=== PATIENT | male | born 1950 | race Caucasian/White ===

== ENCOUNTER → 2017-04-23 | Outpatient (CLI) | payer MEDICARE ==
[~2017-04-23] MED LIST: ACET325 PO; ALBU90OI INH; ALPR.25 PO; ALPR1 PO; Amox Tr-K Clv1 EAC2 PO; Augmentin 875-1 EACH PO; BACL20 PO; CEPH500; CEPH500 PO; CIPR500 PO; CYCL10 PO; Cipro500 MG PO; GABA300 PO; HYDR-86 PO; LEVO750 PO; LORA.5 PO; MAGCIT300 PO; NAPR500 PO; Norco 5-325 Ta1 EACH PO; OXYC15ER PO; Omeprazole20 M1 PO; PARO20 PO; POTCHL20ER PO; PREG100 PO; SEPTRA; TEMA15 PO; TRAZ100; TRAZ100 PO; TRAZ50 PO; VANCOMYCIN IV; ZOLP10; Zosyn 4.54.5 GM/100 IV
== END ==
LOC: LAB SHORT 15:00
DX: L89.219 Pressure ulcer of right hip, unspecified stage (principal)
CPT/HCPCS: 87070; 87205

== ENCOUNTER 2017-05-17 14:20 | Day surgery (SDC) | payer MEDICARE ==
[~2017-05-17 14:20] MED LIST changes: -ACET325 PO; -ALPR.25 PO; -ALPR1 PO; -Amox Tr-K Clv1 EAC2 PO; -Augmentin 875-1 EACH PO; -CEPH500 PO; -CYCL10 PO; -Cipro500 MG PO; -GABA300 PO; -LEVO750 PO; -Omeprazole20 M1 PO; -VANCOMYCIN IV; -Zosyn 4.54.5 GM/100 IV
[2017-06-11] MEDS ORDERED: TEMA15 PO (20:25)
[2017-06-15] MEDS ORDERED: Augmentin 875-1 EACH PO (14:50)
[2017-06-15] MEDS ORDERED: LEVO750 PO (14:50)
[2018-01-23] MEDS ORDERED: CEPH500 PO (17:27)
== END 2017-05-17 23:33 | disposition home or self-care (01) ==
LOC: WOUND 14:20
PROC: 2W1NX6Z Compression of Right Upper Leg using Pressure Dressing (ICD-10-PCS; principal; 2017-05-17)
DX: Z48.00 Encounter for change or removal of nonsurgical wound dressing (principal); L89.313 Pressure ulcer of right buttock, stage 3; F17.210 Nicotine dependence, cigarettes, uncomplicated
CPT/HCPCS: G0463

== ENCOUNTER 2017-05-24 00:39 | Day surgery (SDC) | payer MEDICARE ==
[2017-06-11] MEDS ORDERED: TEMA15 PO (20:25)
[2017-06-15] MEDS ORDERED: Augmentin 875-1 EACH PO (14:50)
[2017-06-15] MEDS ORDERED: LEVO750 PO (14:50)
[2018-01-23] MEDS ORDERED: CEPH500 PO (17:27)
== END 2017-05-24 17:07 | disposition home or self-care (01) ==
LOC: WOUND 00:39
PROC: 2W0LX6Z Change Pressure Dressing on Right Lower Extremity (ICD-10-PCS; principal; 2017-05-24)
DX: Z48.00 Encounter for change or removal of nonsurgical wound dressing (principal); L89.313 Pressure ulcer of right buttock, stage 3; F17.218 Nicotine dependence, cigarettes, with other nicotine-induced disorders

== ENCOUNTER 2017-05-31 14:20 | Day surgery (SDC) | payer MEDICARE ==
[2017-06-11] MEDS ORDERED: TEMA15 PO (20:25)
[2017-06-15] MEDS ORDERED: LEVO750 PO (14:50)
[2017-06-15] MEDS ORDERED: Augmentin 875-1 EACH PO (14:50)
[2018-01-23] MEDS ORDERED: CEPH500 PO (17:27)
== END 2017-05-31 15:07 | disposition home or self-care (01) ==
LOC: WOUND 14:20
PROC: 2W15X6Z Compression of Back using Pressure Dressing (ICD-10-PCS; principal; 2017-05-31)
DX: Z48.00 Encounter for change or removal of nonsurgical wound dressing (principal); L89.313 Pressure ulcer of right buttock, stage 3; F17.218 Nicotine dependence, cigarettes, with other nicotine-induced disorders

== ENCOUNTER 2017-06-07 14:20 | Day surgery (SDC) | payer MEDICARE ==
[2017-06-11] MEDS ORDERED: TEMA15 PO (20:25)
[2017-06-15] MEDS ORDERED: Augmentin 875-1 EACH PO (14:50)
[2017-06-15] MEDS ORDERED: LEVO750 PO (14:50)
[2018-01-23] MEDS ORDERED: CEPH500 PO (17:27)
== END 2017-06-07 17:17 | disposition home or self-care (01) ==
LOC: WOUND 14:20
PROC: 2W0LX6Z Change Pressure Dressing on Right Lower Extremity (ICD-10-PCS; principal; 2017-06-07)
DX: Z48.00 Encounter for change or removal of nonsurgical wound dressing (principal); L89.313 Pressure ulcer of right buttock, stage 3; F17.218 Nicotine dependence, cigarettes, with other nicotine-induced disorders

== ENCOUNTER 2017-06-11 11:52 | Inpatient (IN) | payer MEDICARE, OTHER ==
[~2017-06-11] VITALS: Ht 172.7 cm; Wt 68.1 kg
[2017-06-11 12:52] LABS: BASOPHILS ABSOLUTE AUTO 0.05 K/mm3 (0.00-0.23); BASOPHILS PERCENT AUTO 0 % (0-2); EOSINOPHILS PERCENT AUTO 2 % (0-6); Hematocrit 44.4 % (37.0-53.0); Hemoglobin 14.3 g/dL (13.5-17.5); IMMATURE GRAN ABSOLUTE AUTO 0.06 K/mm3 (0.00-0.10); IMMATURE GRAN PERCENT AUTO 1 % (0-1); LYMPHOCYTES ABSOLUTE AUTO 0.98 K/mm3 (0.84-5.20); LYMPHOCYTES PERCENT AUTO 9 % (21-46); MONOCYTES ABSOLUTE AUTO 0.06 K/mm3 (0.16-1.47); MONOCYTES PERCENT AUTO 1 % (4-13); Mean Corpuscular HGB 30.5 pg (26.0-34.0); Mean Corpuscular HGB Conc 32.2 g/dL (31.5-36.5); Mean Corpuscular Volume 95 fL (80-100); Mean Platelet Volume 9.3 fL (9.1-12.4); NEUTROPHILS ABSOLUTE AUTO 10.01 K/mm3 (1.96-9.15); NEUTROPHILS PERCENT AUTO 88 % (41-73); Platelet Count 309 K/mm3 (150-400); RDW Coefficient Variation 14.2 % (11.7-14.2); RDW Standard Deviation 49.6 fL (35.1-46.3); Red Blood Cell Count 4.69 M/mm3 (4.30-5.90); White Blood Cell Count 11.36 K/mm3 (4.00-11.30)
[2017-06-11 13:18] LABS: Alanine Aminotransfer (ALT/SGP 13 U/L (12-78); Albumin, Blood 2.9 g/dL (3.4-5.0); Albumin/Globulin Ratio 0.6 (0.8-1.8); Alk Phos 79 U/L (50-136); Anion Gap 6 mmol/L (6-16); Aspartate Aminotrans (AST/SGOT 11 U/L (12-37); Bilirubin, Total 0.2 mg/dL (0.1-1.0); Blood Urea Nitrogen 7 mg/dL (8-24); Bun/Creatinine Ratio 12.3 (12.0-20.0); CO2, Blood 32 mmol/L (21-32); Calcium, Blood 8.7 mg/dL (8.5-10.1); Chloride, Blood 103 mmol/L (98-108); Creatinine, Blood 0.57 mg/dL (0.60-1.20); Globulin, Blood 4.5 g/dL (2.2-4.0); Glomerular Filtration Rate >60 (60-); Glucose, Blood 109 mg/dL (70-99); Potassium, Blood 3.9 mmol/L (3.5-5.5); Sodium, Blood 141 mmol/L (136-145); Total Protein, Blood 7.4 g/dL (6.4-8.2)
[2017-06-11 14:47] LABS: Source, Urine Catheter
[2017-06-11 15:17] LABS: Appearance, Urine Clear (Clear); Bilirubin, Urine Neg (Neg); Blood, Urine 4+ (Neg); Color, Urine Yellow (P-Yellow); Glucose Qualitative, Urine Neg (Neg); Ketones, Urine Neg (Neg); Leukocyte Esterase, Urine 3+ (Neg); Nitrite, Urine Pos (Neg); Protein, Urine 2+ (Neg); Urobilinogen, Urine NORM (Normal)
[2017-06-11 15:26] LABS: White Blood Cells, Urine 50-100 /hpf (0-5)
[2017-06-11 15:27] LABS: Amorphous Mod (0-Heavy); Bacteria Mod /hpf; Squamous Epithelial Cells Few /hpf (Few)
[2017-06-11] MEDS ORDERED: TEMA15 PO ×2 (20:25)
[2017-06-12 04:55] LABS: BASOPHILS ABSOLUTE AUTO 0.04 K/mm3 (0.00-0.23); BASOPHILS PERCENT AUTO 0 % (0-2); EOSINOPHILS ABSOLUTE AUTO 0.09 K/mm3 (0.00-0.68); EOSINOPHILS PERCENT AUTO 1 % (0-6); Hematocrit 40.4 % (37.0-53.0); Hemoglobin 13.3 g/dL (13.5-17.5); IMMATURE GRAN ABSOLUTE AUTO 0.04 K/mm3 (0.00-0.10); IMMATURE GRAN PERCENT AUTO 0 % (0-1); LYMPHOCYTES ABSOLUTE AUTO 1.09 K/mm3 (0.84-5.20); LYMPHOCYTES PERCENT AUTO 9 % (21-46); MONOCYTES ABSOLUTE AUTO 0.58 K/mm3 (0.16-1.47); MONOCYTES PERCENT AUTO 5 % (4-13); Mean Corpuscular HGB 30.4 pg (26.0-34.0); Mean Corpuscular HGB Conc 32.9 g/dL (31.5-36.5); Mean Platelet Volume 9.5 fL (9.1-12.4); NEUTROPHILS ABSOLUTE AUTO 9.82 K/mm3 (1.96-9.15); NEUTROPHILS PERCENT AUTO 84 % (41-73); Platelet Count 251 K/mm3 (150-400); RDW Coefficient Variation 14.5 % (11.7-14.2); RDW Standard Deviation 49.1 fL (35.1-46.3); Red Blood Cell Count 4.37 M/mm3 (4.30-5.90); White Blood Cell Count 11.66 K/mm3 (4.00-11.30)
[2017-06-12 04:59] LABS: Mean Corpuscular Volume 92 fL (80-100)
[2017-06-12 05:10] LABS: Anion Gap 6 mmol/L (6-16); Blood Urea Nitrogen 5 mg/dL (8-24); Bun/Creatinine Ratio 9.4 (12.0-20.0); CO2, Blood 30 mmol/L (21-32); Calcium, Blood 8.3 mg/dL (8.5-10.1); Chloride, Blood 102 mmol/L (98-108); Creatinine, Blood 0.53 mg/dL (0.60-1.20); Glomerular Filtration Rate >60 (60-); Glucose, Blood 110 mg/dL (70-99); Potassium, Blood 3.1 mmol/L (3.5-5.5); Sodium, Blood 138 mmol/L (136-145)
[2017-06-12 18:32] LABS: Vancomycin, Trough 10.2 ug/mL (5.0-10.0)
[2017-06-13 04:49] LABS: BASOPHILS ABSOLUTE AUTO 0.03 K/mm3 (0.00-0.23); BASOPHILS PERCENT AUTO 1 % (0-2); EOSINOPHILS ABSOLUTE AUTO 0.16 K/mm3 (0.00-0.68); EOSINOPHILS PERCENT AUTO 3 % (0-6); Hematocrit 36.8 % (37.0-53.0); Hemoglobin 11.9 g/dL (13.5-17.5); IMMATURE GRAN ABSOLUTE AUTO 0.03 K/mm3 (0.00-0.10); IMMATURE GRAN PERCENT AUTO 1 % (0-1); LYMPHOCYTES ABSOLUTE AUTO 1.41 K/mm3 (0.84-5.20); LYMPHOCYTES PERCENT AUTO 23 % (21-46); MONOCYTES ABSOLUTE AUTO 0.78 K/mm3 (0.16-1.47); MONOCYTES PERCENT AUTO 13 % (4-13); Mean Corpuscular HGB 30.4 pg (26.0-34.0); Mean Corpuscular HGB Conc 32.3 g/dL (31.5-36.5); Mean Corpuscular Volume 94 fL (80-100); Mean Platelet Volume 9.4 fL (9.1-12.4); NEUTROPHILS PERCENT AUTO 61 % (41-73); Platelet Count 231 K/mm3 (150-400); RDW Coefficient Variation 14.6 % (11.7-14.2); RDW Standard Deviation 51.2 fL (35.1-46.3); Red Blood Cell Count 3.91 M/mm3 (4.30-5.90); White Blood Cell Count 6.11 K/mm3 (4.00-11.30)
[2017-06-13 05:09] LABS: Anion Gap 7 mmol/L (6-16); Blood Urea Nitrogen 9 mg/dL (8-24); Bun/Creatinine Ratio 13.7 (12.0-20.0); CO2, Blood 29 mmol/L (21-32); Calcium, Blood 7.9 mg/dL (8.5-10.1); Chloride, Blood 105 mmol/L (98-108); Creatinine, Blood 0.66 mg/dL (0.60-1.20); Glomerular Filtration Rate >60 (60-); Glucose, Blood 106 mg/dL (70-99); Potassium, Blood 3.6 mmol/L (3.5-5.5); Sodium, Blood 141 mmol/L (136-145)
[2017-06-14 17:36] LABS: Creatinine, Blood 1.19 mg/dL (0.60-1.20); Vancomycin, Trough 24.2 ug/mL (5.0-10.0)
[2017-06-15 05:10] LABS: BASOPHILS ABSOLUTE AUTO 0.04 K/mm3 (0.00-0.23); BASOPHILS PERCENT AUTO 1 % (0-2); EOSINOPHILS ABSOLUTE AUTO 0.23 K/mm3 (0.00-0.68); EOSINOPHILS PERCENT AUTO 3 % (0-6); Hematocrit 40.9 % (37.0-53.0); Hemoglobin 13.1 g/dL (13.5-17.5); IMMATURE GRAN ABSOLUTE AUTO 0.03 K/mm3 (0.00-0.10); IMMATURE GRAN PERCENT AUTO 0 % (0-1); LYMPHOCYTES ABSOLUTE AUTO 2.29 K/mm3 (0.84-5.20); LYMPHOCYTES PERCENT AUTO 30 % (21-46); MONOCYTES ABSOLUTE AUTO 0.64 K/mm3 (0.16-1.47); MONOCYTES PERCENT AUTO 8 % (4-13); Mean Corpuscular HGB 30.1 pg (26.0-34.0); Mean Corpuscular Volume 94 fL (80-100); Mean Platelet Volume 9.3 fL (9.1-12.4); NEUTROPHILS ABSOLUTE AUTO 4.38 K/mm3 (1.96-9.15); NEUTROPHILS PERCENT AUTO 58 % (41-73); Platelet Count 250 K/mm3 (150-400); RDW Coefficient Variation 14.4 % (11.7-14.2); RDW Standard Deviation 50.7 fL (35.1-46.3); Red Blood Cell Count 4.35 M/mm3 (4.30-5.90); White Blood Cell Count 7.61 K/mm3 (4.00-11.30)
[2017-06-15 05:44] LABS: Anion Gap 6 mmol/L (6-16); Blood Urea Nitrogen 9 mg/dL (8-24); Bun/Creatinine Ratio 8.8 (12.0-20.0); CO2, Blood 29 mmol/L (21-32); Calcium, Blood 8.1 mg/dL (8.5-10.1); Chloride, Blood 107 mmol/L (98-108); Creatinine, Blood 1.02 mg/dL (0.60-1.20); Glomerular Filtration Rate >60 (60-); Glucose, Blood 103 mg/dL (70-99); Potassium, Blood 3.4 mmol/L (3.5-5.5); Sodium, Blood 142 mmol/L (136-145)
[2017-06-15] MEDS ORDERED: LEVO750 PO ×2 (14:50)
[2017-06-15] MEDS ORDERED: Augmentin 875-1 EACH PO ×2 (14:50)
[2018-01-23] MEDS ORDERED: CEPH500 PO (17:27)
== END 2017-06-15 15:57 | disposition home health service (06) | DRG 570 ==
LOC: ER 11:52 → ERHOLD 17:10 → MEDS 17:10 → ENPENDDIS 06-15 10:30 → MEDS 06-15 15:57
PROVIDERS: Emergency Medicine; Internal Medicine; Physician Assistant
PROC: 0JB90ZZ Excision of Buttock Subcutaneous Tissue and Fascia, Open Approach (ICD-10-PCS; principal; 2017-06-14)
DX: L03.115 Cellulitis of right lower limb (principal); L89.314 Pressure ulcer of right buttock, stage 4; G82.20 Paraplegia, unspecified; Z93.51 Cutaneous-vesicostomy status; F17.200 Nicotine dependence, unspecified, uncomplicated; R33.9 Retention of urine, unspecified; Z79.2 Long term (current) use of antibiotics; Z79.891 Long term (current) use of opiate analgesic; R82.71 Bacteriuria; E87.6 Hypokalemia; B95.0 Streptococcus, group A, as the cause of diseases classified elsewhere; B96.4 Proteus (mirabilis) (morganii) as the cause of diseases classified elsewhere; Z16.29 Resistance to other single specified antibiotic
CPT/HCPCS: 36415; 71046; 72193; 80048; 80053; 80202; 81001; 82565; 82947; 83605; 85025; 87040; 87070; 87075; 87077; 87086; 87147; 87186; 87205; 96365; 96366; 96375; 99285; C9113; G0463; J1650; J2543; J3370; J7030; J7050; Q9967

== ENCOUNTER 2017-06-21 00:49 | Day surgery (SDC) | payer MEDICARE ==
[~2017-06-21 00:49] MED LIST changes: +Augmentin 875-1 EACH PO; +LEVO750 PO
[2018-01-23] MEDS ORDERED: CEPH500 PO (17:27)
== END 2017-06-21 23:20 | disposition home or self-care (01) ==
LOC: WOUND 00:49
PROC: 0HB6XZZ Excision of Back Skin, External Approach (ICD-10-PCS; principal; 2017-06-21)
DX: Z48.00 Encounter for change or removal of nonsurgical wound dressing (principal); L89.153 Pressure ulcer of sacral region, stage 3; F17.210 Nicotine dependence, cigarettes, uncomplicated
CPT/HCPCS: G0463

== ENCOUNTER 2017-06-26 00:16 | Day surgery (SDC) | payer MEDICARE ==
[2018-01-23] MEDS ORDERED: CEPH500 PO (17:27)
== END 2017-06-26 15:29 | disposition home or self-care (01) ==
LOC: WOUND 00:16
DX: Z48.00 Encounter for change or removal of nonsurgical wound dressing (principal); L89.313 Pressure ulcer of right buttock, stage 3; F17.210 Nicotine dependence, cigarettes, uncomplicated; G82.20 Paraplegia, unspecified
CPT/HCPCS: G0463

== ENCOUNTER 2017-07-01 00:22 | Day surgery (SDC) | payer MEDICARE ==
[2017-07-01] MEDS ORDERED: Amox Tr-K Clv1 EAC2 PO (16:00)
[2018-01-23] MEDS ORDERED: CEPH500 PO (17:27)
== END 2017-07-01 15:45 | disposition home or self-care (01) ==
LOC: WOUND 00:22
DX: Z48.00 Encounter for change or removal of nonsurgical wound dressing (principal); L89.313 Pressure ulcer of right buttock, stage 3; F17.210 Nicotine dependence, cigarettes, uncomplicated
CPT/HCPCS: G0463

== ENCOUNTER 2017-07-01 15:18 | Emergency (ER) | payer MEDICARE ==
[~2017-07-01] VITALS: Ht 170.2 cm; Wt 74.8 kg
[2017-07-01] MEDS ORDERED: Amox Tr-K Clv1 EAC2 PO (16:00)
[2018-01-23] MEDS ORDERED: CEPH500 PO (17:27)
== END 2017-07-01 16:57 | disposition home or self-care (01) ==
LOC: ER 15:18
DX: S00.83XA Contusion of other part of head, initial encounter (principal); Z79.899 Other long term (current) drug therapy; Z79.2 Long term (current) use of antibiotics; Z79.891 Long term (current) use of opiate analgesic; Z87.891 Personal history of nicotine dependence; W01.198A Fall on same level from slipping, tripping and stumbling with subsequent striking against other object, initial encounter
CPT/HCPCS: 99282

== ENCOUNTER 2017-07-09 16:07 | Emergency (ER) | payer MEDICARE, OTHER ==
[~2017-07-09] VITALS: Ht 170.2 cm; Wt 70.8 kg
[~2017-07-09 16:07] MED LIST changes: +Amox Tr-K Clv1 EAC2 PO
[2017-07-09 19:06] LABS: BASOPHILS ABSOLUTE AUTO 0.06 K/mm3 (0.00-0.23); BASOPHILS PERCENT AUTO 1 % (0-2); EOSINOPHILS ABSOLUTE AUTO 0.21 K/mm3 (0.00-0.68); EOSINOPHILS PERCENT AUTO 2 % (0-6); Hematocrit 40.3 % (37.0-53.0); Hemoglobin 13.1 g/dL (13.5-17.5); IMMATURE GRAN ABSOLUTE AUTO 0.06 K/mm3 (0.00-0.10); IMMATURE GRAN PERCENT AUTO 1 % (0-1); LYMPHOCYTES ABSOLUTE AUTO 1.63 K/mm3 (0.84-5.20); LYMPHOCYTES PERCENT AUTO 14 % (21-46); MONOCYTES ABSOLUTE AUTO 0.72 K/mm3 (0.16-1.47); MONOCYTES PERCENT AUTO 6 % (4-13); Mean Corpuscular HGB 29.6 pg (26.0-34.0); Mean Corpuscular HGB Conc 32.5 g/dL (31.5-36.5); Mean Corpuscular Volume 91 fL (80-100); Mean Platelet Volume 9.3 fL (9.1-12.4); NEUTROPHILS ABSOLUTE AUTO 8.78 K/mm3 (1.96-9.15); NEUTROPHILS PERCENT AUTO 77 % (41-73); Platelet Count 272 K/mm3 (150-400); RDW Coefficient Variation 13.5 % (11.7-14.2); RDW Standard Deviation 45.6 fL (35.1-46.3); Red Blood Cell Count 4.43 M/mm3 (4.30-5.90); White Blood Cell Count 11.46 K/mm3 (4.00-11.30)
[2017-07-09 19:23] LABS: Alanine Aminotransfer (ALT/SGP 14 U/L (12-78); Albumin, Blood 2.9 g/dL (3.4-5.0); Albumin/Globulin Ratio 0.8 (0.8-1.8); Alk Phos 82 U/L (50-136); Anion Gap 7 mmol/L (6-16); Aspartate Aminotrans (AST/SGOT 20 U/L (12-37); Bilirubin, Total 0.2 mg/dL (0.1-1.0); Blood Urea Nitrogen 8 mg/dL (8-24); Bun/Creatinine Ratio 15.5 (12.0-20.0); CO2, Blood 30 mmol/L (21-32); Calcium, Blood 8.5 mg/dL (8.5-10.1); Chloride, Blood 102 mmol/L (98-108); Creatinine, Blood 0.52 mg/dL (0.60-1.20); Globulin, Blood 3.7 g/dL (2.2-4.0); Glomerular Filtration Rate >60 (60-); Glucose, Blood 114 mg/dL (70-99); Potassium, Blood 3.4 mmol/L (3.5-5.5); Sodium, Blood 139 mmol/L (136-145); Total Protein, Blood 6.6 g/dL (6.4-8.2)
[2018-01-23] MEDS ORDERED: CEPH500 PO (17:27)
== END 2017-07-09 21:50 | disposition home or self-care (01) ==
LOC: ER 16:07
PROVIDERS: Physician Assistant
DX: S20.212A Contusion of left front wall of thorax, initial encounter (principal); Z79.899 Other long term (current) drug therapy; Z79.2 Long term (current) use of antibiotics; Z79.891 Long term (current) use of opiate analgesic; Z87.891 Personal history of nicotine dependence; V47.5XXA Car driver injured in collision with fixed or stationary object in traffic accident, initial encounter
CPT/HCPCS: 36415; 70450; 71046; 71260; 72125; 74177; 80053; 83690; 85025; 93005; 93010; 96374; 96375; 96376; 99284; J1170; J3010; Q9967

== ENCOUNTER 2017-07-15 00:34 | Day surgery (SDC) | payer MEDICARE, OTHER ==
[2018-01-23] MEDS ORDERED: CEPH500 PO (17:27)
== END 2017-07-15 22:50 | disposition home or self-care (01) ==
LOC: WOUND
DX: Z48.00 Encounter for change or removal of nonsurgical wound dressing (principal); L89.313 Pressure ulcer of right buttock, stage 3; F17.210 Nicotine dependence, cigarettes, uncomplicated
CPT/HCPCS: G0463

== ENCOUNTER 2017-07-23 13:30 | Day surgery (SDC) | payer MEDICARE ==
[2018-01-23] MEDS ORDERED: CEPH500 PO (17:27)
== END 2017-07-23 23:18 | disposition home or self-care (01) ==
LOC: WOUND 13:30
PROC: 2W15X6Z Compression of Back using Pressure Dressing (ICD-10-PCS; principal; 2017-07-23)
PROC: 0HB8XZZ Excision of Buttock Skin, External Approach (ICD-10-PCS; principal; 2017-07-23)
DX: L89.313 Pressure ulcer of right buttock, stage 3 (principal); G82.20 Paraplegia, unspecified; Z90.49 Acquired absence of other specified parts of digestive tract; F17.210 Nicotine dependence, cigarettes, uncomplicated
CPT/HCPCS: G0463

== ENCOUNTER 2017-07-29 13:55 | Day surgery (SDC) | payer MEDICARE ==
[2018-01-23] MEDS ORDERED: CEPH500 PO (17:27)
== END 2017-07-29 23:14 | disposition home or self-care (01) ==
LOC: WOUND 13:55
PROC: 0HB8XZZ Excision of Buttock Skin, External Approach (ICD-10-PCS; principal; 2017-07-29)
DX: Z48.00 Encounter for change or removal of nonsurgical wound dressing (principal); L89.314 Pressure ulcer of right buttock, stage 4; F17.218 Nicotine dependence, cigarettes, with other nicotine-induced disorders
CPT/HCPCS: 87070; 87075; 87205

== ENCOUNTER 2017-08-05 00:19 | Day surgery (SDC) | payer MEDICARE ==
[2018-01-23] MEDS ORDERED: CEPH500 PO (17:27)
== END 2017-08-05 16:54 | disposition home or self-care (01) ==
LOC: WOUND 00:19
PROC: 2W1LX6Z Compression of Right Lower Extremity using Pressure Dressing (ICD-10-PCS; principal; 2017-08-05)
DX: L89.313 Pressure ulcer of right buttock, stage 3 (principal); F17.218 Nicotine dependence, cigarettes, with other nicotine-induced disorders
CPT/HCPCS: G0463

== ENCOUNTER 2017-08-12 00:40 | Day surgery (SDC) | payer MEDICARE ==
[2018-01-23] MEDS ORDERED: CEPH500 PO (17:27)
== END 2017-08-12 15:00 | disposition home or self-care (01) ==
LOC: WOUND 00:40
PROC: 2W0LX6Z Change Pressure Dressing on Right Lower Extremity (ICD-10-PCS; principal; 2017-08-12)
DX: Z48.00 Encounter for change or removal of nonsurgical wound dressing (principal); L89.313 Pressure ulcer of right buttock, stage 3; F17.218 Nicotine dependence, cigarettes, with other nicotine-induced disorders

== ENCOUNTER 2017-08-26 13:14 | Day surgery (SDC) | payer MEDICARE | END 2017-08-26 23:19 | disposition home or self-care (01) | LOC: WOUND 13:14 | PROC: 2W1LX6Z Compression of Right Lower Extremity using Pressure Dressing (ICD-10-PCS; principal; 2017-08-26) | DX: L89.313 Pressure ulcer of right buttock, stage 3 (principal); F17.210 Nicotine dependence, cigarettes, uncomplicated | CPT/HCPCS: G0463 ==

== ENCOUNTER 2017-09-09 13:30 | Day surgery (SDC) | payer MEDICARE | END 2017-09-09 23:09 | disposition home or self-care (01) | LOC: WOUND 13:30 | PROC: 2W1LX6Z Compression of Right Lower Extremity using Pressure Dressing (ICD-10-PCS; principal; 2017-09-09) | DX: L89.314 Pressure ulcer of right buttock, stage 4 (principal); F17.210 Nicotine dependence, cigarettes, uncomplicated | CPT/HCPCS: G0463 ==

== ENCOUNTER 2017-09-23 00:49 | Day surgery (SDC) | payer MEDICARE | END 2017-09-23 22:43 | disposition home or self-care (01) | LOC: WOUND 00:49 | PROC: 2W1LX6Z Compression of Right Lower Extremity using Pressure Dressing (ICD-10-PCS; principal; 2017-09-23) | PROC: 0HB6XZZ Excision of Back Skin, External Approach (ICD-10-PCS; principal; 2017-09-23) | DX: L89.313 Pressure ulcer of right buttock, stage 3 (principal); F17.218 Nicotine dependence, cigarettes, with other nicotine-induced disorders ==

== ENCOUNTER 2017-10-03 11:00 | Day surgery (SDC) | payer MEDICARE | END 2017-10-03 14:04 | disposition home or self-care (01) | LOC: WOUND 11:00 | PROC: 0HBJXZZ Excision of Left Upper Leg Skin, External Approach (ICD-10-PCS; principal; 2017-10-03) | DX: L89.320 Pressure ulcer of left buttock, unstageable (principal); L89.313 Pressure ulcer of right buttock, stage 3; F17.218 Nicotine dependence, cigarettes, with other nicotine-induced disorders | CPT/HCPCS: G0463 ==

== ENCOUNTER 2017-10-18 15:35 | Inpatient (IN) | payer MEDICARE ==
[~2017-10-18] VITALS: Ht 172.7 cm; Wt 64.5 kg
[2017-10-18 16:10] LABS: BASOPHILS ABSOLUTE AUTO 0.04 K/mm3 (0.00-0.23); BASOPHILS PERCENT AUTO 0 % (0-2); EOSINOPHILS PERCENT AUTO 2 % (0-6); Hemoglobin 13.3 g/dL (13.5-17.5); IMMATURE GRAN ABSOLUTE AUTO 0.06 K/mm3 (0.00-0.10); IMMATURE GRAN PERCENT AUTO 1 % (0-1); LYMPHOCYTES ABSOLUTE AUTO 1.79 K/mm3 (0.84-5.20); LYMPHOCYTES PERCENT AUTO 14 % (21-46); MONOCYTES ABSOLUTE AUTO 1.39 K/mm3 (0.16-1.47); MONOCYTES PERCENT AUTO 11 % (4-13); Mean Corpuscular HGB 30.9 pg (26.0-34.0); Mean Corpuscular HGB Conc 34.1 g/dL (31.5-36.5); Mean Corpuscular Volume 91 fL (80-100); Mean Platelet Volume 9.9 fL (9.1-12.4); NEUTROPHILS ABSOLUTE AUTO 9.72 K/mm3 (1.96-9.15); NEUTROPHILS PERCENT AUTO 73 % (41-73); Platelet Count 275 K/mm3 (150-400); RDW Coefficient Variation 13.4 % (11.7-14.2); RDW Standard Deviation 45.1 fL (35.1-46.3)
[2017-10-18 16:26] LABS: Alanine Aminotransfer (ALT/SGP 14 U/L (12-78); Albumin, Blood 2.6 g/dL (3.4-5.0); Albumin/Globulin Ratio 0.6 (0.8-1.8); Alk Phos 87 U/L (50-136); Anion Gap 6 mmol/L (6-16); Aspartate Aminotrans (AST/SGOT 13 U/L (12-37); Bilirubin, Total 0.3 mg/dL (0.1-1.0); Blood Urea Nitrogen 7 mg/dL (8-24); Bun/Creatinine Ratio 15.4 (12.0-20.0); CO2, Blood 29 mmol/L (21-32); Calcium, Blood 8.3 mg/dL (8.5-10.1); Chloride, Blood 100 mmol/L (98-108); Creatinine, Blood 0.46 mg/dL (0.60-1.20); Globulin, Blood 4.1 g/dL (2.2-4.0); Glomerular Filtration Rate >60 (60-); Glucose, Blood 157 mg/dL (70-99); Potassium, Blood 3.6 mmol/L (3.5-5.5); Sodium, Blood 135 mmol/L (136-145); Total Protein, Blood 6.7 g/dL (6.4-8.2)
[2017-10-18] MEDS ORDERED: ALPR1 PO (16:34)
[2017-10-18] MEDS ORDERED: Omeprazole20 M1 PO (16:35)
[2017-10-18] MEDS ORDERED: GABA300 PO (16:53)
[2017-10-19 05:37] LABS: Hematocrit 36.6 % (37.0-53.0); Hemoglobin 12.2 g/dL (13.5-17.5); Mean Corpuscular HGB 30.3 pg (26.0-34.0); Mean Corpuscular HGB Conc 33.3 g/dL (31.5-36.5); Mean Corpuscular Volume 91 fL (80-100); Mean Platelet Volume 10.3 fL (9.1-12.4); Platelet Count 270 K/mm3 (150-400); RDW Coefficient Variation 13.5 % (11.7-14.2); RDW Standard Deviation 45.5 fL (35.1-46.3); Red Blood Cell Count 4.03 M/mm3 (4.30-5.90); White Blood Cell Count 11.24 K/mm3 (4.00-11.30)
[2017-10-19 06:01] LABS: Anion Gap 5 mmol/L (6-16); Blood Urea Nitrogen 7 mg/dL (8-24); Bun/Creatinine Ratio 15.3 (12.0-20.0); CO2, Blood 34 mmol/L (21-32); Calcium, Blood 8.6 mg/dL (8.5-10.1); Chloride, Blood 100 mmol/L (98-108); Creatinine, Blood 0.46 mg/dL (0.60-1.20); Glomerular Filtration Rate >60 (60-); Glucose, Blood 156 mg/dL (70-99); Potassium, Blood 3.6 mmol/L (3.5-5.5); Sodium, Blood 139 mmol/L (136-145)
[2017-10-19 12:36] LABS: Vancomycin, Trough 14.6 ug/mL (5.0-10.0)
[2017-10-21 04:54] LABS: BASOPHILS ABSOLUTE AUTO 0.03 K/mm3 (0.00-0.23); BASOPHILS PERCENT AUTO 0 % (0-2); EOSINOPHILS ABSOLUTE AUTO 0.45 K/mm3 (0.00-0.68); EOSINOPHILS PERCENT AUTO 4 % (0-6); Hemoglobin 11.2 g/dL (13.5-17.5); IMMATURE GRAN ABSOLUTE AUTO 0.05 K/mm3 (0.00-0.10); IMMATURE GRAN PERCENT AUTO 1 % (0-1); LYMPHOCYTES ABSOLUTE AUTO 2.15 K/mm3 (0.84-5.20); LYMPHOCYTES PERCENT AUTO 20 % (21-46); MONOCYTES ABSOLUTE AUTO 0.79 K/mm3 (0.16-1.47); MONOCYTES PERCENT AUTO 7 % (4-13); Mean Corpuscular HGB 30.6 pg (26.0-34.0); Mean Corpuscular HGB Conc 32.9 g/dL (31.5-36.5); Mean Corpuscular Volume 93 fL (80-100); Mean Platelet Volume 10.3 fL (9.1-12.4); NEUTROPHILS ABSOLUTE AUTO 7.22 K/mm3 (1.96-9.15); NEUTROPHILS PERCENT AUTO 68 % (41-73); Platelet Count 297 K/mm3 (150-400); RDW Coefficient Variation 13.7 % (11.7-14.2); RDW Standard Deviation 46.6 fL (35.1-46.3); Red Blood Cell Count 3.66 M/mm3 (4.30-5.90); White Blood Cell Count 10.69 K/mm3 (4.00-11.30)
[2017-10-22 12:38] LABS: Vancomycin, Trough 19.5 ug/mL (5.0-10.0)
[2017-10-24] MEDS ORDERED: ACET325 PO (15:37)
[2017-10-24] MEDS ORDERED: Zosyn 4.54.5 GM/100 IV (15:38)
== END 2017-10-24 16:51 | DRG 579 ==
LOC: ER 15:35 → MEDS 18:58 → EDBEDREQ 19:59 → MEDS 20:21
PROVIDERS: Family Medicine; Nurse Practitioner Family; Orthopaedic Surgery; Physician Assistant
PROC: 0JD90ZZ Extraction of Buttock Subcutaneous Tissue and Fascia, Open Approach (ICD-10-PCS; 2017-10-20)
PROC: 0JD90ZZ Extraction of Buttock Subcutaneous Tissue and Fascia, Open Approach (ICD-10-PCS; principal; 2017-10-20 08:30)
DX: L89.324 Pressure ulcer of left buttock, stage 4 (principal); L03.317 Cellulitis of buttock; G82.20 Paraplegia, unspecified; F33.9 Major depressive disorder, recurrent, unspecified; L89.314 Pressure ulcer of right buttock, stage 4; B96.5 Pseudomonas (aeruginosa) (mallei) (pseudomallei) as the cause of diseases classified elsewhere; B95.2 Enterococcus as the cause of diseases classified elsewhere; B96.4 Proteus (mirabilis) (morganii) as the cause of diseases classified elsewhere; N31.9 Neuromuscular dysfunction of bladder, unspecified; F17.210 Nicotine dependence, cigarettes, uncomplicated; Z86.19 Personal history of other infectious and parasitic diseases; R53.81 Other malaise
CPT/HCPCS: 36415; 74177; 80048; 80053; 80202; 82565; 83605; 85025; 85027; 85651; 86140; 87040; 87070; 87075; 87077; 87081; 87186; 87205; 96365; 97161; 97166; 97530; 99285; G8978; G8979; G8980; G8987; G8988; G8989; J1650; J2250; J2543; J2710; J3010; J3370; J7030; J7120; Q9967

== ENCOUNTER 2017-11-04 14:00 | Day surgery (SDC) | payer MEDICARE ==
[~2017-11-04 14:00] MED LIST changes: +ACET325 PO; +ALPR1 PO; +GABA300 PO; +Omeprazole20 M1 PO; +Zosyn 4.54.5 GM/100 IV
== END 2017-11-04 23:16 | disposition home or self-care (01) ==
LOC: WOUND 14:00
DX: Z48.00 Encounter for change or removal of nonsurgical wound dressing (principal); L89.313 Pressure ulcer of right buttock, stage 3; F17.210 Nicotine dependence, cigarettes, uncomplicated; L89.894 Pressure ulcer of other site, stage 4
CPT/HCPCS: G0463

== ENCOUNTER 2017-11-13 13:18 | Day surgery (SDC) | payer MEDICARE | END 2017-11-13 15:58 | disposition home or self-care (01) | LOC: WOUND 13:18 | DX: Z48.00 Encounter for change or removal of nonsurgical wound dressing (principal); L89.313 Pressure ulcer of right buttock, stage 3; F17.210 Nicotine dependence, cigarettes, uncomplicated; L89.894 Pressure ulcer of other site, stage 4; S91.215A Laceration without foreign body of left lesser toe(s) with damage to nail, initial encounter | CPT/HCPCS: G0463 ==

== ENCOUNTER 2017-11-13 17:04 | Inpatient (IN) | payer OTHER, MEDICARE ==
[~2017-11-13] VITALS: Ht 170.2 cm; Wt 66.4 kg
[2017-11-13 19:09] LABS: BASOPHILS ABSOLUTE AUTO 0.03 K/mm3 (0.00-0.23); BASOPHILS PERCENT AUTO 0 % (0-2); EOSINOPHILS ABSOLUTE AUTO 0.11 K/mm3 (0.00-0.68); EOSINOPHILS PERCENT AUTO 1 % (0-6); Hemoglobin 13.6 g/dL (13.5-17.5); IMMATURE GRAN ABSOLUTE AUTO 0.05 K/mm3 (0.00-0.10); IMMATURE GRAN PERCENT AUTO 1 % (0-1); LYMPHOCYTES ABSOLUTE AUTO 1.35 K/mm3 (0.84-5.20); LYMPHOCYTES PERCENT AUTO 13 % (21-46); MONOCYTES PERCENT AUTO 8 % (4-13); Mean Corpuscular HGB 30.3 pg (26.0-34.0); Mean Corpuscular HGB Conc 32.4 g/dL (31.5-36.5); Mean Corpuscular Volume 94 fL (80-100); Mean Platelet Volume 9.8 fL (9.1-12.4); NEUTROPHILS ABSOLUTE AUTO 8.38 K/mm3 (1.96-9.15); NEUTROPHILS PERCENT AUTO 78 % (41-73); Platelet Count 262 K/mm3 (150-400); RDW Coefficient Variation 14.1 % (11.7-14.2); RDW Standard Deviation 48.9 fL (35.1-46.3); Red Blood Cell Count 4.49 M/mm3 (4.30-5.90); White Blood Cell Count 10.72 K/mm3 (4.00-11.30)
[2017-11-13 19:29] LABS: Alanine Aminotransfer (ALT/SGP 16 U/L (12-78); Albumin, Blood 2.4 g/dL (3.4-5.0); Albumin/Globulin Ratio 0.5 (0.8-1.8); Alk Phos 91 U/L (50-136); Anion Gap 10 mmol/L (6-16); Aspartate Aminotrans (AST/SGOT 20 U/L (12-37); Bilirubin, Total 0.4 mg/dL (0.1-1.0); Blood Urea Nitrogen 8 mg/dL (8-24); Bun/Creatinine Ratio 14.7 (12.0-20.0); CO2, Blood 23 mmol/L (21-32); Calcium, Blood 8.3 mg/dL (8.5-10.1); Chloride, Blood 102 mmol/L (98-108); Creatinine, Blood 0.55 mg/dL (0.60-1.20); Globulin, Blood 4.4 g/dL (2.2-4.0); Glomerular Filtration Rate >60 (60-); Glucose, Blood 178 mg/dL (70-99); Potassium, Blood 3.5 mmol/L (3.5-5.5); Sodium, Blood 135 mmol/L (136-145); Total Protein, Blood 6.8 g/dL (6.4-8.2)
[2017-11-14 04:52] LABS: BASOPHILS ABSOLUTE AUTO 0.03 K/mm3 (0.00-0.23); BASOPHILS PERCENT AUTO 0 % (0-2); EOSINOPHILS ABSOLUTE AUTO 0.25 K/mm3 (0.00-0.68); EOSINOPHILS PERCENT AUTO 3 % (0-6); Hematocrit 37.2 % (37.0-53.0); Hemoglobin 12.2 g/dL (13.5-17.5); IMMATURE GRAN ABSOLUTE AUTO 0.04 K/mm3 (0.00-0.10); IMMATURE GRAN PERCENT AUTO 1 % (0-1); LYMPHOCYTES ABSOLUTE AUTO 1.93 K/mm3 (0.84-5.20); LYMPHOCYTES PERCENT AUTO 22 % (21-46); MONOCYTES ABSOLUTE AUTO 1.18 K/mm3 (0.16-1.47); MONOCYTES PERCENT AUTO 14 % (4-13); Mean Corpuscular HGB 30.4 pg (26.0-34.0); Mean Corpuscular HGB Conc 32.8 g/dL (31.5-36.5); Mean Corpuscular Volume 93 fL (80-100); Mean Platelet Volume 10.1 fL (9.1-12.4); NEUTROPHILS ABSOLUTE AUTO 5.25 K/mm3 (1.96-9.15); NEUTROPHILS PERCENT AUTO 61 % (41-73); Platelet Count 234 K/mm3 (150-400); RDW Coefficient Variation 13.8 % (11.7-14.2); RDW Standard Deviation 47.2 fL (35.1-46.3); Red Blood Cell Count 4.01 M/mm3 (4.30-5.90); White Blood Cell Count 8.68 K/mm3 (4.00-11.30)
[2017-11-14 05:22] LABS: Anion Gap 8 mmol/L (6-16); Blood Urea Nitrogen 8 mg/dL (8-24); Bun/Creatinine Ratio 16.5 (12.0-20.0); CO2, Blood 30 mmol/L (21-32); Calcium, Blood 8.2 mg/dL (8.5-10.1); Chloride, Blood 101 mmol/L (98-108); Creatinine, Blood 0.49 mg/dL (0.60-1.20); Glomerular Filtration Rate >60 (60-); Glucose, Blood 104 mg/dL (70-99); Potassium, Blood 3.7 mmol/L (3.5-5.5); Sodium, Blood 139 mmol/L (136-145)
[2017-11-15 16:53] LABS: Creatinine, Blood 0.48 mg/dL (0.60-1.20)
[2017-11-16 05:26] LABS: BASOPHILS ABSOLUTE AUTO 0.02 K/mm3 (0.00-0.23); BASOPHILS PERCENT AUTO 0 % (0-2); EOSINOPHILS ABSOLUTE AUTO 0.48 K/mm3 (0.00-0.68); EOSINOPHILS PERCENT AUTO 6 % (0-6); Hematocrit 31.2 % (37.0-53.0); Hemoglobin 10.1 g/dL (13.5-17.5); IMMATURE GRAN ABSOLUTE AUTO 0.03 K/mm3 (0.00-0.10); IMMATURE GRAN PERCENT AUTO 0 % (0-1); LYMPHOCYTES ABSOLUTE AUTO 1.67 K/mm3 (0.84-5.20); LYMPHOCYTES PERCENT AUTO 22 % (21-46); MONOCYTES ABSOLUTE AUTO 0.57 K/mm3 (0.16-1.47); MONOCYTES PERCENT AUTO 8 % (4-13); Mean Corpuscular HGB 30.2 pg (26.0-34.0); Mean Corpuscular HGB Conc 32.4 g/dL (31.5-36.5); Mean Corpuscular Volume 93 fL (80-100); Mean Platelet Volume 10.2 fL (9.1-12.4); NEUTROPHILS ABSOLUTE AUTO 4.68 K/mm3 (1.96-9.15); NEUTROPHILS PERCENT AUTO 63 % (41-73); Platelet Count 258 K/mm3 (150-400); RDW Coefficient Variation 13.9 % (11.7-14.2); RDW Standard Deviation 47.4 fL (35.1-46.3); Red Blood Cell Count 3.34 M/mm3 (4.30-5.90); White Blood Cell Count 7.45 K/mm3 (4.00-11.30)
[2017-11-16 06:02] LABS: Creatinine, Blood 0.53 mg/dL (0.60-1.20); Vancomycin, Trough 9.1 ug/mL (5.0-10.0)
[2017-11-18 06:40] LABS: Vancomycin, Trough 9.2 ug/mL (5.0-10.0)
[2017-11-18] MEDS ORDERED: VANCOMYCIN IV (14:02)
[2017-11-18] MEDS ORDERED: ALPR.25 PO (14:02)
[2017-11-19 06:05] LABS: Creatinine, Blood 0.51 mg/dL (0.60-1.20); Glomerular Filtration Rate >60 (60-); Vancomycin, Trough 14.6 ug/mL (5.0-10.0)
== END 2017-11-19 11:15 | DRG 570 ==
LOC: ER 17:04 → MEDS 23:08 → EDPENDDIS 11-18 13:34 → ENPENDDIS 11-18 13:34 → MEDS 11-19 05:41
PROVIDERS: Emergency Medicine; Internal Medicine; Nurse Practitioner Acute Care; Orthopaedic Surgery
PROC: 0JB90ZZ Excision of Buttock Subcutaneous Tissue and Fascia, Open Approach (ICD-10-PCS; principal; 2017-11-15 13:00)
PROC: 0Y6S0Z0 Detachment at Left 2nd Toe, Complete, Open Approach (ICD-10-PCS; 2017-11-15 13:00)
DX: L89.324 Pressure ulcer of left buttock, stage 4 (principal); G82.20 Paraplegia, unspecified; L89.314 Pressure ulcer of right buttock, stage 4; N31.9 Neuromuscular dysfunction of bladder, unspecified; B96.89 Other specified bacterial agents as the cause of diseases classified elsewhere; S90.415A Abrasion, left lesser toe(s), initial encounter; S90.414A Abrasion, right lesser toe(s), initial encounter; B95.62 Methicillin resistant Staphylococcus aureus infection as the cause of diseases classified elsewhere; F17.210 Nicotine dependence, cigarettes, uncomplicated; Z96.0 Presence of urogenital implants; R53.81 Other malaise; Z66 Do not resuscitate; X58.XXXA Exposure to other specified factors, initial encounter; Z86.19 Personal history of other infectious and parasitic diseases; Z79.899 Other long term (current) drug therapy; T14.8XXD Other injury of unspecified body region, subsequent encounter; V49.9XXD Car occupant (driver) (passenger) injured in unspecified traffic accident, subsequent encounter; Y93.89 Activity, other specified; Y92.481 Parking lot as the place of occurrence of the external cause; Z93.3 Colostomy status
CPT/HCPCS: 36415; 73630; 80048; 80053; 80202; 82565; 85025; 87070; 87077; 87147; 87186; 87205; 96365; 96375; 97161; 99285; G0463; G8978; G8979; G8980; J1956; J2001; J2250; J2543; J3010; J3370; J7030; J7120

== ENCOUNTER 2017-11-22 11:40 | Emergency (ER) | payer MEDICARE ==
[~2017-11-22] VITALS: Ht 172.7 cm; Wt 66.2 kg
[~2017-11-22 11:40] MED LIST changes: +ALPR.25 PO; +VANCOMYCIN IV
[2017-11-22] MEDS ORDERED: CYCL10 PO (11:59)
== END 2017-11-22 15:00 | disposition home or self-care (01) ==
LOC: ER 11:40
DX: L89.154 Pressure ulcer of sacral region, stage 4 (principal); F17.200 Nicotine dependence, unspecified, uncomplicated; Z79.899 Other long term (current) drug therapy

== ENCOUNTER → 2018-06-13 | Outpatient (CLI) | payer MEDICARE, OTHER ==
[~2018-06-13] MED LIST changes: +CEPH500 PO; +CYCL10 PO; +Cipro500 MG PO
[2018-06-13 17:55] LABS: Source, Urine Clean Catch
[2018-06-13 18:05] LABS: Appearance, Urine Cloudy (Clear); Bilirubin, Urine Neg (Neg); Blood, Urine 5+ (Neg); Color, Urine Red (P-Yellow); Glucose Qualitative, Urine Neg (Neg); Ketones, Urine Neg (Neg); Leukocyte Esterase, Urine 3+ (Neg); Nitrite, Urine Neg (Neg); Protein, Urine 3+ (Neg); Specific Gravity, Urine 1.015 (1.003-1.022); Urobilinogen, Urine NORM (Normal)
[2018-06-13 18:24] LABS: Bacteria Many /hpf; Red Blood Cells, Urine TNTC /hpf (0-2); Squamous Epithelial Cells Mod /hpf (Few); White Blood Cells, Urine 25-50 /hpf (0-5)
== END | disposition home or self-care (01) ==
LOC: LAB SHORT 13:00 → LAB 13:00
PROVIDERS: Family Medicine
DX: N39.0 Urinary tract infection, site not specified (principal)
CPT/HCPCS: 81001; 87077; 87086; 87186

== ENCOUNTER 2018-06-17 14:35 | Emergency (ER) | payer MEDICARE, OTHER ==
[~2018-06-17] VITALS: Ht 172.7 cm; Wt 68.0 kg
[~2018-06-17 14:35] MED LIST changes: -Cipro500 MG PO
[2018-06-17] MEDS ORDERED: Cipro500 MG PO (15:19)
== END 2018-06-17 17:15 | disposition home or self-care (01) ==
LOC: ER 14:35
DX: N39.0 Urinary tract infection, site not specified (principal); L89.159 Pressure ulcer of sacral region, unspecified stage; Z79.899 Other long term (current) drug therapy; F17.210 Nicotine dependence, cigarettes, uncomplicated
CPT/HCPCS: 96365; 96366; 99283-25; J0744

== ENCOUNTER → 2018-07-28 | Outpatient (CLI) | payer MEDICARE, OTHER ==
[~2018-07-28] MED LIST changes: +Cipro500 MG PO
== END | disposition home or self-care (01) ==
LOC: LAB 19:00 → LAB SHORT 19:00
DX: G82.20 Paraplegia, unspecified (principal); L89.324 Pressure ulcer of left buttock, stage 4; L89.313 Pressure ulcer of right buttock, stage 3
CPT/HCPCS: 87070; 87075; 87077; 87147; 87186; 87205

== ENCOUNTER → 2018-07-30 | Outpatient (CLI) | payer MEDICARE, OTHER ==
[2018-07-30 17:41] LABS: Source, Urine Catheter
[2018-07-30 18:02] LABS: Appearance, Urine Cloudy (Clear); Bilirubin, Urine Neg (Neg); Blood, Urine 5+ (Neg); Color, Urine Yellow (P-Yellow); Glucose Qualitative, Urine Neg (Neg); Ketones, Urine 1+ (Neg); Leukocyte Esterase, Urine 3+ (Neg); Nitrite, Urine Pos (Neg); Protein, Urine 2+ (Neg); Urobilinogen, Urine NORM (Normal)
[2018-07-30 18:39] LABS: Bacteria Many /hpf; Squamous Epithelial Cells Many /hpf (Few); White Blood Cells, Urine TNTC /hpf (0-5)
== END ==
LOC: LAB SHORT 17:40 → LAB 17:40
PROVIDERS: Nurse Practitioner Family
DX: N39.0 Urinary tract infection, site not specified (principal); G82.20 Paraplegia, unspecified
CPT/HCPCS: 81001; 87077; 87086; 87186

== ENCOUNTER 2018-08-20 11:43 | Day surgery (SDC) | payer MEDICARE, OTHER | END 2018-08-20 23:10 | disposition home or self-care (01) | LOC: WOUND 11:43 | DX: L89.324 Pressure ulcer of left buttock, stage 4 (principal); J44.9 Chronic obstructive pulmonary disease, unspecified; G82.20 Paraplegia, unspecified; Z87.891 Personal history of nicotine dependence; Z87.828 Personal history of other (healed) physical injury and trauma | CPT/HCPCS: 87070; 87075; 87077; 87147; 87186; 87205; 88305; 88312; G0463 ==

== ENCOUNTER 2018-08-29 12:30 | Day surgery (SDC) | payer MEDICARE, OTHER | END 2018-08-29 23:37 | disposition home or self-care (01) | LOC: WOUND 12:30 | DX: L89.324 Pressure ulcer of left buttock, stage 4 (principal); J44.9 Chronic obstructive pulmonary disease, unspecified; G82.20 Paraplegia, unspecified; E78.5 Hyperlipidemia, unspecified; Z87.891 Personal history of nicotine dependence ==

== ENCOUNTER 2018-09-04 14:20 | Day surgery (SDC) | payer MEDICARE, OTHER | END 2018-09-04 22:44 | disposition home or self-care (01) | LOC: WOUND 14:20 | DX: L89.324 Pressure ulcer of left buttock, stage 4 (principal); G82.20 Paraplegia, unspecified; E78.5 Hyperlipidemia, unspecified; J44.9 Chronic obstructive pulmonary disease, unspecified; Z87.891 Personal history of nicotine dependence ==

== ENCOUNTER 2018-09-11 14:33 | Day surgery (SDC) | payer MEDICARE, OTHER | END 2018-09-12 00:42 | disposition home or self-care (01) | LOC: WOUND 14:33 | DX: L89.324 Pressure ulcer of left buttock, stage 4 (principal); G62.9 Polyneuropathy, unspecified; J44.9 Chronic obstructive pulmonary disease, unspecified; G82.20 Paraplegia, unspecified; Z87.891 Personal history of nicotine dependence | CPT/HCPCS: 72193; G0463 ==

== ENCOUNTER 2018-09-18 14:00 | Day surgery (SDC) | payer MEDICARE, OTHER | END 2018-09-18 22:43 | disposition home or self-care (01) | LOC: WOUND 14:00 | DX: L89.314 Pressure ulcer of right buttock, stage 4 (principal); J44.9 Chronic obstructive pulmonary disease, unspecified; E78.5 Hyperlipidemia, unspecified; G82.20 Paraplegia, unspecified; Z87.891 Personal history of nicotine dependence ==

== ENCOUNTER → 2018-09-30 | Outpatient (CLI) | payer MEDICARE, OTHER ==
[2018-09-30 18:10] LABS: Bilirubin, Urine Neg (Neg); Blood, Urine 1+ (Neg); Glucose Qualitative, Urine Neg (Neg); Ketones, Urine Neg (Neg); Leukocyte Esterase, Urine 2+ (Neg); Nitrite, Urine Neg (Neg); Protein, Urine Neg (Neg); Urobilinogen, Urine NORM (Normal)
[2018-09-30 18:37] LABS: Appearance, Urine Hazy (Clear); Color, Urine Yellow (P-Yellow)
[2018-09-30 18:38] LABS: White Blood Cells, Urine 25-50 /hpf (0-5)
[2018-09-30 18:39] LABS: Bacteria Mod /hpf; Squamous Epithelial Cells Mod /hpf (Few)
== END | disposition home or self-care (01) ==
LOC: LAB SHORT 14:35 → LAB 14:35
PROVIDERS: Registered Nurse
DX: N30.20 Other chronic cystitis without hematuria (principal)
CPT/HCPCS: 81001

== ENCOUNTER 2018-10-02 00:37 | Day surgery (SDC) | payer MEDICARE, OTHER | END 2018-10-02 22:43 | disposition home or self-care (01) | LOC: WOUND 00:37 | DX: L89.324 Pressure ulcer of left buttock, stage 4 (principal); J44.9 Chronic obstructive pulmonary disease, unspecified; E78.5 Hyperlipidemia, unspecified; D64.9 Anemia, unspecified; Z87.891 Personal history of nicotine dependence ==

== ENCOUNTER 2018-10-09 00:56 | Day surgery (SDC) | payer MEDICARE, OTHER | END 2018-10-09 22:56 | disposition home or self-care (01) | LOC: WOUND 00:56 | DX: L89.324 Pressure ulcer of left buttock, stage 4 (principal); L89.313 Pressure ulcer of right buttock, stage 3; J44.9 Chronic obstructive pulmonary disease, unspecified; E78.5 Hyperlipidemia, unspecified; D64.9 Anemia, unspecified; Z87.891 Personal history of nicotine dependence ==

== ENCOUNTER 2018-10-16 14:44 | Day surgery (SDC) | payer MEDICARE, OTHER | END 2018-10-16 23:10 | disposition home or self-care (01) | LOC: WOUND 14:44 | DX: L89.324 Pressure ulcer of left buttock, stage 4 (principal); J44.9 Chronic obstructive pulmonary disease, unspecified; D64.9 Anemia, unspecified; E78.5 Hyperlipidemia, unspecified; Z87.891 Personal history of nicotine dependence | CPT/HCPCS: G0463 ==

== ENCOUNTER 2018-10-23 14:35 | Day surgery (SDC) | payer MEDICARE, OTHER | END 2018-10-23 22:41 | disposition home or self-care (01) | LOC: WOUND 14:35 | DX: L89.324 Pressure ulcer of left buttock, stage 4 (principal); L89.313 Pressure ulcer of right buttock, stage 3; J44.9 Chronic obstructive pulmonary disease, unspecified; E78.5 Hyperlipidemia, unspecified; D64.9 Anemia, unspecified; Z87.891 Personal history of nicotine dependence | CPT/HCPCS: G0463 ==

== ENCOUNTER 2018-10-30 14:28 | Day surgery (SDC) | payer MEDICARE, OTHER | END 2018-10-30 23:22 | disposition home or self-care (01) | LOC: WOUND 14:28 | DX: L89.324 Pressure ulcer of left buttock, stage 4 (principal); J44.9 Chronic obstructive pulmonary disease, unspecified; G82.20 Paraplegia, unspecified; Z72.0 Tobacco use | CPT/HCPCS: G0463 ==

== ENCOUNTER 2018-11-06 14:15 | Day surgery (SDC) | payer MEDICARE, OTHER | END 2018-11-06 22:44 | disposition home or self-care (01) | LOC: WOUND 14:15 | DX: L89.314 Pressure ulcer of right buttock, stage 4 (principal); G82.20 Paraplegia, unspecified; J44.9 Chronic obstructive pulmonary disease, unspecified; Z72.0 Tobacco use | CPT/HCPCS: G0463 ==

== ENCOUNTER 2018-11-11 10:02 | Day surgery (SDC) | payer MEDICARE, OTHER | END 2018-11-11 22:59 | disposition home or self-care (01) | LOC: CT 10:02 | DX: L89.323 Pressure ulcer of left buttock, stage 3 (principal); J44.9 Chronic obstructive pulmonary disease, unspecified; E78.5 Hyperlipidemia, unspecified; F32.9 Major depressive disorder, single episode, unspecified; F41.9 Anxiety disorder, unspecified; Z87.891 Personal history of nicotine dependence | CPT/HCPCS: 20225; 77012; 88305 ==

== ENCOUNTER 2018-11-27 14:26 | Day surgery (SDC) | payer MEDICARE, OTHER | END 2018-11-27 22:53 | disposition home or self-care (01) | LOC: WOUND 14:26 | DX: L89.324 Pressure ulcer of left buttock, stage 4 (principal); F17.210 Nicotine dependence, cigarettes, uncomplicated; G62.9 Polyneuropathy, unspecified; J44.9 Chronic obstructive pulmonary disease, unspecified; E78.5 Hyperlipidemia, unspecified; G82.20 Paraplegia, unspecified | CPT/HCPCS: G0463 ==

== ENCOUNTER 2018-12-04 00:23 | Day surgery (SDC) | payer MEDICARE, OTHER | END 2018-12-04 22:50 | disposition home or self-care (01) | LOC: WOUND 00:23 | DX: L89.324 Pressure ulcer of left buttock, stage 4 (principal); L89.313 Pressure ulcer of right buttock, stage 3; E11.40 Type 2 diabetes mellitus with diabetic neuropathy, unspecified; J44.9 Chronic obstructive pulmonary disease, unspecified; E78.5 Hyperlipidemia, unspecified; D64.9 Anemia, unspecified; Z87.891 Personal history of nicotine dependence | CPT/HCPCS: G0463 ==

== ENCOUNTER 2018-12-11 01:41 | Inpatient (IN) | payer MEDICARE, OTHER ==
[~2018-12-11] VITALS: Ht 170.2 cm; Wt 72.6 kg
[2018-12-11 01:55] LABS: BASOPHILS ABSOLUTE AUTO 0.03 K/mm3 (0.00-0.23); BASOPHILS PERCENT AUTO 0 % (0-2); EOSINOPHILS ABSOLUTE AUTO 0.21 K/mm3 (0.00-0.68); EOSINOPHILS PERCENT AUTO 2 % (0-6); Hematocrit 33.4 % (37.0-53.0); Hemoglobin 10.8 g/dL (13.5-17.5); IMMATURE GRAN ABSOLUTE AUTO 0.05 K/mm3 (0.00-0.10); IMMATURE GRAN PERCENT AUTO 1 % (0-1); LYMPHOCYTES ABSOLUTE AUTO 2.31 K/mm3 (0.84-5.20); LYMPHOCYTES PERCENT AUTO 21 % (21-46); MONOCYTES ABSOLUTE AUTO 1.39 K/mm3 (0.16-1.47); MONOCYTES PERCENT AUTO 13 % (4-13); Mean Corpuscular HGB 27.3 pg (26.0-34.0); Mean Corpuscular HGB Conc 32.3 g/dL (31.5-36.5); Mean Corpuscular Volume 85 fL (80-100); NEUTROPHILS PERCENT AUTO 64 % (41-73); Platelet Count 333 K/mm3 (150-400); RDW Coefficient Variation 15.1 % (11.7-14.2); RDW Standard Deviation 46.3 fL (35.1-46.3); Red Blood Cell Count 3.95 M/mm3 (4.30-5.90); White Blood Cell Count 11.09 K/mm3 (4.00-11.30)
[2018-12-11 02:14] LABS: Alanine Aminotransfer (ALT/SGP 14 U/L (12-78); Albumin, Blood 2.4 g/dL (3.4-5.0); Albumin/Globulin Ratio 0.6 (0.8-1.8); Alk Phos 69 U/L (50-136); Anion Gap 7 mmol/L (6-16); Aspartate Aminotrans (AST/SGOT 18 U/L (12-37); Bilirubin, Total 0.3 mg/dL (0.1-1.0); Blood Urea Nitrogen 12 mg/dL (8-24); CO2, Blood 30 mmol/L (21-32); Chloride, Blood 97 mmol/L (98-108); Globulin, Blood 3.8 g/dL (2.2-4.0); Glomerular Filtration Rate >60 (60-); Glucose, Blood 154 mg/dL (70-99); Potassium, Blood 3.8 mmol/L (3.5-5.5); Sodium, Blood 134 mmol/L (136-145); Total Protein, Blood 6.2 g/dL (6.4-8.2)
[2018-12-11 02:40] LABS: Source, Urine Catheter
[2018-12-11 02:43] LABS: Appearance, Urine Cloudy (Clear); Bilirubin, Urine Neg (Neg); Blood, Urine 4+ (Neg); Color, Urine Yellow (P-Yellow); Glucose Qualitative, Urine Neg (Neg); Ketones, Urine Neg (Neg); Leukocyte Esterase, Urine 3+ (Neg); Nitrite, Urine Neg (Neg); Protein, Urine 2+ (Neg); Urobilinogen, Urine NORM (Normal)
[2018-12-11 02:49] LABS: Amorphous Mod (0-Heavy); Bacteria Many /hpf; Red Blood Cells, Urine 0-2 /hpf (0-2); Squamous Epithelial Cells Mod /hpf (Few)
[2018-12-11] MEDS ORDERED: Oxycodone HCl20 M1 PO (03:56)
[2018-12-11 05:30] LABS: Hematocrit 33.8 % (37.0-53.0); Mean Corpuscular HGB 27.6 pg (26.0-34.0); Mean Corpuscular HGB Conc 32.5 g/dL (31.5-36.5); Mean Corpuscular Volume 85 fL (80-100); Mean Platelet Volume 9.9 fL (9.1-12.4); Platelet Count 294 K/mm3 (150-400); RDW Coefficient Variation 15.3 % (11.7-14.2); RDW Standard Deviation 47.8 fL (35.1-46.3); Red Blood Cell Count 3.99 M/mm3 (4.30-5.90); White Blood Cell Count 10.37 K/mm3 (4.00-11.30)
[2018-12-11 05:59] LABS: Alanine Aminotransfer (ALT/SGP 11 U/L (12-78); Albumin, Blood 2.2 g/dL (3.4-5.0); Albumin/Globulin Ratio 0.6 (0.8-1.8); Alk Phos 66 U/L (50-136); Anion Gap 6 mmol/L (6-16); Aspartate Aminotrans (AST/SGOT 19 U/L (12-37); Bilirubin, Total 0.3 mg/dL (0.1-1.0); Blood Urea Nitrogen 9 mg/dL (8-24); Bun/Creatinine Ratio 19.6 (12.0-20.0); CO2, Blood 28 mmol/L (21-32); Calcium, Blood 7.5 mg/dL (8.5-10.1); Chloride, Blood 103 mmol/L (98-108); Creatinine, Blood 0.46 mg/dL (0.60-1.20); Globulin, Blood 3.7 g/dL (2.2-4.0); Glomerular Filtration Rate >60 (60-); Glucose, Blood 119 mg/dL (70-99); Potassium, Blood 3.3 mmol/L (3.5-5.5); Sodium, Blood 137 mmol/L (136-145); Total Protein, Blood 5.9 g/dL (6.4-8.2)
--- NOTE | 2018-12-11 17:29 | NUR ---
PATIENT IS A/O X4 AND COOPERATIVE WITH CARE. PATIENT IS A PARAPLEGIC WHO HAS A SP CATH AND WAS ADMITTED FOR A UTI. TREATING WITH IV ABX. PATIENT HAS LARGE WOUND TO L BUTTOCK AND HAS BEEN GOING TO WOUND CLINIC FOR TREATMENT. WOUND CLINIC CONSULTED, BUT ARE NOT ABLE TO SEE INPATIENTS. WOUND CLINIC HAS BEEN USING ALGINATE ROPE AND FOAM DRESSING TO TREAT WOUND. DR CLEARY GAVE ORDERS TO CONTINUE THIS TREATMENT. PATIENT ALSO HAS WOUNDS TO TOES THAT HE STATES ARE FROM HIS TOES GETTING CAUGHT IN HIS WHEEL CHAIR. HYPOTENSIVE THIS AM AND 250CC NS BOLUS WAS GIVEN TO TREAT. 22G IV TO L WRIST WNL, NS @ 75 INFUSING AND WILL BE SL AFTER THIS BAG.
--- NOTE | 2018-12-12 04:44 | NUR ---
SHIFT SUMMARY PT SLEPT THE ENTIRE SHIFT EXCEPT WHEN WOKEN BY STAFF. DID NOT APPEAR TO BE IN ANY PAIN OR DISCOMFORT. REPORTED SOME PAIN TO BUTTUCKS WHEN WOKEN BUT FALLS RIGHT BACK ASLEEP. DRESSING TO R BUTTUCKS PRESSURE ULCER CHANGED WITH ALGINATE AND A FOAM DRESSING. R HIP LOOKS IF A PRESSURE SORE COULD BE FORMING, EDUCATED PT ON NEED TO REPOSITION. PT FAVORS BEING ON THE RIGHT SIDE BUT IS COOPERATIVE WITH TURNING. BLOOD PRESSURE REMAINS LOW THIS EVENING IN THE 90'S TO LOW 100'S. OTHERWISE VITAL SIGNS STABLE. NO ACUTE CHANGES THIS SHIFT. WILL CONTINUE TO MONITOR.
[2018-12-12 05:37] LABS: BASOPHILS ABSOLUTE AUTO 0.02 K/mm3 (0.00-0.23); BASOPHILS PERCENT AUTO 0 % (0-2); EOSINOPHILS ABSOLUTE AUTO 0.42 K/mm3 (0.00-0.68); EOSINOPHILS PERCENT AUTO 6 % (0-6); Hematocrit 33.3 % (37.0-53.0); Hemoglobin 10.7 g/dL (13.5-17.5); IMMATURE GRAN ABSOLUTE AUTO 0.03 K/mm3 (0.00-0.10); IMMATURE GRAN PERCENT AUTO 0 % (0-1); LYMPHOCYTES ABSOLUTE AUTO 1.54 K/mm3 (0.84-5.20); LYMPHOCYTES PERCENT AUTO 22 % (21-46); MONOCYTES PERCENT AUTO 9 % (4-13); Mean Corpuscular HGB 27.7 pg (26.0-34.0); Mean Corpuscular HGB Conc 32.1 g/dL (31.5-36.5); Mean Corpuscular Volume 86 fL (80-100); Mean Platelet Volume 9.8 fL (9.1-12.4); NEUTROPHILS ABSOLUTE AUTO 4.37 K/mm3 (1.96-9.15); NEUTROPHILS PERCENT AUTO 63 % (41-73); Platelet Count 336 K/mm3 (150-400); RDW Coefficient Variation 15.9 % (11.7-14.2); RDW Standard Deviation 50.2 fL (35.1-46.3); Red Blood Cell Count 3.86 M/mm3 (4.30-5.90); White Blood Cell Count 6.98 K/mm3 (4.00-11.30)
[2018-12-12 05:59] LABS: Alanine Aminotransfer (ALT/SGP 18 U/L (12-78); Albumin, Blood 1.9 g/dL (3.4-5.0); Albumin/Globulin Ratio 0.5 (0.8-1.8); Alk Phos 59 U/L (50-136); Anion Gap 4 mmol/L (6-16); Aspartate Aminotrans (AST/SGOT 18 U/L (12-37); Bilirubin, Total 0.2 mg/dL (0.1-1.0); Blood Urea Nitrogen 5 mg/dL (8-24); Bun/Creatinine Ratio 11.6 (12.0-20.0); CO2, Blood 28 mmol/L (21-32); Calcium, Blood 7.8 mg/dL (8.5-10.1); Chloride, Blood 111 mmol/L (98-108); Creatinine, Blood 0.43 mg/dL (0.60-1.20); Globulin, Blood 3.5 g/dL (2.2-4.0); Glomerular Filtration Rate >60 (60-); Glucose, Blood 112 mg/dL (70-99); Sodium, Blood 143 mmol/L (136-145); Total Protein, Blood 5.4 g/dL (6.4-8.2)
--- NOTE | 2018-12-12 08:20 | NUR ---
0823 AIDE CALLED ME TO ROOM. B/P 90/50. P 95. HARD TO AROUSE. O2 AT 88% ADDED 2L O2. PT AWAKE, TALKING. APPEARS SLOW TO AWAKEN. PT STATES THIGH DOWN NO FEELING. PARAPLEGIC. TOES BLACKISH. SEE PICS. LARGE LEFT BUTTOCK WDOUND. MEPILEX IN PLACE. WILL CHANGE NEED. KEEPING PT OFF MUCH POSS. SEE PIX. PT HAS OSTOMY. PROVIDES OWN CARE AT HOME. WE ASSISTING AT HOSP. PT HAS SUPRAPUBIC CATH. DRAINING YELLOW FLUID. PT A/O. DENIES PAIN AT THIS TIME. PLEASANT BED IN LOW POSITION,C ALL LITE IN REACH. CALLS APPROP
--- NOTE | 2018-12-12 19:31 | NUR ---
PT CALLED FOR PAIN MED JUST PRIOR TO SHIFT CHANGE. GAVE HIS OXY REQUESTED. HE STATES TAKES 20 MG 5 TIMES DAILY. PT STATES TOOK OWN MED ABOUT NOON. I WAS ABLE TO REMOVE HIS BOTTLE OF OXYCODONE 20 MG PILL BOTTLE. 24 PLUS 2 PARTIAL PIECES WERE TURNED IN TO PHARMACY. DISCUSSED WHY DANGEROUS TO TAKE OWN PILLS. GAVE TO RICKI PICKENS TO CALL DR TO ADJUST TO MORE OF HIS HOME DOSES. NO OTHER CONCERNS AT THIS TIME. BED IN LOW PSITIOIN, CALL LITE IN REACH, CALLS APROP
[2018-12-13 05:15] LABS: BASOPHILS ABSOLUTE AUTO 0.03 K/mm3 (0.00-0.23); BASOPHILS PERCENT AUTO 1 % (0-2); EOSINOPHILS ABSOLUTE AUTO 0.28 K/mm3 (0.00-0.68); EOSINOPHILS PERCENT AUTO 4 % (0-6); IMMATURE GRAN ABSOLUTE AUTO 0.02 K/mm3 (0.00-0.10); IMMATURE GRAN PERCENT AUTO 0 % (0-1); LYMPHOCYTES PERCENT AUTO 46 % (21-46); MONOCYTES ABSOLUTE AUTO 0.66 K/mm3 (0.16-1.47); MONOCYTES PERCENT AUTO 10 % (4-13); Mean Corpuscular HGB 27.5 pg (26.0-34.0); Mean Corpuscular HGB Conc 31.3 g/dL (31.5-36.5); Mean Corpuscular Volume 88 fL (80-100); Mean Platelet Volume 9.6 fL (9.1-12.4); NEUTROPHILS ABSOLUTE AUTO 2.59 K/mm3 (1.96-9.15); NEUTROPHILS PERCENT AUTO 39 % (41-73); Platelet Count 384 K/mm3 (150-400); RDW Standard Deviation 52.1 fL (35.1-46.3); Red Blood Cell Count 3.64 M/mm3 (4.30-5.90); White Blood Cell Count 6.58 K/mm3 (4.00-11.30)
[2018-12-13 05:58] LABS: Alanine Aminotransfer (ALT/SGP 10 U/L (12-78); Albumin, Blood 1.8 g/dL (3.4-5.0); Albumin/Globulin Ratio 0.5 (0.8-1.8); Alk Phos 52 U/L (50-136); Anion Gap 3 mmol/L (6-16); Aspartate Aminotrans (AST/SGOT 12 U/L (12-37); Bilirubin, Total 0.3 mg/dL (0.1-1.0); Blood Urea Nitrogen 8 mg/dL (8-24); Bun/Creatinine Ratio 14.3 (12.0-20.0); CO2, Blood 31 mmol/L (21-32); Calcium, Blood 7.8 mg/dL (8.5-10.1); Chloride, Blood 110 mmol/L (98-108); Creatinine, Blood 0.56 mg/dL (0.60-1.20); Globulin, Blood 3.3 g/dL (2.2-4.0); Glomerular Filtration Rate >60 (60-); Glucose, Blood 109 mg/dL (70-99); Potassium, Blood 4.2 mmol/L (3.5-5.5); Sodium, Blood 144 mmol/L (136-145); Total Protein, Blood 5.1 g/dL (6.4-8.2)
--- NOTE | 2018-12-13 07:23 | NUR ---
a+o, wound on coccyx dressing changed as directed, call light in reach, saline locked btwn anx doses, no major changes noted in medical condition, bsr completed with day staff
--- NOTE | 2018-12-13 19:13 | NUR ---
SHIFT SUMMARY: NO ACUTE CHANGES TO REPORT THIS SHIFT. PT A&O; CALM AND COOPERATIVE WITH CARE. MEDICATED FOR PAIN PER EMAR. TELE IN PLACE; SR @ 74 PER BEE FARMER DURING MORNING ASSESSMENT. OSTOMY APPLIANCE CHANGED THIS SHIFT. CHRONIC SUPRA-PUBIC CATHETER; PT IS PARAPLEGIC. IV ABX CONTINUING. REPORT GIVEN TO ONCOMING RN.
[2018-12-14 06:06] LABS: BASOPHILS ABSOLUTE AUTO 0.04 K/mm3 (0.00-0.23); BASOPHILS PERCENT AUTO 1 % (0-2); EOSINOPHILS ABSOLUTE AUTO 0.26 K/mm3 (0.00-0.68); EOSINOPHILS PERCENT AUTO 4 % (0-6); Hematocrit 35.5 % (37.0-53.0); Hemoglobin 11.1 g/dL (13.5-17.5); IMMATURE GRAN ABSOLUTE AUTO 0.02 K/mm3 (0.00-0.10); IMMATURE GRAN PERCENT AUTO 0 % (0-1); LYMPHOCYTES ABSOLUTE AUTO 1.99 K/mm3 (0.84-5.20); LYMPHOCYTES PERCENT AUTO 31 % (21-46); MONOCYTES ABSOLUTE AUTO 0.57 K/mm3 (0.16-1.47); MONOCYTES PERCENT AUTO 9 % (4-13); Mean Corpuscular HGB 27.4 pg (26.0-34.0); Mean Corpuscular HGB Conc 31.3 g/dL (31.5-36.5); Mean Corpuscular Volume 88 fL (80-100); Mean Platelet Volume 9.6 fL (9.1-12.4); NEUTROPHILS ABSOLUTE AUTO 3.61 K/mm3 (1.96-9.15); NEUTROPHILS PERCENT AUTO 56 % (41-73); Platelet Count 409 K/mm3 (150-400); RDW Coefficient Variation 16.3 % (11.7-14.2); RDW Standard Deviation 52.4 fL (35.1-46.3); Red Blood Cell Count 4.05 M/mm3 (4.30-5.90); White Blood Cell Count 6.49 K/mm3 (4.00-11.30)
[2018-12-14 07:08] LABS: Alanine Aminotransfer (ALT/SGP 20 U/L (12-78); Albumin, Blood 1.9 g/dL (3.4-5.0); Albumin/Globulin Ratio 0.5 (0.8-1.8); Alk Phos 59 U/L (50-136); Anion Gap 4 mmol/L (6-16); Aspartate Aminotrans (AST/SGOT 26 U/L (12-37); Bilirubin, Total 0.2 mg/dL (0.1-1.0); Blood Urea Nitrogen 9 mg/dL (8-24); Bun/Creatinine Ratio 19.3 (12.0-20.0); CO2, Blood 33 mmol/L (21-32); Chloride, Blood 108 mmol/L (98-108); Creatinine, Blood 0.47 mg/dL (0.60-1.20); Globulin, Blood 3.5 g/dL (2.2-4.0); Glomerular Filtration Rate >60 (60-); Glucose, Blood 106 mg/dL (70-99); Potassium, Blood 4.2 mmol/L (3.5-5.5); Sodium, Blood 145 mmol/L (136-145); Total Protein, Blood 5.4 g/dL (6.4-8.2)
--- NOTE | 2018-12-14 07:28 | NUR ---
a+o, dressing changed, call light in reach, saline locked room air, sbar report given to returning day staff, pain was controlled with current medication
--- NOTE | 2018-12-14 19:38 | NUR ---
SHIFT SUMMARY: NO ACUTE CHANGES TO REPORT THSI SHIFT. PT A&O; CALM AND COOPERATIVE WITH CARE. MEDICATED FOR PAIN PER EMAR. TELE IN PLACE. OSTOMY APPLIANCE INTACT; PT DOES SELF-CARE. SUPRA-PUBIC CATHETER IS PLACE; PATENT AND DRAINING. IV ABX CONTINUING. REPORT GIVEN TO ONCOMING RN.
--- NOTE | 2018-12-15 01:13 | NUR ---
DR Zavala updated on periarea skin rask and antifungal cream rx. Also updated MD on lack of documented provider visist. Notify provider order written. Also not to address skin of bilat feet.
--- NOTE | 2018-12-15 07:36 | NUR ---
PT slept through night soundly then awoken for AM med and wound care. Cooperative and assists to roll side to side. Lt buttock hip dcub dressing change this am and other skin issues addressed. No foul odor to deep wound. Calcium algonate packed in wound and covered with alyevin foam. Rt thigh scabbed area covered with foam. Rt hip scar covered with foam. Chronic pain medicated with tylenol 650 mg this AM and oxycodone 20 mg.
--- NOTE | 2018-12-15 08:50 | NUR ---
PT A/O C.O SOME PAIN IN L HIP. WOUND AREA, HIP. 11/26. STATES SHOULD GET PILLS FOR PAIN 5X/DAY. LAST DOSE 610, DOES NOT THINK SHOULD HAVE TO WAIT 5 HRS FOR NEXT DOSE. STATES THIS IS WHY KEPT OWN PAIN MEDS LAST WEEK. H/R REG, NO MURMER NOTED. PER TELE: NSR AT 64/ LUNGS CLEAR, RESP EASY, UNLABORED. ON R.A. BT X4 HAS COLOSTOMY. BAG HAS STOOL IN. PT HAS SUPRAPUBIC SLOAN. DRAINING YELLOW FLUID. PT IS PARAPLEGIC. STATES MOVES SELF FROM BED TO WHEELCHAIR IF NEEDS. MOSTLY STAYS IN BED. BLACK TOES TIPS. UCER L BUTTOCKS. RASH GROIN, SCAB LLE. BED IN LOW POSITOIN, CALL LITE IN REACH, CALLS APPROP
--- NOTE | 2018-12-15 11:08 | NUR ---
PT C/O PAIN, MED PER EMAR. Q5 HR. APPLIED NYSTATIN CREAM. ANA AREA AND DOWN LEFT LEG SOME. REDNESS. PLACED PILLOW TO CRADLE SCROTAL. BED IN LOW POSITOIN, CALL LITE IN REACH, CALLS APPPROP
--- NOTE | 2018-12-15 16:22 | NUR ---
PULLED DRESSING LOOSE. I REMOVED. REPACKED WITH CLEAN ALGENATE AND NEW MEPILEX.
--- NOTE | 2018-12-15 17:59 | NUR ---
PT MOSTLY PLEASNT TODAY. SOMEWHAT BOISTEROUS. IRRITABLE ON TRYING TO GET MED FOR PAIN EARLY. WOUND WAS REDRESSED FROM DR SALDAÑA TODAY. DID MENTION MAY POSS DISCHARGE TOMORROW. NO OTHER CONCERNS AT THIS TIME. BED IN LOW POSITION, CALL LITE IN REACH, CALLS APPROP
--- NOTE | 2018-12-16 06:05 | NUR ---
COATING AND BAKING OPERATOR SUMMARY NO ACUTE CHANGES THIS SHIFT. PT AAOX4 AND PLEASANT. MEDICATED FOR PAIN PER EMAR. PT HOPEFUL TO DC LATER TODAY. VSS, WILL CONTINUE TO MONITOR.
[2018-12-16] MEDS ORDERED: LEVFLO500 PO (14:00)
--- NOTE | 2018-12-16 14:50 | NUR ---
PT. DISCHARGED HOME WITH NEPHEW. [facility] BROUGHT FROM HOME TO TRANSPORT PT. HOME. PT. TO FOLLOW UP AT WOUND CARE, CALLED AND NOTIFIED THEM. HOME HEALTH NOTIFIED OF PT'S DISCHARGE HOME SO HH CAN FOLLOW. PT. TO FOLLOW UP WITH PODIATRY THROUGH HIS CRATING AND MOVING ESTIMATOR.
== END 2018-12-16 14:50 | disposition home or self-care (01) | DRG 698 ==
LOC: ER 01:41 → EDBEDREQ 04:35 → MEDS 04:38
PROVIDERS: Emergency Medicine; Family Medicine; ADMIT Internal Medicine
DX: T83.511A Infection and inflammatory reaction due to indwelling urethral catheter, initial encounter (principal); L89.224 Pressure ulcer of left hip, stage 4; A41.51 Sepsis due to Escherichia coli [E. coli]; I96 Gangrene, not elsewhere classified; G82.20 Paraplegia, unspecified; N39.0 Urinary tract infection, site not specified; E86.0 Dehydration; L97.509 Non-pressure chronic ulcer of other part of unspecified foot with unspecified severity; Z89.422 Acquired absence of other left toe(s); Z79.899 Other long term (current) drug therapy
CPT/HCPCS: 36415; 51705; 71045; 80053; 81001; 83605; 85025; 85027; 87040; 87086; 93005; 93010; 96361-59; 96365-59; 99285-25; A9270; C2627; J0696; J1650; J2185; J7030; J7050

== ENCOUNTER 2018-12-19 17:41 | Emergency (ER) | payer OTHER ==
[~2018-12-19] VITALS: Ht 167.6 cm; Wt 54.4 kg
[~2018-12-19 17:41] MED LIST changes: +LEVFLO500 PO; +Oxycodone HCl20 M1 PO
[2018-12-19] MEDS ORDERED: Oxycodone HCl20 M1 PO (18:48)
== END 2018-12-19 18:54 | disposition home or self-care (01) ==
LOC: ER 17:41
DX: K08.89 Other specified disorders of teeth and supporting structures (principal); L89.90 Pressure ulcer of unspecified site, unspecified stage; Z88.5 Allergy status to narcotic agent; Z88.8 Allergy status to other drugs, medicaments and biological substances; F17.210 Nicotine dependence, cigarettes, uncomplicated
CPT/HCPCS: 99281

== ENCOUNTER 2018-12-24 09:04 | Day surgery (SDC) | payer OTHER | END 2018-12-24 22:39 | disposition home or self-care (01) | LOC: WOUND 09:04 | DX: L89.314 Pressure ulcer of right buttock, stage 4 (principal); G62.9 Polyneuropathy, unspecified; J44.9 Chronic obstructive pulmonary disease, unspecified; E78.5 Hyperlipidemia, unspecified; G82.20 Paraplegia, unspecified; R50.9 Fever, unspecified; Z87.891 Personal history of nicotine dependence ==

== ENCOUNTER 2019-01-29 01:18 | Day surgery (SDC) | payer OTHER | END 2019-01-29 22:37 | disposition home or self-care (01) | LOC: WOUND 01:18 | DX: L89.153 Pressure ulcer of sacral region, stage 3 (principal); L89.324 Pressure ulcer of left buttock, stage 4; L89.313 Pressure ulcer of right buttock, stage 3; L89.312 Pressure ulcer of right buttock, stage 2; Z72.0 Tobacco use; R50.9 Fever, unspecified; E78.5 Hyperlipidemia, unspecified; J44.9 Chronic obstructive pulmonary disease, unspecified; Z87.891 Personal history of nicotine dependence ==

== ENCOUNTER 2019-02-03 00:40 | Day surgery (SDC) | payer OTHER | END 2019-02-03 22:47 | disposition home or self-care (01) | LOC: WOUND 00:40 | DX: L89.324 Pressure ulcer of left buttock, stage 4 (principal); L89.153 Pressure ulcer of sacral region, stage 3; L89.313 Pressure ulcer of right buttock, stage 3; L89.893 Pressure ulcer of other site, stage 3; Z87.891 Personal history of nicotine dependence ==

== ENCOUNTER 2019-02-12 00:15 | Day surgery (SDC) | payer OTHER | END 2019-02-12 23:46 | disposition home or self-care (01) | LOC: WOUND 00:15 | DX: L89.324 Pressure ulcer of left buttock, stage 4 (principal); L89.153 Pressure ulcer of sacral region, stage 3; J44.9 Chronic obstructive pulmonary disease, unspecified; E78.5 Hyperlipidemia, unspecified; G82.20 Paraplegia, unspecified; Z87.891 Personal history of nicotine dependence ==

== ENCOUNTER 2019-02-17 00:30 | Day surgery (SDC) | payer OTHER | END 2019-02-17 22:50 | disposition home or self-care (01) | LOC: WOUND 00:30 | DX: L89.324 Pressure ulcer of left buttock, stage 4 (principal); L89.153 Pressure ulcer of sacral region, stage 3; L89.313 Pressure ulcer of right buttock, stage 3; L89.893 Pressure ulcer of other site, stage 3; R50.9 Fever, unspecified; Z72.0 Tobacco use ==

== ENCOUNTER 2019-02-24 00:23 | Day surgery (SDC) | payer OTHER | END 2019-02-24 22:40 | disposition home or self-care (01) | LOC: WOUND 00:23 | DX: L89.324 Pressure ulcer of left buttock, stage 4 (principal); L89.153 Pressure ulcer of sacral region, stage 3; L89.313 Pressure ulcer of right buttock, stage 3; L89.893 Pressure ulcer of other site, stage 3; J44.9 Chronic obstructive pulmonary disease, unspecified; E78.5 Hyperlipidemia, unspecified; G82.20 Paraplegia, unspecified; Z87.891 Personal history of nicotine dependence ==

== ENCOUNTER 2019-03-10 00:22 | Day surgery (SDC) | payer OTHER | END 2019-03-10 22:43 | disposition home or self-care (01) | LOC: WOUND 00:22 | DX: L89.324 Pressure ulcer of left buttock, stage 4 (principal); L89.313 Pressure ulcer of right buttock, stage 3; L89.152 Pressure ulcer of sacral region, stage 2; Z87.891 Personal history of nicotine dependence; Z99.3 Dependence on wheelchair ==

== ENCOUNTER 2019-03-17 14:29 | Day surgery (SDC) | payer OTHER | END 2019-03-17 22:41 | disposition home or self-care (01) | LOC: WOUND 14:29 | DX: L89.324 Pressure ulcer of left buttock, stage 4 (principal); L89.313 Pressure ulcer of right buttock, stage 3; L89.152 Pressure ulcer of sacral region, stage 2; R50.9 Fever, unspecified; G62.9 Polyneuropathy, unspecified; J44.9 Chronic obstructive pulmonary disease, unspecified; E78.5 Hyperlipidemia, unspecified; G82.20 Paraplegia, unspecified; F41.9 Anxiety disorder, unspecified; D64.9 Anemia, unspecified; Z87.891 Personal history of nicotine dependence; Z79.899 Other long term (current) drug therapy ==

== ENCOUNTER 2019-03-30 14:40 | Emergency (ER) | payer OTHER ==
[~2019-03-30] VITALS: Ht 170.2 cm; Wt 72.6 kg
[2019-03-30 15:59] LABS: BASOPHILS ABSOLUTE AUTO 0.03 K/mm3 (0.00-0.23); BASOPHILS PERCENT AUTO 0 % (0-2); EOSINOPHILS ABSOLUTE AUTO 0.03 K/mm3 (0.00-0.68); EOSINOPHILS PERCENT AUTO 0 % (0-6); Hematocrit 38.7 % (37.0-53.0); Hemoglobin 12.3 g/dL (13.5-17.5); IMMATURE GRAN ABSOLUTE AUTO 0.07 K/mm3 (0.00-0.10); IMMATURE GRAN PERCENT AUTO 1 % (0-1); LYMPHOCYTES ABSOLUTE AUTO 1.12 K/mm3 (0.84-5.20); LYMPHOCYTES PERCENT AUTO 10 % (21-46); MONOCYTES ABSOLUTE AUTO 0.51 K/mm3 (0.16-1.47); MONOCYTES PERCENT AUTO 5 % (4-13); Mean Corpuscular HGB 27.3 pg (26.0-34.0); Mean Corpuscular HGB Conc 31.8 g/dL (31.5-36.5); Mean Corpuscular Volume 86 fL (80-100); Mean Platelet Volume 9.7 fL (9.1-12.4); NEUTROPHILS ABSOLUTE AUTO 9.43 K/mm3 (1.96-9.15); NEUTROPHILS PERCENT AUTO 84 % (41-73); Platelet Count 344 K/mm3 (150-400); RDW Coefficient Variation 16.5 % (11.7-14.2); RDW Standard Deviation 52.3 fL (35.1-46.3); Red Blood Cell Count 4.51 M/mm3 (4.30-5.90); White Blood Cell Count 11.19 K/mm3 (4.00-11.30)
[2019-03-30 16:10] LABS: Alanine Aminotransfer (ALT/SGP 15 U/L (12-78); Albumin, Blood 2.6 g/dL (3.4-5.0); Albumin/Globulin Ratio 0.7 (0.8-1.8); Alk Phos 88 U/L (50-136); Anion Gap 10 mmol/L (6-16); Aspartate Aminotrans (AST/SGOT 16 U/L (12-37); Bilirubin, Total 0.3 mg/dL (0.1-1.0); Blood Urea Nitrogen 7 mg/dL (8-24); Bun/Creatinine Ratio 18.4 (12.0-20.0); CO2, Blood 25 mmol/L (21-32); Calcium, Blood 8.4 mg/dL (8.5-10.1); Chloride, Blood 109 mmol/L (98-108); Creatinine, Blood 0.38 mg/dL (0.60-1.20); Globulin, Blood 3.9 g/dL (2.2-4.0); Glomerular Filtration Rate >60 (60-); Glucose, Blood 100 mg/dL (70-99); Sodium, Blood 144 mmol/L (136-145); Total Protein, Blood 6.5 g/dL (6.4-8.2)
[2019-03-30] MEDS ORDERED: Oxycodone HCl20 M1 PO (16:25)
== END 2019-03-30 17:13 | disposition home or self-care (01) ==
LOC: ER 14:40
PROVIDERS: Emergency Medicine
DX: L89.90 Pressure ulcer of unspecified site, unspecified stage (principal); E87.6 Hypokalemia; D64.9 Anemia, unspecified; F17.210 Nicotine dependence, cigarettes, uncomplicated; Z79.899 Other long term (current) drug therapy
CPT/HCPCS: 80053; 85025; 99283

== ENCOUNTER 2019-04-07 00:25 | Day surgery (SDC) | payer OTHER | END 2019-04-07 22:42 | disposition home or self-care (01) | LOC: WOUND 00:25 | DX: L89.313 Pressure ulcer of right buttock, stage 3 (principal); L89.152 Pressure ulcer of sacral region, stage 2; J44.9 Chronic obstructive pulmonary disease, unspecified; E78.5 Hyperlipidemia, unspecified; G82.20 Paraplegia, unspecified; Z87.891 Personal history of nicotine dependence; Z79.899 Other long term (current) drug therapy ==

== ENCOUNTER 2019-04-14 14:23 | Day surgery (SDC) | payer OTHER | END 2019-04-14 23:01 | disposition home or self-care (01) | LOC: WOUND 14:23 | DX: L89.313 Pressure ulcer of right buttock, stage 3 (principal); L89.152 Pressure ulcer of sacral region, stage 2; G82.20 Paraplegia, unspecified; J44.9 Chronic obstructive pulmonary disease, unspecified; G62.9 Polyneuropathy, unspecified; E78.5 Hyperlipidemia, unspecified; R50.9 Fever, unspecified; Z87.891 Personal history of nicotine dependence ==

== ENCOUNTER 2019-04-21 14:19 | Day surgery (SDC) | payer OTHER | END 2019-04-21 23:00 | disposition home or self-care (01) | LOC: WOUND 14:19 | DX: L89.313 Pressure ulcer of right buttock, stage 3 (principal); L89.152 Pressure ulcer of sacral region, stage 2; J44.9 Chronic obstructive pulmonary disease, unspecified; E78.5 Hyperlipidemia, unspecified; Z87.891 Personal history of nicotine dependence; Z79.899 Other long term (current) drug therapy ==

== ENCOUNTER 2019-05-05 14:34 | Day surgery (SDC) | payer OTHER | END 2019-05-05 23:32 | disposition home or self-care (01) | LOC: WOUND 14:34 | DX: I96 Gangrene, not elsewhere classified (principal); L89.324 Pressure ulcer of left buttock, stage 4; L89.892 Pressure ulcer of other site, stage 2; L89.312 Pressure ulcer of right buttock, stage 2; G82.20 Paraplegia, unspecified; G62.9 Polyneuropathy, unspecified; J44.9 Chronic obstructive pulmonary disease, unspecified; B19.20 Unspecified viral hepatitis C without hepatic coma; E78.5 Hyperlipidemia, unspecified; D64.9 Anemia, unspecified; F41.8 Other specified anxiety disorders; H26.9 Unspecified cataract; Z87.891 Personal history of nicotine dependence; Z79.899 Other long term (current) drug therapy ==

== ENCOUNTER 2019-05-19 14:02 | Day surgery (SDC) | payer OTHER | END 2019-05-19 22:34 | disposition home or self-care (01) | LOC: WOUND 14:02 | DX: I96 Gangrene, not elsewhere classified (principal); L89.324 Pressure ulcer of left buttock, stage 4; L89.312 Pressure ulcer of right buttock, stage 2; L89.892 Pressure ulcer of other site, stage 2; G62.9 Polyneuropathy, unspecified; J44.9 Chronic obstructive pulmonary disease, unspecified; E78.5 Hyperlipidemia, unspecified; F41.8 Other specified anxiety disorders; D64.9 Anemia, unspecified; H26.9 Unspecified cataract; G82.20 Paraplegia, unspecified; Z87.891 Personal history of nicotine dependence; Z79.899 Other long term (current) drug therapy ==

== ENCOUNTER 2019-06-02 00:15 | Day surgery (SDC) | payer OTHER | END 2019-06-02 22:59 | disposition home or self-care (01) | LOC: WOUND 00:15 | DX: L89.313 Pressure ulcer of right buttock, stage 3 (principal); L89.152 Pressure ulcer of sacral region, stage 2; J44.9 Chronic obstructive pulmonary disease, unspecified; G82.20 Paraplegia, unspecified; Z87.891 Personal history of nicotine dependence; Z79.899 Other long term (current) drug therapy | CPT/HCPCS: G0463 ==

== ENCOUNTER → 2019-06-06 | Outpatient (CLI) | payer OTHER ==
[2019-06-06 16:30] LABS: Albumin, Blood 2.3 g/dL (3.4-5.0); Prealbumin, Blood 8.4 mg/dL (20.0-40.0)
== END | disposition home or self-care (01) ==
LOC: LAB HH 14:10
PROVIDERS: Surgery
DX: L89.324 Pressure ulcer of left buttock, stage 4 (principal); L89.153 Pressure ulcer of sacral region, stage 3
CPT/HCPCS: 82040; 84134

== ENCOUNTER 2019-06-16 00:21 | Day surgery (SDC) | payer OTHER | END 2019-06-16 22:52 | disposition home or self-care (01) | LOC: WOUND 00:21 | DX: L89.313 Pressure ulcer of right buttock, stage 3 (principal); L89.152 Pressure ulcer of sacral region, stage 2; J44.9 Chronic obstructive pulmonary disease, unspecified; L89.323 Pressure ulcer of left buttock, stage 3; Z87.891 Personal history of nicotine dependence ==

== ENCOUNTER 2019-07-10 14:43 | Inpatient (IN) | payer OTHER ==
[~2019-07-10] VITALS: Ht 170.2 cm; Wt 68.4 kg
[~2019-07-10 14:43] MED LIST changes: -ALPR.25 PO
[2019-07-10 15:03] LABS: BASOPHILS ABSOLUTE AUTO 0.04 K/mm3 (0.00-0.23); BASOPHILS PERCENT AUTO 0 % (0-2); EOSINOPHILS ABSOLUTE AUTO 0.48 K/mm3 (0.00-0.68); EOSINOPHILS PERCENT AUTO 4 % (0-6); Hematocrit 34.3 % (37.0-53.0); Hemoglobin 10.4 g/dL (13.5-17.5); IMMATURE GRAN ABSOLUTE AUTO 0.05 K/mm3 (0.00-0.10); IMMATURE GRAN PERCENT AUTO 0 % (0-1); LYMPHOCYTES ABSOLUTE AUTO 2.97 K/mm3 (0.84-5.20); LYMPHOCYTES PERCENT AUTO 26 % (21-46); MONOCYTES ABSOLUTE AUTO 0.82 K/mm3 (0.16-1.47); MONOCYTES PERCENT AUTO 7 % (4-13); Mean Corpuscular HGB 25.2 pg (26.0-34.0); Mean Corpuscular HGB Conc 30.3 g/dL (31.5-36.5); Mean Corpuscular Volume 83 fL (80-100); Mean Platelet Volume 9.4 fL (9.1-12.4); NEUTROPHILS ABSOLUTE AUTO 7.12 K/mm3 (1.96-9.15); NEUTROPHILS PERCENT AUTO 62 % (41-73); Platelet Count 382 K/mm3 (150-400); RDW Coefficient Variation 16.9 % (11.7-14.2); RDW Standard Deviation 51.5 fL (35.1-46.3); Red Blood Cell Count 4.13 M/mm3 (4.30-5.90); White Blood Cell Count 11.48 K/mm3 (4.00-11.30)
[2019-07-10 15:13] LABS: Appearance, Urine Hazy (Clear); Bilirubin, Urine Neg (Neg); Blood, Urine 4+ (Neg); Color, Urine Yellow (P-Yellow); Glucose Qualitative, Urine Neg (Neg); Ketones, Urine Neg (Neg); Leukocyte Esterase, Urine 3+ (Neg); Nitrite, Urine Pos (Neg); Protein, Urine 2+ (Neg); Urobilinogen, Urine NORM (Normal)
[2019-07-10 15:16] LABS: International Normalized Ratio 1.04; Prothrombin Time Results 11.1 Sec (9.7-11.5)
[2019-07-10 15:22] LABS: Acetaminophen, Random <2.0 ug/mL (10.0-30.0); Alanine Aminotransfer (ALT/SGP 10 U/L (12-78); Albumin, Blood 2.1 g/dL (3.4-5.0); Albumin/Globulin Ratio 0.5 (0.8-1.8); Alk Phos 66 U/L (50-136); Anion Gap 4 mmol/L (6-16); Aspartate Aminotrans (AST/SGOT 8 U/L (12-37); Bilirubin, Total 0.2 mg/dL (0.1-1.0); Blood Urea Nitrogen 7 mg/dL (8-24); Bun/Creatinine Ratio 12.8 (12.0-20.0); CO2, Blood 30 mmol/L (21-32); Calcium, Blood 8.1 mg/dL (8.5-10.1); Chloride, Blood 108 mmol/L (98-108); Creatinine, Blood 0.55 mg/dL (0.60-1.20); Ethanol (Alcohol), Blood, Med <3 mg/dL; Globulin, Blood 4.2 g/dL (2.2-4.0); Glomerular Filtration Rate >60 (60-); Glucose, Blood 80 mg/dL (70-99); Potassium, Blood 3.9 mmol/L (3.5-5.5); Salicylate <1.7 mg/dL (2.8-20.0); Sodium, Blood 142 mmol/L (136-145); Total Protein, Blood 6.3 g/dL (6.4-8.2)
[2019-07-10 15:35] LABS: White Blood Cells, Urine 50-100 /hpf (0-5)
[2019-07-10 15:36] LABS: Bacteria Many /hpf; Red Blood Cells, Urine 25-50 /hpf (0-2); Squamous Epithelial Cells Many /hpf (Few)
[2019-07-10 15:51] LABS: U Amphetamine Screen Not Detected; U Barbituate Screen Not Detected; U Benzodiazapine Screen DETECTED; U Buprenorphine Screen DETECTED; U Cannabinoids Screen Not Detected; U Cocaine Screen Not Detected; U Methadone Screen Not Detected; U Methamphetamine Screen Not Detected; U Opiates Screen Not Detected; U Oxycodone Screen DETECTED; U Phencyclidine Screen Not Detected; U Propoxyphene Screen Not Detected
[2019-07-10] MEDS ORDERED: ALPR.5 PO ×2 (16:59→18:15)
[2019-07-10] MEDS ORDERED: GABA800 PO (18:13)
[2019-07-10] MEDS ORDERED: Macrobid 100 M100 MG PO (18:13)
[2019-07-10] MEDS ORDERED: Bactrim 400-801 EACH PO (18:13)
[2019-07-10] MEDS ORDERED: Paxil20 MG PO (18:14)
[2019-07-10] MEDS ORDERED: OMEPRAZOLE PO (18:14)
[2019-07-10] MEDS ORDERED: TRAZ100 PO (18:14)
[2019-07-10] MEDS ORDERED: Oxycodone HCl20 M1 PO (18:14)
[2019-07-10] MEDS ORDERED: BENADRYL25 M1 PO (18:14)
[2019-07-11 05:16] LABS: BASOPHILS ABSOLUTE AUTO 0.03 K/mm3 (0.00-0.23); BASOPHILS PERCENT AUTO 0 % (0-2); EOSINOPHILS PERCENT AUTO 3 % (0-6); Hematocrit 34.5 % (37.0-53.0); Hemoglobin 10.4 g/dL (13.5-17.5); IMMATURE GRAN ABSOLUTE AUTO 0.04 K/mm3 (0.00-0.10); IMMATURE GRAN PERCENT AUTO 0 % (0-1); LYMPHOCYTES ABSOLUTE AUTO 1.99 K/mm3 (0.84-5.20); LYMPHOCYTES PERCENT AUTO 22 % (21-46); MONOCYTES ABSOLUTE AUTO 0.51 K/mm3 (0.16-1.47); MONOCYTES PERCENT AUTO 6 % (4-13); Mean Corpuscular HGB 25.2 pg (26.0-34.0); Mean Corpuscular HGB Conc 30.1 g/dL (31.5-36.5); Mean Corpuscular Volume 84 fL (80-100); Mean Platelet Volume 9.7 fL (9.1-12.4); NEUTROPHILS ABSOLUTE AUTO 6.18 K/mm3 (1.96-9.15); NEUTROPHILS PERCENT AUTO 68 % (41-73); Platelet Count 355 K/mm3 (150-400); RDW Coefficient Variation 16.6 % (11.7-14.2); RDW Standard Deviation 50.7 fL (35.1-46.3); Red Blood Cell Count 4.13 M/mm3 (4.30-5.90); White Blood Cell Count 9.05 K/mm3 (4.00-11.30)
[2019-07-11 05:34] LABS: Anion Gap 7 mmol/L (6-16); Blood Urea Nitrogen 6 mg/dL (8-24); Bun/Creatinine Ratio 14.5 (12.0-20.0); CO2, Blood 26 mmol/L (21-32); Calcium, Blood 8.1 mg/dL (8.5-10.1); Chloride, Blood 110 mmol/L (98-108); Creatinine, Blood 0.41 mg/dL (0.60-1.20); Glomerular Filtration Rate >60 (60-); Glucose, Blood 64 mg/dL (70-99); Potassium, Blood 3.6 mmol/L (3.5-5.5); Sodium, Blood 143 mmol/L (136-145)
--- NOTE | 2019-07-11 05:41 | NUR ---
END OF SHIFT SUMMARY PT TO UNTIN FROM ED, MOLANI, DOESN'T REALLY RESPOND TO VERBAL/PHYSICAL STIMULI EXCEPT MOANING. DOES APPEAR TO TRACK NURSE MOVEMENTS WHEN EYES OPENED BY RN, PUPILS SLUGGISH. THE NIGT HAS PROGRSSED PT HAS BECOME MORE ALERT, IS ABLE TO ANWERA FEW QUESTIONS APROPRIATELY SUCH PLACE AND NAME BUT IS SILL OTHERWISE VERY SOMNOLENT AND NOT ANSWERING ALL QUESTIONS. PT IS PARAPLEGIC AT [facility]. [id number] WITH MANY ULCERS UPON ADMISSION. AL OF THESE WERE CLEANED AND REDRESSED. WHEN PICTURES WERE GOING TO BE TKEN, CAMERA BATTERY NOTED TO E , WILL ATTEMPT TO PLACE THESEIN CHART. NEW COLOSTOMY BAG PRESENT. NEW SUPRAPUBIC CATH IN PLACE AND PATENT. PT BEING TURNED BY STAFF. Q2 NEURO CHECKLS IN LACE. PT NPO. WILL CONTINUE TO MONITOR UNTL SHIFT CHAGE. VSS.
--- NOTE | 2019-07-11 07:09 | NUR ---
ADMT ASSESMENT IT W NOTED THT TAYE RN ACCIDENTALLY COMLETED A SHIFT ASSESMENT INSTEAD OF THE ADMIT ASSESMENT. SPOKE WITH STATISTICAL ENGINEER, AND DUE TO PT'S MENTALSTATUSAND INABILIT TO ELP COMLETLY FILL OUT THE ADMIT ASSESMENT INFO, DECISION MADE TO DELAY ADMIT ASSESMENT UNTIL DAY SHIF WHEN PT WILL BE MORE APT TO ANSWER QUESTIONS THE EFFECTSOF THE MES OVERDOSD ON CONTINETO WEAR OFF.
--- NOTE | 2019-07-11 09:00 | NUR ---
Recieved report from Noc Rn. Patient lying on left side as he states more comfortable for him. He is awake and alert and able to communicate his needs. We discussed reason for admission and he states that tis is not intensional and must of grabbed wrong bottle in dark. . He is currently on 4L NC and sats mid 90%'s. He has 20ga LAC FS and dressing intact and site WNL's and is infusing NS at 125ml/hr. He has extensive wounds see chart and pictures. He has Ostomy changed on Noc shift and supra pubic cath draining to gravity yellow urine.
--- NOTE | 2019-07-11 13:11 | NUR ---
Dr Rutledge by and discharged patient. Arranged transportation. He was diconnected from 4L O2 and sats low 90's on RA.. He had no close and dressed in pants and robe from hospital. He was able to assist when change. Stoppped NS as well. We are trying to arrange someone to meet him at the house. He is currenbtly resting awaiting for someone.
--- NOTE | 2019-07-11 14:36 | NUR ---
Patient has someone meeting him at home and called for ride and they have showed up. Both IV's were pulled intact and site WNL's. [facility]
== END 2019-07-11 14:32 | disposition home health service (06) | DRG 917 ==
LOC: ER 14:43 → PCU 17:05 → ERHOLD 17:05 → PCU 21:53
PROVIDERS: Emergency Medicine; ADMIT Internal Medicine
DX: T50.901A Poisoning by unspecified drugs, medicaments and biological substances, accidental (unintentional), initial encounter (principal); G93.41 Metabolic encephalopathy; G82.20 Paraplegia, unspecified; M79.7 Fibromyalgia; M19.90 Unspecified osteoarthritis, unspecified site; D64.9 Anemia, unspecified
CPT/HCPCS: 36415; 74176; 80048; 80053; 81001; 82947; 83605; 84484; 85025; 85610; 87040; 87086; 93005; 93010; G0480; J1650; J3370; J7030

== ENCOUNTER 2019-07-17 01:12 | Day surgery (SDC) | payer OTHER ==
[~2019-07-17 01:12] MED LIST changes: +ALPR.5 PO; +BENADRYL25 M1 PO; +Bactrim 400-801 EACH PO; +GABA800 PO; +Macrobid 100 M100 MG PO; +OMEPRAZOLE PO; +Paxil20 MG PO
== END 2019-07-17 23:36 | disposition home or self-care (01) ==
LOC: WOUND 01:12
DX: L89.313 Pressure ulcer of right buttock, stage 3 (principal); L89.323 Pressure ulcer of left buttock, stage 3; L89.152 Pressure ulcer of sacral region, stage 2

== ENCOUNTER 2019-07-21 00:35 | Day surgery (SDC) | payer OTHER | END 2019-07-21 12:00 | disposition home or self-care (01) | LOC: WOUND 00:35 | DX: L89.323 Pressure ulcer of left buttock, stage 3 (principal); L89.313 Pressure ulcer of right buttock, stage 3; L89.152 Pressure ulcer of sacral region, stage 2; J44.9 Chronic obstructive pulmonary disease, unspecified; F17.200 Nicotine dependence, unspecified, uncomplicated ==

== ENCOUNTER 2019-08-04 00:20 | Day surgery (SDC) | payer OTHER, MEDICARE | END 2019-08-04 22:49 | disposition home or self-care (01) | LOC: WOUND 00:20 | DX: L89.324 Pressure ulcer of left buttock, stage 4 (principal); L89.313 Pressure ulcer of right buttock, stage 3; L89.152 Pressure ulcer of sacral region, stage 2; Z72.0 Tobacco use ==

== ENCOUNTER 2019-09-01 00:09 | Day surgery (SDC) | payer OTHER ==
[~2019-09-01 00:09] MED LIST changes: +ERTAPENEM1 GM IV; +FERSU300 PO; -GABA800 PO; +NEURONTIN600 MG PO; +OMEP20ER PO; -OMEPRAZOLE PO; +OXYC10TA19 PO; +Senna S Tablet1 EACH PO
== END 2019-09-01 22:55 | disposition home or self-care (01) ==
LOC: WOUND 00:09
DX: L89.323 Pressure ulcer of left buttock, stage 3 (principal); L89.313 Pressure ulcer of right buttock, stage 3; L89.154 Pressure ulcer of sacral region, stage 4

== ENCOUNTER 2019-09-08 00:19 | Day surgery (SDC) | payer OTHER | END 2019-09-08 22:50 | disposition home or self-care (01) | LOC: WOUND 00:19 | DX: L89.323 Pressure ulcer of left buttock, stage 3 (principal); L89.313 Pressure ulcer of right buttock, stage 3; L89.154 Pressure ulcer of sacral region, stage 4; F17.200 Nicotine dependence, unspecified, uncomplicated ==

== ENCOUNTER 2019-09-15 00:22 | Day surgery (SDC) | payer OTHER, MEDICARE | END 2019-09-15 22:37 | disposition home or self-care (01) | LOC: WOUND | DX: L89.154 Pressure ulcer of sacral region, stage 4 (principal); L89.324 Pressure ulcer of left buttock, stage 4; L89.313 Pressure ulcer of right buttock, stage 3; J44.9 Chronic obstructive pulmonary disease, unspecified ==

== ENCOUNTER 2019-09-22 00:14 | Day surgery (SDC) | payer OTHER, MEDICARE | END 2019-09-22 22:36 | disposition home or self-care (01) | LOC: WOUND 00:14 | DX: L89.323 Pressure ulcer of left buttock, stage 3 (principal); L89.313 Pressure ulcer of right buttock, stage 3; L89.154 Pressure ulcer of sacral region, stage 4; J44.9 Chronic obstructive pulmonary disease, unspecified; F17.200 Nicotine dependence, unspecified, uncomplicated ==

== ENCOUNTER 2019-10-13 00:12 | Day surgery (SDC) | payer OTHER | END 2019-10-13 22:51 | disposition home or self-care (01) | LOC: WOUND 00:12 | DX: L89.323 Pressure ulcer of left buttock, stage 3 (principal); L89.154 Pressure ulcer of sacral region, stage 4; F17.200 Nicotine dependence, unspecified, uncomplicated; J44.9 Chronic obstructive pulmonary disease, unspecified ==

== ENCOUNTER → 2019-10-13 | Outpatient (CLI) | payer OTHER ==
[2019-10-16 15:08] LABS: COTININE Negative ng/mL (Cutoff=300)
== END | disposition home or self-care (01) ==
LOC: EDSTATUS 11:28 → LAB UVN 21:30
PROVIDERS: Nurse Practitioner Family
DX: L89.323 Pressure ulcer of left buttock, stage 3 (principal)

== ENCOUNTER 2019-10-27 00:14 | Day surgery (SDC) | payer OTHER | END 2019-10-27 23:01 | disposition home or self-care (01) | LOC: WOUND 00:14 | DX: L89.323 Pressure ulcer of left buttock, stage 3 (principal); L89.154 Pressure ulcer of sacral region, stage 4; J44.9 Chronic obstructive pulmonary disease, unspecified; E78.5 Hyperlipidemia, unspecified; F17.200 Nicotine dependence, unspecified, uncomplicated; Z79.899 Other long term (current) drug therapy ==

== ENCOUNTER → 2019-10-28 | Outpatient (CLI) | payer OTHER | END | disposition home or self-care (01) | LOC: LAB UVN 10:46 → EDSTATUS 11:23 | DX: L89.154 Pressure ulcer of sacral region, stage 4 (principal); L89.324 Pressure ulcer of left buttock, stage 4; L89.313 Pressure ulcer of right buttock, stage 3; M46.28 Osteomyelitis of vertebra, sacral and sacrococcygeal region; Z16.12 Extended spectrum beta lactamase (ESBL) resistance | CPT/HCPCS: 84134; 84630 ==

== ENCOUNTER 2019-11-03 00:30 | Day surgery (SDC) | payer OTHER | END 2019-11-03 22:36 | disposition home or self-care (01) | LOC: WOUND 00:30 | DX: L89.323 Pressure ulcer of left buttock, stage 3 (principal); L89.154 Pressure ulcer of sacral region, stage 4 ==

== ENCOUNTER 2019-11-10 00:25 | Day surgery (SDC) | payer OTHER | END 2019-11-10 23:13 | disposition home or self-care (01) | LOC: WOUND 00:25 | DX: L89.323 Pressure ulcer of left buttock, stage 3 (principal); L89.154 Pressure ulcer of sacral region, stage 4; J44.9 Chronic obstructive pulmonary disease, unspecified; E78.5 Hyperlipidemia, unspecified; F17.200 Nicotine dependence, unspecified, uncomplicated; G62.9 Polyneuropathy, unspecified; Z79.891 Long term (current) use of opiate analgesic; G89.29 Other chronic pain; Z79.899 Other long term (current) drug therapy ==

== ENCOUNTER 2019-11-22 17:26 | Emergency (ER) | payer OTHER ==
[~2019-11-22] VITALS: Ht 172.7 cm; Wt 72.6 kg
[2019-11-29] MEDS ORDERED: CEFD300 PO (14:39)
[2019-11-29] MEDS ORDERED: [UNRECOGNIZED DRUG - REMARK] (14:40)
== END 2019-11-22 20:35 | disposition home or self-care (01) ==
LOC: ER 17:26
DX: L89.329 Pressure ulcer of left buttock, unspecified stage (principal); Z79.899 Other long term (current) drug therapy; J44.9 Chronic obstructive pulmonary disease, unspecified; Z86.19 Personal history of other infectious and parasitic diseases; F17.210 Nicotine dependence, cigarettes, uncomplicated
CPT/HCPCS: 99283

== ENCOUNTER 2019-11-24 00:07 | Day surgery (SDC) | payer OTHER ==
[2019-11-29] MEDS ORDERED: CEFD300 PO (14:39)
[2019-11-29] MEDS ORDERED: [UNRECOGNIZED DRUG - REMARK] (14:40)
== END 2019-11-24 22:39 | disposition home or self-care (01) ==
LOC: WOUND 00:07
DX: L89.323 Pressure ulcer of left buttock, stage 3 (principal); L89.154 Pressure ulcer of sacral region, stage 4

== ENCOUNTER → 2019-12-23 | Outpatient (CLI) | payer OTHER ==
[~2019-12-23] MED LIST changes: +CEFD300 PO; +[UNRECOGNIZED DRUG - REMARK]
== END | disposition home or self-care (01) ==
LOC: LAB 18:14 → LAB SHORT 18:14
DX: N39.0 Urinary tract infection, site not specified (principal)
CPT/HCPCS: 87086

== ENCOUNTER 2020-01-12 00:17 | Day surgery (SDC) | payer OTHER | END 2020-01-12 23:12 | disposition home or self-care (01) | LOC: WOUND 00:17 | DX: L89.323 Pressure ulcer of left buttock, stage 3 (principal); S31.30XD Unspecified open wound of scrotum and testes, subsequent encounter; L89.154 Pressure ulcer of sacral region, stage 4; L89.312 Pressure ulcer of right buttock, stage 2; R77.0 Abnormality of albumin; J44.9 Chronic obstructive pulmonary disease, unspecified ==

== ENCOUNTER 2020-02-09 00:46 | Day surgery (SDC) | payer OTHER | END 2020-02-09 22:41 | disposition home or self-care (01) | LOC: WOUND 00:46 | DX: L89.323 Pressure ulcer of left buttock, stage 3 (principal); S31.30XD Unspecified open wound of scrotum and testes, subsequent encounter; L89.154 Pressure ulcer of sacral region, stage 4; L89.312 Pressure ulcer of right buttock, stage 2; R77.0 Abnormality of albumin; F17.200 Nicotine dependence, unspecified, uncomplicated; Z79.899 Other long term (current) drug therapy | CPT/HCPCS: G0463 ==

== ENCOUNTER 2020-02-16 00:15 | Day surgery (SDC) | payer OTHER | END 2020-02-16 22:38 | disposition home or self-care (01) | LOC: WOUND 00:15 | DX: L89.323 Pressure ulcer of left buttock, stage 3 (principal); S31.30XD Unspecified open wound of scrotum and testes, subsequent encounter; F17.200 Nicotine dependence, unspecified, uncomplicated; L89.154 Pressure ulcer of sacral region, stage 4; L89.312 Pressure ulcer of right buttock, stage 2; R77.0 Abnormality of albumin; Z79.899 Other long term (current) drug therapy | CPT/HCPCS: G0463 ==

== ENCOUNTER → 2020-02-22 | Outpatient (CLI) | payer OTHER ==
[2020-02-22 18:25] LABS: Source, Urine Urostomy Bag
[2020-02-22 19:25] LABS: Bilirubin, Urine Neg (Neg); Blood, Urine 4+ (Neg); Glucose Qualitative, Urine Neg (Neg); Ketones, Urine Neg (Neg); Leukocyte Esterase, Urine 3+ (Neg); Nitrite, Urine Pos (Neg); Protein, Urine 2+ (Neg); Urobilinogen, Urine NORM (Normal)
[2020-02-22 20:07] LABS: Appearance, Urine Cloudy (Clear); Color, Urine Yellow (P-Yellow)
[2020-02-22 20:09] LABS: Amorphous Light (0-Heavy); Bacteria Many /hpf; Red Blood Cells, Urine Not Seen /hpf (0-2); Squamous Epithelial Cells Not Seen /hpf (Few)
[2020-02-22 20:10] LABS: Triple Phosphate Crystals Mod /hpf
== END | disposition home or self-care (01) ==
LOC: LAB 18:22 → LAB SHORT 18:22
PROVIDERS: Nurse Practitioner Family
DX: N39.0 Urinary tract infection, site not specified (principal); R73.9 Hyperglycemia, unspecified
CPT/HCPCS: 81001; 87086

== ENCOUNTER 2020-03-08 00:50 | Day surgery (SDC) | payer OTHER | END 2020-03-08 22:44 | disposition home or self-care (01) | LOC: WOUND 00:50 | DX: I96 Gangrene, not elsewhere classified (principal); L89.324 Pressure ulcer of left buttock, stage 4; L89.312 Pressure ulcer of right buttock, stage 2; G62.9 Polyneuropathy, unspecified; J44.9 Chronic obstructive pulmonary disease, unspecified; E78.5 Hyperlipidemia, unspecified; G82.20 Paraplegia, unspecified; B19.20 Unspecified viral hepatitis C without hepatic coma; N31.9 Neuromuscular dysfunction of bladder, unspecified; F11.20 Opioid dependence, uncomplicated; G89.29 Other chronic pain; F17.200 Nicotine dependence, unspecified, uncomplicated; H26.9 Unspecified cataract; D64.9 Anemia, unspecified; F41.8 Other specified anxiety disorders; Z51.5 Encounter for palliative care; Z79.899 Other long term (current) drug therapy ==

== ENCOUNTER 2020-03-22 02:10 | Day surgery (SDC) | payer OTHER | END 2020-03-22 23:09 | disposition home or self-care (01) | LOC: WOUND 02:10 | DX: I96 Gangrene, not elsewhere classified (principal); L89.324 Pressure ulcer of left buttock, stage 4; L89.312 Pressure ulcer of right buttock, stage 2; G82.20 Paraplegia, unspecified; G62.9 Polyneuropathy, unspecified; J44.9 Chronic obstructive pulmonary disease, unspecified; E78.5 Hyperlipidemia, unspecified; N31.9 Neuromuscular dysfunction of bladder, unspecified; G89.29 Other chronic pain; F17.200 Nicotine dependence, unspecified, uncomplicated; F11.20 Opioid dependence, uncomplicated; R77.0 Abnormality of albumin; H26.9 Unspecified cataract; D64.9 Anemia, unspecified; B19.20 Unspecified viral hepatitis C without hepatic coma; F41.8 Other specified anxiety disorders; Z79.899 Other long term (current) drug therapy; Z51.5 Encounter for palliative care ==

== ENCOUNTER → 2020-03-24 | Outpatient (CLI) | payer OTHER ==
[2020-03-24 19:08] LABS: C-REACTIVE PROTEIN, EXT RANGE 4.58 mg/dL (0.000-0.300)
[2020-03-24 19:13] LABS: Albumin, Blood 2.6 g/dL (3.4-5.0); Prealbumin, Blood 13.9 mg/dL (20.0-40.0)
== END | disposition home or self-care (01) ==
LOC: LAB SHORT 13:30 → LAB 13:30
PROVIDERS: Nurse Practitioner Family
DX: L89.154 Pressure ulcer of sacral region, stage 4 (principal); R77.0 Abnormality of albumin
CPT/HCPCS: 82040; 84134; 85651; 86140

== ENCOUNTER 2020-04-05 00:17 | Day surgery (SDC) | payer OTHER | END 2020-04-05 23:05 | disposition home or self-care (01) | LOC: WOUND 00:17 | DX: L89.323 Pressure ulcer of left buttock, stage 3 (principal); L89.154 Pressure ulcer of sacral region, stage 4; L89.312 Pressure ulcer of right buttock, stage 2; F17.200 Nicotine dependence, unspecified, uncomplicated; R77.0 Abnormality of albumin; J44.9 Chronic obstructive pulmonary disease, unspecified; E78.5 Hyperlipidemia, unspecified; Z79.899 Other long term (current) drug therapy ==

== ENCOUNTER 2020-04-21 00:30 | Day surgery (SDC) | payer OTHER | END 2020-04-21 23:26 | disposition home or self-care (01) | LOC: WOUND 00:30 | DX: L89.323 Pressure ulcer of left buttock, stage 3 (principal); L89.154 Pressure ulcer of sacral region, stage 4; F17.200 Nicotine dependence, unspecified, uncomplicated; L89.312 Pressure ulcer of right buttock, stage 2; R77.0 Abnormality of albumin; J44.9 Chronic obstructive pulmonary disease, unspecified; E78.5 Hyperlipidemia, unspecified; Z79.899 Other long term (current) drug therapy ==

== ENCOUNTER 2020-05-05 00:26 | Day surgery (SDC) | payer OTHER | END 2020-05-05 23:04 | disposition home or self-care (01) | LOC: WOUND 00:26 | DX: I96 Gangrene, not elsewhere classified (principal); L89.324 Pressure ulcer of left buttock, stage 4; G82.20 Paraplegia, unspecified; R77.0 Abnormality of albumin; J44.9 Chronic obstructive pulmonary disease, unspecified; E78.5 Hyperlipidemia, unspecified; N31.9 Neuromuscular dysfunction of bladder, unspecified; G89.29 Other chronic pain; F11.20 Opioid dependence, uncomplicated; F17.200 Nicotine dependence, unspecified, uncomplicated; H26.9 Unspecified cataract; D64.9 Anemia, unspecified; B19.20 Unspecified viral hepatitis C without hepatic coma; F41.8 Other specified anxiety disorders; Z79.899 Other long term (current) drug therapy ==

== ENCOUNTER 2020-05-26 00:27 | Day surgery (SDC) | payer OTHER ==
[~2020-05-26 00:27] MED LIST changes: +GABA800 PO; -NEURONTIN600 MG PO; -OXYC10TA19 PO; +ROXICODONE15 MG PO
== END 2020-05-26 23:34 | disposition home or self-care (01) ==
LOC: WOUND 00:27
DX: L89.323 Pressure ulcer of left buttock, stage 3 (principal); L89.154 Pressure ulcer of sacral region, stage 4; L89.312 Pressure ulcer of right buttock, stage 2; R77.0 Abnormality of albumin; J44.9 Chronic obstructive pulmonary disease, unspecified; G82.20 Paraplegia, unspecified; N31.9 Neuromuscular dysfunction of bladder, unspecified; G62.9 Polyneuropathy, unspecified; G89.4 Chronic pain syndrome; F11.20 Opioid dependence, uncomplicated; E78.5 Hyperlipidemia, unspecified; Z72.0 Tobacco use; B19.20 Unspecified viral hepatitis C without hepatic coma
CPT/HCPCS: A9270

== ENCOUNTER 2020-06-16 00:30 | Day surgery (SDC) | payer OTHER | END 2020-06-16 23:32 | disposition home or self-care (01) | LOC: WOUND 00:30 | DX: L89.154 Pressure ulcer of sacral region, stage 4 (principal); L89.323 Pressure ulcer of left buttock, stage 3; L89.312 Pressure ulcer of right buttock, stage 2; J44.9 Chronic obstructive pulmonary disease, unspecified; R77.0 Abnormality of albumin; Z72.0 Tobacco use | CPT/HCPCS: A9270 ==

== ENCOUNTER 2020-06-30 00:38 | Day surgery (SDC) | payer OTHER | END 2020-06-30 22:49 | disposition home or self-care (01) | LOC: WOUND 00:38 | DX: L89.323 Pressure ulcer of left buttock, stage 3 (principal); L89.154 Pressure ulcer of sacral region, stage 4; L89.312 Pressure ulcer of right buttock, stage 2; J44.9 Chronic obstructive pulmonary disease, unspecified; E78.5 Hyperlipidemia, unspecified; G62.9 Polyneuropathy, unspecified; G89.29 Other chronic pain; R77.0 Abnormality of albumin; G82.20 Paraplegia, unspecified; F17.200 Nicotine dependence, unspecified, uncomplicated | CPT/HCPCS: A9270 ==

== ENCOUNTER 2020-07-14 00:19 | Day surgery (SDC) | payer OTHER | END 2020-07-14 23:44 | disposition home or self-care (01) | LOC: WOUND 00:19 | DX: L89.324 Pressure ulcer of left buttock, stage 4 (principal); Z72.0 Tobacco use; R77.0 Abnormality of albumin | CPT/HCPCS: A9270 ==

== ENCOUNTER 2020-07-17 22:51 | Emergency (ER) | payer OTHER ==
[~2020-07-17] VITALS: Ht 170.2 cm; Wt 68.0 kg
[2020-07-17 23:21] LABS: Source, Urine Catheter
[2020-07-17 23:24] LABS: Bilirubin, Urine Neg (Neg); Blood, Urine 5+ (Neg); Glucose Qualitative, Urine Neg (Neg); Ketones, Urine Neg (Neg); Leukocyte Esterase, Urine 2+ (Neg); Nitrite, Urine Neg (Neg); Protein, Urine 3+ (Neg); Specific Gravity, Urine 1.015 (1.003-1.022); Urobilinogen, Urine NORM (Normal)
[2020-07-17 23:53] LABS: Amorphous Mod (0-Heavy); Appearance, Urine Turbid (Clear); Bacteria Few /hpf; Color, Urine Red (P-Yellow); Red Blood Cells, Urine TNTC /hpf (0-2); Squamous Epithelial Cells Few /hpf (Few)
[2020-07-17 23:54] LABS: BASOPHILS ABSOLUTE AUTO 0.04 K/mm3 (0.00-0.23); BASOPHILS PERCENT AUTO 0 % (0-2); EOSINOPHILS ABSOLUTE AUTO 0.38 K/mm3 (0.00-0.68); EOSINOPHILS PERCENT AUTO 4 % (0-6); Hematocrit 45.2 % (37.0-53.0); IMMATURE GRAN ABSOLUTE AUTO 0.03 K/mm3 (0.00-0.10); IMMATURE GRAN PERCENT AUTO 0 % (0-1); LYMPHOCYTES ABSOLUTE AUTO 3.01 K/mm3 (0.84-5.20); LYMPHOCYTES PERCENT AUTO 31 % (21-46); MONOCYTES ABSOLUTE AUTO 0.73 K/mm3 (0.16-1.47); MONOCYTES PERCENT AUTO 7 % (4-13); Mean Corpuscular HGB 29.7 pg (26.0-34.0); Mean Corpuscular HGB Conc 33.2 g/dL (31.5-36.5); Mean Corpuscular Volume 90 fL (80-100); Mean Platelet Volume 10.2 fL (9.1-12.4); NEUTROPHILS ABSOLUTE AUTO 5.69 K/mm3 (1.96-9.15); NEUTROPHILS PERCENT AUTO 58 % (41-73); Platelet Count 252 K/mm3 (150-400); RDW Coefficient Variation 14.4 % (11.7-14.2); RDW Standard Deviation 47.7 fL (35.1-46.3); Red Blood Cell Count 5.05 M/mm3 (4.30-5.90); White Blood Cell Count 9.88 K/mm3 (4.00-11.30)
[2020-07-18 00:09] LABS: Alanine Aminotransfer (ALT/SGP 16 U/L (12-78); Albumin, Blood 2.8 g/dL (3.4-5.0); Albumin/Globulin Ratio 0.7 (0.8-1.8); Alk Phos 77 U/L (50-136); Anion Gap 5 mmol/L (6-16); Aspartate Aminotrans (AST/SGOT 13 U/L (12-37); Bilirubin, Total 0.1 mg/dL (0.1-1.0); Blood Urea Nitrogen 16 mg/dL (8-24); Bun/Creatinine Ratio 34.1 (12.0-20.0); CO2, Blood 28 mmol/L (21-32); Calcium, Blood 8.4 mg/dL (8.5-10.1); Chloride, Blood 108 mmol/L (98-108); Creatinine, Blood 0.47 mg/dL (0.60-1.20); Glomerular Filtration Rate >60 (60-); Glucose, Blood 124 mg/dL (70-99); Potassium, Blood 3.9 mmol/L (3.5-5.5); Sodium, Blood 141 mmol/L (136-145); Total Protein, Blood 6.8 g/dL (6.4-8.2)
[2020-07-18 00:18] LABS: International Normalized Ratio 1.02; Prothrombin Time Results 10.9 Sec (9.7-11.5)
[2020-07-18] MEDS ORDERED: Keflex500 MG PO (00:30)
[2020-07-19] MEDS ORDERED: MONT10T PO (15:22)
== END 2020-07-18 01:10 | disposition home or self-care (01) ==
LOC: ER 22:51
PROVIDERS: Emergency Medicine
DX: T83.198A Other mechanical complication of other urinary devices and implants, initial encounter (principal); R31.9 Hematuria, unspecified; F17.210 Nicotine dependence, cigarettes, uncomplicated; Z79.899 Other long term (current) drug therapy
CPT/HCPCS: 36415; 80053; 81001; 85025; 85610; 87077; 87086; 87186; 99283; A9270; C2627

== ENCOUNTER 2020-07-18 20:27 | Emergency (ER) | payer OTHER ==
[~2020-07-18] VITALS: Ht 170.2 cm; Wt 72.6 kg
[~2020-07-18 20:27] MED LIST changes: +Keflex500 MG PO
[2020-07-19] MEDS ORDERED: MONT10T PO (15:22)
== END 2020-07-18 22:47 | disposition home or self-care (01) ==
LOC: ER 20:27
DX: N39.0 Urinary tract infection, site not specified (principal)
CPT/HCPCS: 99283

== ENCOUNTER 2020-07-19 13:00 | Emergency (ER) | payer OTHER ==
[~2020-07-19] VITALS: Ht 170.2 cm; Wt 72.6 kg
[2020-07-19 15:04] LABS: BASOPHILS ABSOLUTE AUTO 0.03 K/mm3 (0.00-0.23); BASOPHILS PERCENT AUTO 0 % (0-2); EOSINOPHILS ABSOLUTE AUTO 0.21 K/mm3 (0.00-0.68); EOSINOPHILS PERCENT AUTO 2 % (0-6); Hematocrit 46.8 % (37.0-53.0); Hemoglobin 15.4 g/dL (13.5-17.5); IMMATURE GRAN ABSOLUTE AUTO 0.05 K/mm3 (0.00-0.10); IMMATURE GRAN PERCENT AUTO 1 % (0-1); LYMPHOCYTES ABSOLUTE AUTO 2.29 K/mm3 (0.84-5.20); LYMPHOCYTES PERCENT AUTO 22 % (21-46); MONOCYTES ABSOLUTE AUTO 0.64 K/mm3 (0.16-1.47); MONOCYTES PERCENT AUTO 6 % (4-13); Mean Corpuscular HGB 29.8 pg (26.0-34.0); Mean Corpuscular HGB Conc 32.9 g/dL (31.5-36.5); Mean Corpuscular Volume 91 fL (80-100); Mean Platelet Volume 10.7 fL (9.1-12.4); NEUTROPHILS PERCENT AUTO 69 % (41-73); Platelet Count 232 K/mm3 (150-400); RDW Coefficient Variation 14.4 % (11.7-14.2); RDW Standard Deviation 47.8 fL (35.1-46.3); Red Blood Cell Count 5.17 M/mm3 (4.30-5.90); White Blood Cell Count 10.42 K/mm3 (4.00-11.30)
[2020-07-19 15:13] LABS: Alanine Aminotransfer (ALT/SGP 16 U/L (12-78); Albumin, Blood 3.1 g/dL (3.4-5.0); Albumin/Globulin Ratio 0.7 (0.8-1.8); Alk Phos 81 U/L (50-136); Anion Gap 6 mmol/L (6-16); Aspartate Aminotrans (AST/SGOT 14 U/L (12-37); Bilirubin, Total 0.2 mg/dL (0.1-1.0); Blood Urea Nitrogen 10 mg/dL (8-24); Bun/Creatinine Ratio 22.4 (12.0-20.0); CO2, Blood 27 mmol/L (21-32); Calcium, Blood 8.7 mg/dL (8.5-10.1); Chloride, Blood 106 mmol/L (98-108); Creatinine, Blood 0.45 mg/dL (0.60-1.20); Globulin, Blood 4.2 g/dL (2.2-4.0); Glomerular Filtration Rate >60 (60-); Glucose, Blood 111 mg/dL (70-99); Potassium, Blood 3.6 mmol/L (3.5-5.5); Sodium, Blood 139 mmol/L (136-145); Total Protein, Blood 7.3 g/dL (6.4-8.2)
[2020-07-19] MEDS ORDERED: MONT10T PO (15:22)
[2020-07-19 16:22] LABS: Source, Urine Catheter
[2020-07-19 16:27] LABS: Appearance, Urine Clear (Clear); Bilirubin, Urine Neg (Neg); Blood, Urine Neg (Neg); Color, Urine Yellow (P-Yellow); Glucose Qualitative, Urine Neg (Neg); Ketones, Urine Neg (Neg); Leukocyte Esterase, Urine Neg (Neg); Nitrite, Urine Neg (Neg); Protein, Urine Neg (Neg); Specific Gravity, Urine 1.005 (1.003-1.022); Urobilinogen, Urine NORM (Normal)
== END 2020-07-19 19:33 | disposition short-term general hospital (02) ==
LOC: ER 13:00
PROVIDERS: Emergency Medicine
DX: N39.0 Urinary tract infection, site not specified (principal); R31.9 Hematuria, unspecified; J44.9 Chronic obstructive pulmonary disease, unspecified; Z79.899 Other long term (current) drug therapy
CPT/HCPCS: 36415; 51700; 71045; 74177; 80053; 81003; 83605; 83690; 85025; 87040; 93005; 93010; 96365-59; 96375-59; 99285-25; J0696; J3010; J7030; Q9967

== ENCOUNTER 2020-08-11 00:14 | Day surgery (SDC) | payer OTHER ==
[~2020-08-11 00:14] MED LIST changes: +MONT10T PO
== END 2020-08-11 23:34 | disposition home or self-care (01) ==
LOC: WOUND 00:14
DX: L89.323 Pressure ulcer of left buttock, stage 3 (principal); L89.154 Pressure ulcer of sacral region, stage 4; L89.312 Pressure ulcer of right buttock, stage 2; R77.0 Abnormality of albumin; Z72.0 Tobacco use
CPT/HCPCS: A9270

== ENCOUNTER 2020-08-25 00:29 | Day surgery (SDC) | payer OTHER | END 2020-08-25 22:53 | disposition home or self-care (01) | LOC: WOUND 00:29 | DX: L89.323 Pressure ulcer of left buttock, stage 3 (principal); L89.154 Pressure ulcer of sacral region, stage 4; L89.312 Pressure ulcer of right buttock, stage 2; Z72.0 Tobacco use; R77.0 Abnormality of albumin | CPT/HCPCS: A9270 ==

== ENCOUNTER 2020-09-08 00:36 | Day surgery (SDC) | payer OTHER | END 2020-09-08 23:18 | disposition home or self-care (01) | LOC: WOUND 00:36 | DX: L89.324 Pressure ulcer of left buttock, stage 4 (principal); L89.154 Pressure ulcer of sacral region, stage 4; R77.0 Abnormality of albumin; J44.9 Chronic obstructive pulmonary disease, unspecified; E78.5 Hyperlipidemia, unspecified; F17.210 Nicotine dependence, cigarettes, uncomplicated; F11.20 Opioid dependence, uncomplicated; G89.29 Other chronic pain | CPT/HCPCS: A9270 ==

== ENCOUNTER 2020-09-29 00:28 | Day surgery (SDC) | payer OTHER | END 2020-09-29 22:43 | disposition home or self-care (01) | LOC: WOUND 00:28 | DX: L89.324 Pressure ulcer of left buttock, stage 4 (principal); L89.154 Pressure ulcer of sacral region, stage 4; F17.200 Nicotine dependence, unspecified, uncomplicated; R77.0 Abnormality of albumin; G62.9 Polyneuropathy, unspecified; J44.9 Chronic obstructive pulmonary disease, unspecified; E78.5 Hyperlipidemia, unspecified; G82.20 Paraplegia, unspecified; N31.9 Neuromuscular dysfunction of bladder, unspecified; Z86.19 Personal history of other infectious and parasitic diseases | CPT/HCPCS: A9270 ==

== ENCOUNTER → 2020-10-05 | Outpatient (CLI) | payer OTHER ==
[2020-10-12 21:11] LABS: COTININE <1.0 ng/mL (.); NICOTINE <1.0 ng/mL (.)
== END | disposition home or self-care (01) ==
LOC: LAB HH 17:14
PROVIDERS: Nurse Practitioner Family
DX: R77.0 Abnormality of albumin (principal); F11.20 Opioid dependence, uncomplicated; Z72.0 Tobacco use
CPT/HCPCS: 82040; G0480

== ENCOUNTER 2020-10-13 04:01 | Day surgery (SDC) | payer OTHER | END 2020-10-13 23:14 | disposition home or self-care (01) | LOC: WOUND 04:01 | DX: L89.323 Pressure ulcer of left buttock, stage 3 (principal); L89.153 Pressure ulcer of sacral region, stage 3 | CPT/HCPCS: A9270 ==

== ENCOUNTER → 2020-10-21 | Outpatient (CLI) | payer OTHER | END | disposition home or self-care (01) | LOC: LAB SHORT 09:10 → LAB 09:10 | DX: L89.323 Pressure ulcer of left buttock, stage 3 (principal); R77.0 Abnormality of albumin | CPT/HCPCS: 84134 ==

== ENCOUNTER 2020-10-27 03:51 | Day surgery (SDC) | payer OTHER | END 2020-10-27 22:47 | disposition home or self-care (01) | LOC: WOUND 03:51 | DX: L89.323 Pressure ulcer of left buttock, stage 3 (principal); L89.153 Pressure ulcer of sacral region, stage 3 ==

== ENCOUNTER 2020-11-10 00:34 | Day surgery (SDC) | payer OTHER | END 2020-11-10 22:47 | disposition home or self-care (01) | LOC: WOUND 00:34 | DX: L89.323 Pressure ulcer of left buttock, stage 3 (principal); L89.153 Pressure ulcer of sacral region, stage 3; J44.9 Chronic obstructive pulmonary disease, unspecified; E78.5 Hyperlipidemia, unspecified; G62.9 Polyneuropathy, unspecified | CPT/HCPCS: A9270 ==

== ENCOUNTER 2020-12-01 00:45 | Day surgery (SDC) | payer OTHER | END 2020-12-01 22:44 | disposition home or self-care (01) | LOC: WOUND 00:45 | DX: L89.324 Pressure ulcer of left buttock, stage 4 (principal); L89.153 Pressure ulcer of sacral region, stage 3; J44.9 Chronic obstructive pulmonary disease, unspecified; E78.5 Hyperlipidemia, unspecified; G82.20 Paraplegia, unspecified; G62.9 Polyneuropathy, unspecified | CPT/HCPCS: A9270; G0463 ==

== ENCOUNTER 2020-12-22 02:06 | Day surgery (SDC) | payer OTHER | END 2020-12-22 23:00 | disposition home or self-care (01) | LOC: WOUND 02:06 | DX: L89.324 Pressure ulcer of left buttock, stage 4 (principal); J44.9 Chronic obstructive pulmonary disease, unspecified; E78.5 Hyperlipidemia, unspecified; G82.20 Paraplegia, unspecified; G62.9 Polyneuropathy, unspecified ==

== ENCOUNTER → 2021-01-02 | Outpatient (CLI) | payer OTHER ==
[2021-01-02 13:14] LABS: Source, Urine Catheter
[2021-01-02 13:56] LABS: Appearance, Urine Hazy (Clear); Bilirubin, Urine Neg (Neg); Blood, Urine 3+ (Neg); Color, Urine Yellow (P-Yellow); Glucose Qualitative, Urine Neg (Neg); Ketones, Urine Neg (Neg); Leukocyte Esterase, Urine 3+ (Neg); Nitrite, Urine Pos (Neg); Protein, Urine 2+ (Neg); Specific Gravity, Urine 1.015 (1.003-1.022); Urobilinogen, Urine NORM (Normal); pH, Urine 6.5 (5.0-8.0)
[2021-01-02 16:18] LABS: Amorphous Light (0-Heavy); Bacteria Many /hpf; Red Blood Cells, Urine 25-50 /hpf (0-2); Squamous Epithelial Cells Many /hpf (Few); White Blood Cells, Urine 50-100 /hpf (0-5)
== END | disposition home or self-care (01) ==
LOC: LAB 13:11 → LAB SHORT 13:11
PROVIDERS: Family Medicine
DX: Z09 Encounter for follow-up examination after completed treatment for conditions other than malignant neoplasm (principal); Z87.440 Personal history of urinary (tract) infections
CPT/HCPCS: 81001; 87086

== ENCOUNTER 2021-01-13 02:36 | Day surgery (SDC) | payer OTHER | END 2021-01-13 23:16 | disposition home or self-care (01) | LOC: WOUND 02:36 | DX: L89.324 Pressure ulcer of left buttock, stage 4 (principal); J44.9 Chronic obstructive pulmonary disease, unspecified; G82.20 Paraplegia, unspecified ==

== ENCOUNTER 2021-01-27 01:25 | Day surgery (SDC) | payer OTHER | END 2021-01-27 23:03 | disposition home or self-care (01) | LOC: WOUND 01:25 | DX: L89.324 Pressure ulcer of left buttock, stage 4 (principal); J44.9 Chronic obstructive pulmonary disease, unspecified; E78.5 Hyperlipidemia, unspecified; G62.9 Polyneuropathy, unspecified; G82.20 Paraplegia, unspecified ==

== ENCOUNTER → 2021-02-02 | Outpatient (CLI) | payer OTHER | END | disposition home or self-care (01) | LOC: LAB SHORT 10:15 | DX: R39.9 Unspecified symptoms and signs involving the genitourinary system (principal) | CPT/HCPCS: 87086 ==

== ENCOUNTER → 2021-02-10 | Outpatient (CLI) | payer OTHER ==
[2021-02-10 18:04] LABS: Appearance, Urine Hazy (Clear); Bilirubin, Urine Neg (Neg); Blood, Urine 5+ (Neg); Color, Urine Yellow (P-Yellow); Glucose Qualitative, Urine Neg (Neg); Ketones, Urine Neg (Neg); Leukocyte Esterase, Urine 3+ (Neg); Nitrite, Urine Neg (Neg); Protein, Urine 2+ (Neg); Urobilinogen, Urine NORM (Normal)
[2021-02-10 18:19] LABS: Bacteria Many /hpf; Squamous Epithelial Cells Mod /hpf (Few)
[2021-02-10 18:20] LABS: Amorphous Light (0-Heavy)
== END | disposition home or self-care (01) ==
LOC: LAB SHORT 15:56
PROVIDERS: Family Medicine
DX: R39.9 Unspecified symptoms and signs involving the genitourinary system (principal)
CPT/HCPCS: 81001; 87086

== ENCOUNTER 2021-02-17 00:41 | Day surgery (SDC) | payer OTHER | END 2021-02-17 12:00 | disposition home or self-care (01) | LOC: WOUND 00:41 | DX: L89.324 Pressure ulcer of left buttock, stage 4 (principal); J44.9 Chronic obstructive pulmonary disease, unspecified; E78.5 Hyperlipidemia, unspecified; G62.9 Polyneuropathy, unspecified; G82.20 Paraplegia, unspecified; N31.9 Neuromuscular dysfunction of bladder, unspecified | CPT/HCPCS: A9270 ==

== ENCOUNTER 2021-03-03 04:21 | Day surgery (SDC) | payer OTHER | END 2021-03-03 23:39 | disposition home or self-care (01) | LOC: WOUND 04:21 | DX: L89.324 Pressure ulcer of left buttock, stage 4 (principal); L89.152 Pressure ulcer of sacral region, stage 2; J44.9 Chronic obstructive pulmonary disease, unspecified; E78.5 Hyperlipidemia, unspecified; G82.20 Paraplegia, unspecified; G62.9 Polyneuropathy, unspecified; N31.9 Neuromuscular dysfunction of bladder, unspecified | CPT/HCPCS: A9270 ==

== ENCOUNTER 2021-03-10 03:43 | Day surgery (SDC) | payer OTHER | END 2021-03-10 22:53 | disposition home or self-care (01) | LOC: WOUND 03:43 | DX: L89.324 Pressure ulcer of left buttock, stage 4 (principal); L89.312 Pressure ulcer of right buttock, stage 2; L89.152 Pressure ulcer of sacral region, stage 2; S31.31XA Laceration without foreign body of scrotum and testes, initial encounter; X58.XXXA Exposure to other specified factors, initial encounter | CPT/HCPCS: A9270 ==

== ENCOUNTER 2021-03-17 05:46 | Day surgery (SDC) | payer OTHER | END 2021-03-17 23:34 | disposition home or self-care (01) | LOC: WOUND 05:46 | DX: L89.324 Pressure ulcer of left buttock, stage 4 (principal); L89.312 Pressure ulcer of right buttock, stage 2; L89.152 Pressure ulcer of sacral region, stage 2; S31.31XA Laceration without foreign body of scrotum and testes, initial encounter; X58.XXXA Exposure to other specified factors, initial encounter | CPT/HCPCS: A9270 ==

== ENCOUNTER 2021-04-07 05:21 | Day surgery (SDC) | payer OTHER | END 2021-04-07 22:56 | disposition home or self-care (01) | LOC: WOUND 05:21 | DX: L89.323 Pressure ulcer of left buttock, stage 3 (principal); L89.312 Pressure ulcer of right buttock, stage 2; L89.152 Pressure ulcer of sacral region, stage 2; J44.9 Chronic obstructive pulmonary disease, unspecified; E78.5 Hyperlipidemia, unspecified; G89.29 Other chronic pain; G82.20 Paraplegia, unspecified; F11.20 Opioid dependence, uncomplicated | CPT/HCPCS: A9270; G0463 ==

== ENCOUNTER 2021-04-17 00:14 | Emergency (ER) | payer OTHER ==
[~2021-04-17] VITALS: Ht 172.7 cm; Wt 74.8 kg
[2021-04-17] MEDS ORDERED: SULTRIDS PO (01:26)
[2021-04-17 01:50] LABS: Source, Urine Catheter
[2021-04-17 02:05] LABS: Bilirubin, Urine Neg (Neg); Blood, Urine 5+ (Neg); Glucose Qualitative, Urine Neg (Neg); Ketones, Urine 4+ (Neg); Leukocyte Esterase, Urine 3+ (Neg); Nitrite, Urine Neg (Neg); Protein, Urine 3+ (Neg); Specific Gravity, Urine 1.015 (1.003-1.022); Urobilinogen, Urine 1+ (Normal)
[2021-04-17 02:12] LABS: Appearance, Urine Cloudy (Clear); Color, Urine Yellow (P-Yellow)
[2021-04-17 02:13] LABS: Amorphous Light (0-Heavy); Bacteria Many /hpf; Red Blood Cells, Urine TNTC /hpf (0-2); Squamous Epithelial Cells Mod /hpf (Few); Transitional Epithelial Cells Few /hpf (0-Rare); White Blood Cells, Urine TNTC /hpf (0-5)
== END 2021-04-17 04:28 | disposition home or self-care (01) ==
LOC: ER 00:14
PROVIDERS: Student in an Organized Health Care Education/Training Program
DX: T83.098A Other mechanical complication of other urinary catheter, initial encounter (principal); R82.90 Unspecified abnormal findings in urine; J44.9 Chronic obstructive pulmonary disease, unspecified; G62.9 Polyneuropathy, unspecified; F17.210 Nicotine dependence, cigarettes, uncomplicated; Z79.899 Other long term (current) drug therapy
CPT/HCPCS: 81001; 87077; 87086; 87186; 99283; A9270

== ENCOUNTER 2021-04-21 01:40 | Day surgery (SDC) | payer OTHER ==
[~2021-04-21 01:40] MED LIST changes: +SULTRIDS PO
== END 2021-04-21 23:22 | disposition home or self-care (01) ==
LOC: WOUND 01:40
DX: L89.324 Pressure ulcer of left buttock, stage 4 (principal); L89.312 Pressure ulcer of right buttock, stage 2; L89.152 Pressure ulcer of sacral region, stage 2; G62.9 Polyneuropathy, unspecified; J44.9 Chronic obstructive pulmonary disease, unspecified; E78.5 Hyperlipidemia, unspecified; G82.20 Paraplegia, unspecified; G89.29 Other chronic pain; F11.20 Opioid dependence, uncomplicated
CPT/HCPCS: A9270; G0463

== ENCOUNTER → 2021-06-05 | Outpatient (CLI) | payer OTHER ==
[2021-06-05 16:45] LABS: Source, Urine Foley catheter
[2021-06-05 17:34] LABS: Appearance, Urine Hazy (Clear); Bilirubin, Urine Neg (Neg); Blood, Urine 5+ (Neg); Color, Urine Yellow (P-Yellow); Glucose Qualitative, Urine Neg (Neg); Ketones, Urine Neg (Neg); Leukocyte Esterase, Urine 3+ (Neg); Nitrite, Urine Neg (Neg); Protein, Urine 2+ (Neg); Urobilinogen, Urine NORM (Normal)
[2021-06-05 17:51] LABS: Bacteria Mod /hpf; Red Blood Cells, Urine 50-100 /hpf (0-2); Squamous Epithelial Cells Many /hpf (Few)
[2021-06-05 17:52] LABS: Granular Casts 0-2 /lpf (0); Hyaline Casts 0-2 /lpf (0-2); Mucus Light (0-Heavy)
== END | disposition home or self-care (01) ==
LOC: LAB SHORT 16:39
PROVIDERS: Family Medicine
DX: Z46.6 Encounter for fitting and adjustment of urinary device (principal); N31.9 Neuromuscular dysfunction of bladder, unspecified; R30.9 Painful micturition, unspecified
CPT/HCPCS: 81001; 87086

== ENCOUNTER 2021-06-09 05:36 | Day surgery (SDC) | payer OTHER | END 2021-06-09 12:00 | disposition home or self-care (01) | LOC: WOUND 05:36 | DX: L89.324 Pressure ulcer of left buttock, stage 4 (principal); L89.312 Pressure ulcer of right buttock, stage 2; L89.152 Pressure ulcer of sacral region, stage 2; S31.31XA Laceration without foreign body of scrotum and testes, initial encounter; X58.XXXA Exposure to other specified factors, initial encounter; J44.9 Chronic obstructive pulmonary disease, unspecified; G82.20 Paraplegia, unspecified | CPT/HCPCS: A9270; G0463 ==

== ENCOUNTER 2021-06-23 00:42 | Day surgery (SDC) | payer OTHER | END 2021-06-23 23:34 | disposition home or self-care (01) | LOC: WOUND 00:42 | DX: L89.324 Pressure ulcer of left buttock, stage 4 (principal); L89.312 Pressure ulcer of right buttock, stage 2; L89.152 Pressure ulcer of sacral region, stage 2 | CPT/HCPCS: A9270 ==

== ENCOUNTER 2021-07-07 03:01 | Day surgery (SDC) | payer OTHER | END 2021-07-07 23:10 | disposition home or self-care (01) | LOC: WOUND 03:01 | DX: L89.324 Pressure ulcer of left buttock, stage 4 (principal); L89.312 Pressure ulcer of right buttock, stage 2; L89.152 Pressure ulcer of sacral region, stage 2; J44.9 Chronic obstructive pulmonary disease, unspecified | CPT/HCPCS: A9270; G0463 ==

== ENCOUNTER 2021-08-16 00:25 | Day surgery (SDC) | payer OTHER | END 2021-08-16 23:00 | disposition home or self-care (01) | LOC: WOUND 00:25 | DX: L89.324 Pressure ulcer of left buttock, stage 4 (principal); L89.312 Pressure ulcer of right buttock, stage 2; L89.152 Pressure ulcer of sacral region, stage 2; J44.9 Chronic obstructive pulmonary disease, unspecified; E78.5 Hyperlipidemia, unspecified; G62.9 Polyneuropathy, unspecified | CPT/HCPCS: A9270; G0463 ==

== ENCOUNTER 2021-09-01 03:02 | Day surgery (SDC) | payer OTHER | END 2021-09-01 23:12 | disposition home or self-care (01) | LOC: WOUND 03:02 | DX: L89.324 Pressure ulcer of left buttock, stage 4 (principal); G82.20 Paraplegia, unspecified; G62.9 Polyneuropathy, unspecified; J44.9 Chronic obstructive pulmonary disease, unspecified; E78.5 Hyperlipidemia, unspecified; N31.9 Neuromuscular dysfunction of bladder, unspecified; Z86.19 Personal history of other infectious and parasitic diseases | CPT/HCPCS: A9270; G0463 ==

== ENCOUNTER 2021-09-15 01:17 | Day surgery (SDC) | payer OTHER | END 2021-09-15 22:47 | disposition home or self-care (01) | LOC: WOUND 01:17 | DX: L89.324 Pressure ulcer of left buttock, stage 4 (principal) | CPT/HCPCS: A9270; G0463 ==

== ENCOUNTER 2021-10-03 02:02 | Day surgery (SDC) | payer OTHER | END 2021-10-03 23:15 | disposition home or self-care (01) | LOC: WOUND 02:02 | DX: L89.324 Pressure ulcer of left buttock, stage 4 (principal); Z72.0 Tobacco use | CPT/HCPCS: 99406; A9270 ==

== ENCOUNTER 2021-10-17 03:03 | Day surgery (SDC) | payer OTHER | END 2021-10-17 23:12 | disposition home or self-care (01) | LOC: WOUND 03:03 | DX: L89.324 Pressure ulcer of left buttock, stage 4 (principal); Z72.0 Tobacco use | CPT/HCPCS: 99406; A9270 ==

== ENCOUNTER → 2021-10-20 | Outpatient (CLI) | payer OTHER | END | disposition home or self-care (01) | LOC: LAB 09:09 → LAB SHORT 09:09 | DX: N39.0 Urinary tract infection, site not specified (principal) | CPT/HCPCS: 87086 ==

== ENCOUNTER 2021-10-24 01:14 | Day surgery (SDC) | payer OTHER | END 2021-10-24 23:22 | disposition home or self-care (01) | LOC: WOUND 01:14 | DX: L89.324 Pressure ulcer of left buttock, stage 4 (principal); Z72.0 Tobacco use; G82.22 Paraplegia, incomplete | CPT/HCPCS: 99406; A9270 ==

== ENCOUNTER 2021-11-21 01:30 | Day surgery (SDC) | payer OTHER | END 2021-11-21 05:33 | disposition home or self-care (01) | LOC: WOUND 01:30 | DX: L89.324 Pressure ulcer of left buttock, stage 4 (principal); L89.313 Pressure ulcer of right buttock, stage 3; G82.22 Paraplegia, incomplete; L89.210 Pressure ulcer of right hip, unstageable; Z72.0 Tobacco use | CPT/HCPCS: 82947; A9270; G0463 ==

== ENCOUNTER → 2021-12-05 | Day surgery (SDC) | payer OTHER | LOC: WOUND 03:31 | DX: L89.324 Pressure ulcer of left buttock, stage 4 (principal); L89.313 Pressure ulcer of right buttock, stage 3; G82.22 Paraplegia, incomplete; L89.210 Pressure ulcer of right hip, unstageable; Z72.0 Tobacco use | CPT/HCPCS: A9270; G0463 ==

== ENCOUNTER 2022-01-31 14:22 | Emergency (ER) | payer OTHER ==
[~2022-01-31] VITALS: Ht 170.2 cm; Wt 74.8 kg
[2022-01-31 15:35] LABS: BASOPHILS ABSOLUTE AUTO 0.04 K/mm3 (0.00-0.23); BASOPHILS PERCENT AUTO 0 % (0-2); EOSINOPHILS PERCENT AUTO 4 % (0-6); Hematocrit 46.8 % (37.0-53.0); Hemoglobin 16.1 g/dL (13.5-17.5); IMMATURE GRAN ABSOLUTE AUTO 0.05 K/mm3 (0.00-0.10); IMMATURE GRAN PERCENT AUTO 1 % (0-1); LYMPHOCYTES ABSOLUTE AUTO 1.96 K/mm3 (0.84-5.20); LYMPHOCYTES PERCENT AUTO 21 % (21-46); MONOCYTES ABSOLUTE AUTO 0.84 K/mm3 (0.16-1.47); MONOCYTES PERCENT AUTO 9 % (4-13); Mean Corpuscular HGB 32.3 pg (26.0-34.0); Mean Corpuscular HGB Conc 34.4 g/dL (31.5-36.5); Mean Corpuscular Volume 94 fL (80-100); Mean Platelet Volume 9.7 fL (9.1-12.4); NEUTROPHILS ABSOLUTE AUTO 5.86 K/mm3 (1.96-9.15); NEUTROPHILS PERCENT AUTO 64 % (41-73); Platelet Count 250 K/mm3 (150-400); RDW Coefficient Variation 13.4 % (11.7-14.2); RDW Standard Deviation 46.4 fL (35.1-46.3); Red Blood Cell Count 4.99 M/mm3 (4.30-5.90); White Blood Cell Count 9.15 K/mm3 (4.00-11.30)
== END 2022-01-31 20:17 | disposition home or self-care (01) ==
LOC: ER 14:22
PROVIDERS: Physician Assistant
DX: R23.4 Changes in skin texture (principal); J44.9 Chronic obstructive pulmonary disease, unspecified; F17.210 Nicotine dependence, cigarettes, uncomplicated; Z79.899 Other long term (current) drug therapy
CPT/HCPCS: 36415; 73620; 85025; 99283-25

== ENCOUNTER 2022-03-13 01:51 | Day surgery (SDC) | payer OTHER | END 2022-03-13 23:12 | disposition home or self-care (01) | LOC: WOUND 01:51 | DX: S91.102D Unspecified open wound of left great toe without damage to nail, subsequent encounter (principal); S91.101D Unspecified open wound of right great toe without damage to nail, subsequent encounter; S91.104D Unspecified open wound of right lesser toe(s) without damage to nail, subsequent encounter; L89.893 Pressure ulcer of other site, stage 3; I73.9 Peripheral vascular disease, unspecified; G62.9 Polyneuropathy, unspecified; J44.9 Chronic obstructive pulmonary disease, unspecified; G82.20 Paraplegia, unspecified; F11.20 Opioid dependence, uncomplicated; G89.29 Other chronic pain | CPT/HCPCS: G0463 ==

== ENCOUNTER 2022-03-27 04:18 | Day surgery (SDC) | payer OTHER | END 2022-03-27 23:17 | disposition home or self-care (01) | LOC: WOUND 04:18 | DX: S91.119A Laceration without foreign body of unspecified toe without damage to nail, initial encounter (principal); L89.893 Pressure ulcer of other site, stage 3; I73.9 Peripheral vascular disease, unspecified | CPT/HCPCS: G0463 ==

== ENCOUNTER 2022-04-02 12:11 | Emergency (ER) | payer OTHER ==
[~2022-04-02] VITALS: Ht 167.6 cm; Wt 74.8 kg
== END 2022-04-02 16:35 | disposition home or self-care (01) ==
LOC: ER 12:11
DX: S72.491A Other fracture of lower end of right femur, initial encounter for closed fracture (principal); J44.9 Chronic obstructive pulmonary disease, unspecified; F17.210 Nicotine dependence, cigarettes, uncomplicated; W05.0XXA Fall from non-moving wheelchair, initial encounter; Z79.899 Other long term (current) drug therapy
CPT/HCPCS: 73502; 73552; 93971

== ENCOUNTER 2022-04-17 00:44 | Day surgery (SDC) | payer OTHER | END 2022-04-17 22:57 | disposition home or self-care (01) | LOC: WOUND 00:44 | DX: S91.111A Laceration without foreign body of right great toe without damage to nail, initial encounter (principal); X58.XXXA Exposure to other specified factors, initial encounter; L97.512 Non-pressure chronic ulcer of other part of right foot with fat layer exposed; L89.893 Pressure ulcer of other site, stage 3; I73.9 Peripheral vascular disease, unspecified | CPT/HCPCS: A9270 ==

== ENCOUNTER 2022-05-01 02:59 | Day surgery (SDC) | payer OTHER | END 2022-05-01 23:02 | disposition home or self-care (01) | LOC: WOUND 02:59 | DX: S91.111A Laceration without foreign body of right great toe without damage to nail, initial encounter (principal); X58.XXXA Exposure to other specified factors, initial encounter; L97.512 Non-pressure chronic ulcer of other part of right foot with fat layer exposed; G82.21 Paraplegia, complete; I73.9 Peripheral vascular disease, unspecified | CPT/HCPCS: A9270 ==

== ENCOUNTER 2022-05-08 02:14 | Day surgery (SDC) | payer OTHER | END 2022-05-08 22:43 | disposition home or self-care (01) | LOC: WOUND 02:14 | DX: S91.111A Laceration without foreign body of right great toe without damage to nail, initial encounter (principal); L97.512 Non-pressure chronic ulcer of other part of right foot with fat layer exposed; G82.21 Paraplegia, complete; I73.9 Peripheral vascular disease, unspecified | CPT/HCPCS: A9270; G0463 ==

== ENCOUNTER 2022-05-22 01:32 | Day surgery (SDC) | payer OTHER | END 2022-05-22 22:36 | disposition home or self-care (01) | LOC: WOUND 01:32 | DX: L97.512 Non-pressure chronic ulcer of other part of right foot with fat layer exposed (principal); S91.104D Unspecified open wound of right lesser toe(s) without damage to nail, subsequent encounter; S91.101D Unspecified open wound of right great toe without damage to nail, subsequent encounter; G82.21 Paraplegia, complete; I73.9 Peripheral vascular disease, unspecified | CPT/HCPCS: G0463 ==

== ENCOUNTER 2022-06-05 01:15 | Day surgery (SDC) | payer OTHER | END 2022-06-05 22:45 | disposition home or self-care (01) | LOC: WOUND 01:15 | DX: L97.512 Non-pressure chronic ulcer of other part of right foot with fat layer exposed (principal); S91.104A Unspecified open wound of right lesser toe(s) without damage to nail, initial encounter; S91.101A Unspecified open wound of right great toe without damage to nail, initial encounter; G82.21 Paraplegia, complete; I73.9 Peripheral vascular disease, unspecified | CPT/HCPCS: G0463 ==

== ENCOUNTER 2022-07-01 09:58 | Emergency (ER) | payer OTHER ==
[~2022-07-01] VITALS: Ht 170.2 cm; Wt 77.1 kg
[2022-07-01 11:53] LABS: Source, Urine Suprapubic Cath
[2022-07-01 12:03] LABS: Appearance, Urine Hazy (Clear); Bilirubin, Urine Neg (Neg); Blood, Urine 5+ (Neg); Color, Urine Yellow (P-Yellow); Glucose Qualitative, Urine Neg (Neg); Ketones, Urine 1+ (Neg); Leukocyte Esterase, Urine 3+ (Neg); Nitrite, Urine Neg (Neg); Protein, Urine 2+ (Neg); Specific Gravity, Urine 1.015 (1.003-1.022); Urobilinogen, Urine NORM (Normal)
[2022-07-01 12:13] LABS: White Blood Cells, Urine 50-100 /hpf (0-5)
[2022-07-01 12:14] LABS: Bacteria Many /hpf; Squamous Epithelial Cells Rare /hpf (Few)
== END 2022-07-01 13:12 | disposition home or self-care (01) ==
LOC: ER 09:58
PROVIDERS: Student in an Organized Health Care Education/Training Program
DX: T83.83XA Hemorrhage due to genitourinary prosthetic devices, implants and grafts, initial encounter (principal); J44.9 Chronic obstructive pulmonary disease, unspecified; F17.210 Nicotine dependence, cigarettes, uncomplicated; Z79.899 Other long term (current) drug therapy
CPT/HCPCS: 81001

== ENCOUNTER 2022-08-07 02:13 | Day surgery (SDC) | payer OTHER | END 2022-08-07 22:46 | disposition home or self-care (01) | LOC: WOUND 02:13 | DX: L89.623 Pressure ulcer of left heel, stage 3 (principal); G82.21 Paraplegia, complete; Z72.0 Tobacco use; I73.9 Peripheral vascular disease, unspecified | CPT/HCPCS: 99406; G0463 ==

== ENCOUNTER 2022-08-21 02:40 | Day surgery (SDC) | payer OTHER | END 2022-08-21 22:48 | disposition home or self-care (01) | LOC: WOUND 02:40 | DX: L89.613 Pressure ulcer of right heel, stage 3 (principal); L98.492 Non-pressure chronic ulcer of skin of other sites with fat layer exposed; L97.512 Non-pressure chronic ulcer of other part of right foot with fat layer exposed; S91.104D Unspecified open wound of right lesser toe(s) without damage to nail, subsequent encounter; S91.101D Unspecified open wound of right great toe without damage to nail, subsequent encounter; X58.XXXD Exposure to other specified factors, subsequent encounter; G82.21 Paraplegia, complete; I73.9 Peripheral vascular disease, unspecified; Z72.0 Tobacco use | CPT/HCPCS: 99406; G0463 ==

== ENCOUNTER 2022-08-28 02:47 | Day surgery (SDC) | payer OTHER | END 2022-08-28 22:56 | disposition home or self-care (01) | LOC: WOUND 02:47 | DX: L89.613 Pressure ulcer of right heel, stage 3 (principal); S31.30XA Unspecified open wound of scrotum and testes, initial encounter; S91.104A Unspecified open wound of right lesser toe(s) without damage to nail, initial encounter; S91.101A Unspecified open wound of right great toe without damage to nail, initial encounter; L97.512 Non-pressure chronic ulcer of other part of right foot with fat layer exposed; G82.21 Paraplegia, complete; I73.9 Peripheral vascular disease, unspecified; L89.893 Pressure ulcer of other site, stage 3; X58.XXXA Exposure to other specified factors, initial encounter; Z72.0 Tobacco use | CPT/HCPCS: G0463 ==

== ENCOUNTER 2022-09-20 01:41 | Day surgery (SDC) | payer OTHER | END 2022-09-20 22:51 | disposition home or self-care (01) | LOC: WOUND 01:41 | DX: S91.104D Unspecified open wound of right lesser toe(s) without damage to nail, subsequent encounter (principal); S30.813D Abrasion of scrotum and testes, subsequent encounter; X58.XXXD Exposure to other specified factors, subsequent encounter; L89.893 Pressure ulcer of other site, stage 3; L97.512 Non-pressure chronic ulcer of other part of right foot with fat layer exposed; G82.21 Paraplegia, complete; E11.51 Type 2 diabetes mellitus with diabetic peripheral angiopathy without gangrene; Z72.0 Tobacco use; E11.42 Type 2 diabetes mellitus with diabetic polyneuropathy; J44.9 Chronic obstructive pulmonary disease, unspecified; E78.5 Hyperlipidemia, unspecified | CPT/HCPCS: G0463 ==

== ENCOUNTER 2022-10-11 02:47 | Day surgery (SDC) | payer OTHER | END 2022-10-11 23:30 | disposition home or self-care (01) | LOC: WOUND 02:47 | DX: S31.30XD Unspecified open wound of scrotum and testes, subsequent encounter (principal); S91.104D Unspecified open wound of right lesser toe(s) without damage to nail, subsequent encounter; I70.25 Atherosclerosis of native arteries of other extremities with ulceration; L98.492 Non-pressure chronic ulcer of skin of other sites with fat layer exposed; L89.313 Pressure ulcer of right buttock, stage 3; J44.9 Chronic obstructive pulmonary disease, unspecified; E78.5 Hyperlipidemia, unspecified; G82.20 Paraplegia, unspecified; Z72.0 Tobacco use | CPT/HCPCS: 99406; G0463 ==

== ENCOUNTER → 2022-10-31 | Day surgery (SDC) | payer OTHER | LOC: WOUND 03:03 | DX: S30.813D Abrasion of scrotum and testes, subsequent encounter (principal); S90.414D Abrasion, right lesser toe(s), subsequent encounter; S91.104D Unspecified open wound of right lesser toe(s) without damage to nail, subsequent encounter; S91.101D Unspecified open wound of right great toe without damage to nail, subsequent encounter; L97.512 Non-pressure chronic ulcer of other part of right foot with fat layer exposed; G82.21 Paraplegia, complete; I73.9 Peripheral vascular disease, unspecified; Z72.0 Tobacco use; L89.893 Pressure ulcer of other site, stage 3; X58.XXXD Exposure to other specified factors, subsequent encounter | CPT/HCPCS: G0463 ==

== ENCOUNTER 2023-03-12 15:47 | Emergency (ER) | payer OTHER ==
[~2023-03-12] VITALS: Ht 170.2 cm; Wt 77.1 kg
[2023-03-12 17:59] VITALS: BP 128/70
[2023-03-13] MEDS ORDERED: CYMBALTA30 M2 PO (12:42)
[2023-03-13] MEDS ORDERED: Ventolin/Prove6.7 GM INH (12:42)
[2023-03-13] MEDS ORDERED: ZOLP5 PO (12:43)
[2023-03-13] MEDS ORDERED: OXYC5 PO (14:11)
== END 2023-03-12 18:59 | disposition left against medical advice (07) ==
LOC: ER 15:47
DX: M79.605 Pain in left leg (principal); M79.89 Other specified soft tissue disorders; Z53.29 Procedure and treatment not carried out because of patient's decision for other reasons
CPT/HCPCS: 99282

== ENCOUNTER 2023-03-13 12:29 | Emergency (ER) | payer OTHER ==
[~2023-03-13] VITALS: Ht 170.2 cm; Wt 77.1 kg
[2023-03-13] MEDS ORDERED: Ventolin/Prove6.7 GM INH (12:42)
[2023-03-13] MEDS ORDERED: CYMBALTA30 M2 PO (12:42)
[2023-03-13] MEDS ORDERED: ZOLP5 PO (12:43)
[2023-03-13] MEDS ORDERED: OXYC5 PO (14:11)
[2023-03-13 15:30] VITALS: BP 111/70
== END 2023-03-13 15:58 | disposition home or self-care (01) ==
LOC: ER 12:29
DX: S72.492A Other fracture of lower end of left femur, initial encounter for closed fracture (principal); G82.20 Paraplegia, unspecified; F17.210 Nicotine dependence, cigarettes, uncomplicated; Z99.3 Dependence on wheelchair; Z79.899 Other long term (current) drug therapy; W05.0XXA Fall from non-moving wheelchair, initial encounter
CPT/HCPCS: 29505; 73560-LT; 96372-59; 99283-25; A9270; J1885

== ENCOUNTER 2023-05-10 12:27 | Inpatient (IN) | payer OTHER ==
[~2023-05-10] VITALS: Ht 170.2 cm; Wt 81.6 kg
[~2023-05-10 12:27] MED LIST changes: +CYMBALTA30 M2 PO; +OXYC5 PO; +Ventolin/Prove6.7 GM INH; +ZOLP5 PO
[2023-05-10 13:18] LABS: BASOPHILS ABSOLUTE AUTO 0.02 K/mm3 (0.00-0.23); BASOPHILS PERCENT AUTO 1 % (0-2); EOSINOPHILS ABSOLUTE AUTO 0.02 K/mm3 (0.00-0.68); EOSINOPHILS PERCENT AUTO 1 % (0-6); Hematocrit 46.1 % (37.0-53.0); Hemoglobin 15.7 g/dL (13.5-17.5); IMMATURE GRAN ABSOLUTE AUTO 0.01 K/mm3 (0.00-0.10); IMMATURE GRAN PERCENT AUTO 0 % (0-1); LYMPHOCYTES ABSOLUTE AUTO 0.33 K/mm3 (0.84-5.20); LYMPHOCYTES PERCENT AUTO 8 % (21-46); MONOCYTES ABSOLUTE AUTO 0.05 K/mm3 (0.16-1.47); MONOCYTES PERCENT AUTO 1 % (4-13); Mean Corpuscular HGB Conc 34.1 g/dL (31.5-36.5); Mean Corpuscular Volume 88 fL (80-100); Mean Platelet Volume 11.4 fL (9.1-12.4); NEUTROPHILS ABSOLUTE AUTO 3.49 K/mm3 (1.96-9.15); NEUTROPHILS PERCENT AUTO 89 % (41-73); Platelet Count 146 K/mm3 (150-400); RDW Coefficient Variation 15.4 % (11.7-14.2); RDW Standard Deviation 49.6 fL (35.1-46.3); Red Blood Cell Count 5.23 M/mm3 (4.30-5.90); White Blood Cell Count 3.92 K/mm3 (4.00-11.30)
[2023-05-10 13:36] LABS: Albumin, Blood 2.4 g/dL (3.4-5.0); Albumin/Globulin Ratio 0.6 (0.8-1.8); Bilirubin, Total 0.8 mg/dL (0.1-1.0); Bun/Creatinine Ratio 22.5 (12.0-20.0); Calcium, Blood 8.3 mg/dL (8.5-10.1); Creatinine, Blood 0.8 mg/dL (0.60-1.20); Globulin, Blood 4.1 g/dL (2.2-4.0); Potassium, Blood 3.9 mmol/L (3.5-5.5); Total Protein, Blood 6.5 g/dL (6.4-8.2)
[2023-05-10 13:51] LABS: Influenza A, PCR NEGATIVE (NEGATIVE); Influenza B, PCR NEGATIVE (NEGATIVE); Resp Syncytial Virus, PCR NEGATIVE (NEGATIVE); SARS-Cov-2 (COVID-19) PCR, MMC NEGATIVE (NEGATIVE)
[2023-05-10 15:31] LABS: Source, Urine Suprapubic Cath
[2023-05-10 15:35] LABS: Appearance, Urine Cloudy (Clear); Bilirubin, Urine Neg (Neg); Blood, Urine 4+ (Neg); Color, Urine Yellow (P-Yellow); Glucose Qualitative, Urine Neg (Neg); Ketones, Urine 3+ (Neg); Leukocyte Esterase, Urine 3+ (Neg); Nitrite, Urine Neg (Neg); Protein, Urine 3+ (Neg); Urobilinogen, Urine 1+ (Normal)
[2023-05-10 16:01] LABS: White Blood Cells, Urine 25-50 /hpf (0-5)
[2023-05-10 16:02] LABS: Bacteria Mod /hpf; Squamous Epithelial Cells Many /hpf (Few)
[2023-05-10 16:03] LABS: Amorphous Mod (0-Heavy); Transitional Epithelial Cells Rare /hpf (0-Rare)
[2023-05-10 19:00] VITALS: BP 94/67
[2023-05-10 19:47] VITALS: BP 121/73
[2023-05-10 20:00] VITALS: BP 105/64
[2023-05-10 21:00] VITALS: BP 94/60
[2023-05-10 22:00] VITALS: BP 100/62
[2023-05-10 23:00] VITALS: BP 92/64
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
[2023-05-11] VITALS (11 sets, daily range): BP systolic 73–107; BP diastolic 51–91
[2023-05-11 04:23] LABS: BASOPHILS ABSOLUTE AUTO 0.03 K/mm3 (0.00-0.23); BASOPHILS PERCENT AUTO 0 % (0-2); EOSINOPHILS ABSOLUTE AUTO 0.03 K/mm3 (0.00-0.68); EOSINOPHILS PERCENT AUTO 0 % (0-6); Hematocrit 42.8 % (37.0-53.0); Hemoglobin 14.5 g/dL (13.5-17.5); IMMATURE GRAN ABSOLUTE AUTO 0.04 K/mm3 (0.00-0.10); IMMATURE GRAN PERCENT AUTO 0 % (0-1); LYMPHOCYTES ABSOLUTE AUTO 1.02 K/mm3 (0.84-5.20); LYMPHOCYTES PERCENT AUTO 9 % (21-46); MONOCYTES ABSOLUTE AUTO 0.52 K/mm3 (0.16-1.47); MONOCYTES PERCENT AUTO 5 % (4-13); Mean Corpuscular HGB 29.8 pg (26.0-34.0); Mean Corpuscular HGB Conc 33.9 g/dL (31.5-36.5); Mean Corpuscular Volume 88 fL (80-100); Mean Platelet Volume 11.8 fL (9.1-12.4); NEUTROPHILS ABSOLUTE AUTO 9.92 K/mm3 (1.96-9.15); NEUTROPHILS PERCENT AUTO 86 % (41-73); Platelet Count 120 K/mm3 (150-400); RDW Coefficient Variation 15.4 % (11.7-14.2); RDW Standard Deviation 50.2 fL (35.1-46.3); Red Blood Cell Count 4.87 M/mm3 (4.30-5.90); White Blood Cell Count 11.56 K/mm3 (4.00-11.30)
[2023-05-11 04:35] LABS: Bun/Creatinine Ratio 16.8 (12.0-20.0); Creatinine, Blood 0.77 mg/dL (0.60-1.20); Potassium, Blood 3.6 mmol/L (3.5-5.5)
--- NOTE | 2023-05-11 05:23 | NUR ---
END OF SHIFT NOTE: THIS RN TO PT'S ROOM THIS AM, OBSERVED PT SHAKING IN BED, COVERED IN BLANKETS, AND COMPLAINING OF FEELING COLD. TEMPORAL READING OF 102.8. TYLENOL ADMINISTERED PER EMAR. REPEAT TEMP READING OF 98.0, SHAKING SUBSIDED. HR 80-90'S THIS AM, DOWN FROM 100'S. SBP 90-100'S, MAP >65. PT CONTINUES TO DENY CHEST PAIN/PRESSURE. SPO2 DEMAND INCREASED TO 6L W/ FEBRILE EPISODE; CURRENTLY ON 6L VIA NC W/ SPO2 90%. OSTOMY OUTPUT REMAINS SOLID AND BROWN. PT DECLINED OSTOMY APPLIANCE CHANGE, STATES THAT HE "JUST CHANGED IT" AND IT CAN "WAIT UNTIL THE DAYTIME." SUPRAPUBIC CATH CONTINUES TO DRAIN YELLOW URINE TO GRAVITY. LR CONTINUES INFUSING AT 125 ML/HR. PT REPOSITIONED Q2HRS. NO OTHER NEEDS AT THIS TIME. CALL LIGHT WITHIN REACH, BED IN LOWEST POSITION. WILL REPORT TO ONCOMING RN.
--- NOTE | 2023-05-11 10:23 | NUR ---
NFILTRATION OF IV RIGHT FOREARM. REDNESS,ITCHING AND SWELLING 5 CM. 50 CC CIPRO HAD INFUSED. IV DC'D, CALL TO PHARMACY. NO INTERVENTIONS REQUIRED. NEW IV PLACED ON THE LEFT FOREARM, AND INFUSION WAS REINITIATED.
--- NOTE | 2023-05-11 13:41 | NUR ---
Provider DR. Shaw here, noted low blood pressure. New orders to change LR to NS and increase rate to 150 cc/hour. Pt was repositioned to the left side lying, to his comfort.
--- NOTE | 2023-05-11 17:55 | NUR ---
Pt sitting up in bed, eating dinner independently. No c/o pain at this time.
[2023-05-12 03:35] VITALS: BP 90/66
[2023-05-12 04:43] LABS: Hematocrit 41.6 % (37.0-53.0); Mean Corpuscular HGB 29.5 pg (26.0-34.0); Mean Corpuscular HGB Conc 33.7 g/dL (31.5-36.5); Mean Corpuscular Volume 88 fL (80-100); Mean Platelet Volume 12.4 fL (9.1-12.4); Platelet Count 84 K/mm3 (150-400); RDW Coefficient Variation 15.8 % (11.7-14.2); RDW Standard Deviation 50.8 fL (35.1-46.3); Red Blood Cell Count 4.75 M/mm3 (4.30-5.90); White Blood Cell Count 19.99 K/mm3 (4.00-11.30)
[2023-05-12 04:51] LABS: Bun/Creatinine Ratio 17.9 (12.0-20.0); Calcium, Blood 7.7 mg/dL (8.5-10.1); Creatinine, Blood 0.73 mg/dL (0.60-1.20); Potassium, Blood 3.5 mmol/L (3.5-5.5)
--- NOTE | 2023-05-12 05:17 | NUR ---
END OF SHIFT NOTE: PT REMAINS ALERT, MILDLY CONFUSED AT TIMES BUT ABLE TO ANSWER ALL ORIENTATION QUESTIONS APPROPRIATELY. HR 80-90'S, SINUS RHYTHM ON TELE. BP REMAINS SOFT W/ SBP 80-100'S. MAP >65. SPO2 >90% ON RA W/ OCCASIONAL DESATS INTO 80'S W/ MOVEMENT; ABLE TO RECOVER QUICKLY. AFEBRILE, NO TYLENOL ADMINISTERED THIS SHIFT. PT W/ C/O SEVERE PAIN IN HIS LEG AND BACK, MEDICATED W/ OXYCODONE PER EMAR; PT REPORTS IMPROVEMENT IN HIS PAIN. PT UNABLE TO SLEEP, MELATONIN ADMINISTERED PER EMAR. REPOSITIONED Q2HR T/O SHIFT. OSTOMY CONTINUES TO PRODUCE FORMED, BROWN STOOL. SUPRAPUBIC CATH DRAINING YELLOW URINE TO GRAVITY. NS CONTINUES TO INFUSE AT 150 ML/HR PER EMAR. NO OTHER EVENTS. CALL LIGHT WITHIN REACH, BED IN LOWEST POSITION. WILL REPORT TO ONCOMING RN.
[2023-05-12 06:01] LABS: BAND PERCENT MAN 25 % (0-8); BASOPHILS PERCENT MAN 0 % (0-2); EOSINOPHILS PERCENT MAN 0 % (0-6); LYMPHOCYTES ABSOLUTE MAN 0.99 K/mm3 (0.84-5.20); LYMPHOCYTES PERCENT MAN 5 % (21-46); MONOCYTES ABSOLUTE MAN 0.59 K/mm3 (0.16-1.47); MONOCYTES PERCENT MAN 3 % (4-13); NEUTROPHILS ABSOLUTE MAN 18.39 K/mm3 (1.96-9.15); SEG NEUTROPHILS PERCENT MAN 67 % (41-73); TOTAL CELLS COUNTED 100
[2023-05-12 07:32] VITALS: BP 110/65
[2023-05-12 11:11] VITALS: BP 111/67
--- NOTE | 2023-05-12 16:53 | NUR ---
SHIFT SUMMARY: PT ALERT AND ORIENTED X3-4, FORGETFUL AT TIMES. BP AND HR STABLE, AFEBRILE, SPO2 >90% ON ROOM AIR WHILE AWAKE, NEEDING 2L NC WHILE ASLEEP. RESPIRATIONS EVEN AND UNLABORED. PT WITH HX OF PARAPLEGIA. PULSES STRONG AND EQUAL THROUGHOUT. PT WITH SUPRA PUBIC CATHETER, PATENT AND DRAINING YELLOW URINE TO GRAVITY. PT WITH COLOSTOMY, DRAINING SOFT BROWN STOOL. APPLIANCE OVERALL C/D/I. BEDREST, REPOS Q2 TO MAINTAIN SKIN INTEGRITY. PT NOW MED WITH TELE STATUS. BED IN LOW, ALARM ON FOR SAFETY, CALL LIGHT IN REACH, WILL REPORT TO ONCOMING RN.
[2023-05-12 19:28] VITALS: BP 119/64
--- NOTE | 2023-05-12 21:06 | NUR ---
ASSUMPTION OF CARE THIS RN ASSUMED CARE OF PT AT APPROX 1915. PT ALERT, ORIENTED AT THAT TIME. PT NOTICEABLY SHIVERING IN BED, TEMP 100.8 TEMPORALLY. 650MG TYLENOL ADMINISTERED PER EMAR. FAN APPLIED, BLANKETS REMOVED, ROOM TEMP REDUCED. ON REASSESSMENT, TEMP 101.1 TEMPORALLY. RECTAL TEMP PROBE PLACED PT IS NOW CONFUSED, EXTREMELY LETHARGIC. NOT ABLE TO ANSWER QUESTIONS APPROPRIATELY. CORE TEMP 104.0. ICE PACKS APPLIED TO GROIN AND AXILLA, COLD WASHCLOTHS PLACED ON FOREHEAD AND NECK. CALL PLACED TO BECKY LONG. UPDATE PROVIDED ON THE ABOVE. ORDERS RECEIVED TO CONTINUE EXTERNAL COOLING, START NS AT 100ML/HR, GIVE TORADOL 30MG IV X1, AND GIVE TYLENOL 500MG PER RECTUM X1. TEMP 103.9 AT THIS TIME.
--- NOTE | 2023-05-12 22:19 | NUR ---
UPDATE PT'S TEMP DOWN TO 103.0 AT THIS TIME. MENTATION IS IMPROVING, PT STATES "I JUST WANT TO GO HOME." ICE PACKS REMAIN IN PLACE, FAN ON. FLUIDS RESTARTED PER EMAR AT 100 ML/HR. TORADOL ADMINISTERED, TYLENOL SUPPOSITORY PLACED. RESIDENT PHYSICIAN AT BEDSIDE TO EVALUATE PT THIS PM. ORDERS FOR UPDATED LABS RECEIVED, LABS DRAWN. ANTIBIOTIC CHANGED FROM MAXIPIME TO ROCEPHIN PER ORDERS. RECTAL TEMP PROBE REMAINS IN PLACE.
[2023-05-12 22:24] LABS: Base Excess Venous 1.3 mmol/L; Bicarbonate Venous 25.6 mmol/L (24.0-30.0); PCO2 Venous 38.2 mmHg (38-42); pH Blood Venous 7.43 (7.34-7.37)
[2023-05-12 22:40] LABS: Albumin, Blood 1.8 g/dL (3.4-5.0); Albumin/Globulin Ratio 0.5 (0.8-1.8); Bilirubin, Total 0.9 mg/dL (0.1-1.0); Calcium, Blood 7.8 mg/dL (8.5-10.1); Creatinine, Blood 0.69 mg/dL (0.60-1.20); Globulin, Blood 3.4 g/dL (2.2-4.0); Potassium, Blood 3.1 mmol/L (3.5-5.5); Total Protein, Blood 5.2 g/dL (6.4-8.2)
--- NOTE | 2023-05-13 | NUR ---
PHYSICIAN CONTACT: CALL RECEIVED FROM DR. TRINIDAD REGARDING PT'S CONDITION. UPDATED MD ON EVENTS SINCE START OF SHIFT, VITAL SIGNS, AND CURRENT INTERVENTIONS IN PLACE. MD WITH ORDERS TO DRAW REPEAT BLOOD CULTURES AND TO OBTAIN A NEW URINE SAMPLE THE SAMPLE INITIALLY OBTAINED IN ED WAS DEEMED CONTAMINATED. LAB TO BEDSIDE TO DRAW CULTURES. 0100: ICU LOADING MANAGER AND PCU LOADING MANAGER TO BEDSIDE TO ASSIST IN CHANGING SUPRAPUBIC CATH. CATH SITE OBSERVED TO HAVE SMALL WOUND PRESENT INSIDE, PURULENT DRAINAGE NOTED IN SITE. WOUND CLEANED THOROUGHLY, PHOTO TAKEN TO BE PLACED IN CHART. NEW SUPRAPUBIC CATH PLACED BY JACKSON PICKENS, CATH CLAMPED, WILL OBTAIN URINE SPECIMEN WHEN AVAILABLE.
--- NOTE | 2023-05-13 00:58 | NUR ---
UPDATE THIS RN SPOKE WITH DR. TRINIDAD REGARDING ORDERS RECIEVED. DR. TRINIDAD UPDATED WITH RESULT OF ORIGINAL URINE CULTURE RESULT THAT WAS CONTIMINATED. D/T PATIENT HAVING CHRONIC SUPRAPUBIC CATHETER AND DR. TRINIDAD REQUESTING NEW URINE CULTURE, THIS RN RECIEVED TELEPHONE ORDER TO CHANGE SUPRAPUBIC CATH. ICU SENIOR SAFETY SUPPORT MANAGER AT BEDSIDE TO CHANGE SUPRAPUBIC CATH. NEW CATH PLACED WITHOUT DIFFICULTY. URINE SAMPLE WILL BE OBTAINED AND SENT TO LAB. SEE PRIMARY RNs NOTE.
[2023-05-13 03:18] VITALS: BP 109/54
[2023-05-13 03:56] LABS: Hematocrit 41.3 % (37.0-53.0); Hemoglobin 14.1 g/dL (13.5-17.5); Mean Corpuscular HGB Conc 34.1 g/dL (31.5-36.5); Mean Corpuscular Volume 88 fL (80-100); Mean Platelet Volume 12.2 fL (9.1-12.4); Platelet Count 79 K/mm3 (150-400); RDW Standard Deviation 51.8 fL (35.1-46.3)
[2023-05-13 04:13] LABS: Albumin, Blood 1.7 g/dL (3.4-5.0); Albumin/Globulin Ratio 0.5 (0.8-1.8); Bilirubin, Total 0.4 mg/dL (0.1-1.0); Bun/Creatinine Ratio 19.9 (12.0-20.0); Calcium, Blood 7.8 mg/dL (8.5-10.1); Creatinine, Blood 0.65 mg/dL (0.60-1.20); Globulin, Blood 3.4 g/dL (2.2-4.0); Magnesium, Blood 1.6 mg/dL (1.6-2.4); Potassium, Blood 4.4 mmol/L (3.5-5.5); Total Protein, Blood 5.1 g/dL (6.4-8.2)
[2023-05-13 04:36] LABS: BAND PERCENT MAN 10 % (0-8); BASOPHILS PERCENT MAN 0 % (0-2); EOSINOPHILS PERCENT MAN 0 % (0-6); LYMPHOCYTES ABSOLUTE MAN 1.05 K/mm3 (0.84-5.20); LYMPHOCYTES PERCENT MAN 4 % (21-46); MONOCYTES ABSOLUTE MAN 0.52 K/mm3 (0.16-1.47); MONOCYTES PERCENT MAN 2 % (4-13); NEUTROPHILS ABSOLUTE MAN 24.72 K/mm3 (1.96-9.15); SEG NEUTROPHILS PERCENT MAN 84 % (41-73); TOTAL CELLS COUNTED 100
--- NOTE | 2023-05-13 05:18 | NUR ---
END OF SHIFT NOTE: SEE PREVIOUS NOTES REGARDING CHANGES OVERNIGHT & INTERVENTIONS IMPLEMENTED. HR 90-110'S, SINUS RHYTHM ON TELE. BP REMAINS SOFT W/ SBP 80-100'S, MAP >65. SPO2 >90% ON RA-3L VIA NC. 104.0 TEMP DECREASED W/ TYLENOL, TORADOL, AND EXTERNAL COOLING. TEMP MAINTAINING THIS AM AT 97-99 DEGREES. PT W/ C/O SEVERE PAIN IN HIS LEG AND BACK AT START OF SHIFT, MEDICATED W/ OXYCODONE PER EMAR. REPOSITIONED Q2HR T/O SHIFT. OSTOMY CONTINUES TO PRODUCE FORMED, BROWN STOOL. SUPRAPUBIC CATH DRAINING YELLOW URINE TO GRAVITY; CATH REPLACED THIS SHIFT BY JACKSON PICKENS, NEW URINE CULTURE SENT PER MD KUMAR. NS CONTINUES TO INFUSE AT 100 ML/HR PER EMAR. NO OTHER NEEDS AT THIS TIME. CALL LIGHT WITHIN REACH, BED IN LOWEST POSITION. WILL REPORT TO ONCTOÑA PICKENS.
[2023-05-13 07:56] VITALS: BP 103/60
[2023-05-13 15:55] VITALS: BP 105/67
--- NOTE | 2023-05-13 18:33 | NUR ---
PT SUMMARY: NO ACUTE CHANGE FOR THE SHIFT. VITALS HAS BEEN STABLE, AFEBRILE FOR THE SHIFT. POOR APPETITE, ENCOURAGING PO FLUID INTAKE DECREASED UO 300MLS OUT FOR THE SHIFT PT REMAINS ON NS AT 100MLS/HR, URINE DARK YELLOW IN COLOR. PT WAS ASSISTED UP IN THE RECLINER FOR LUNCH TODAY VIA LIFT, PT MEDICATED FOR PAIN TWICE FOR BACK AND HIP PAIN, PT REPORTS EFFECTIVENESS. PT REPOSITIONED Q2 AND FOR COMFORT. PT RECEIVED A BED BATH. PT HAS BEEN CALLING APPROPRIATELY, PLEASANT AND COHERENT. COLOSTOMY EMPTIES ONCE FOR THE SHIFT, STOOL HARD DARK BROWN IN COLOR. FRIEND DARRYL CAME IN AND BROUGHT PT'S PERSONAL W/C FROM HOME. NO OTHER ISSUES REPORTED, PT IN BED RESTING CALL LIGHTS IN REACH WILL REPORT TO ONCOMING SHIFT
[2023-05-13 20:00] VITALS: BP 127/111
[2023-05-14] VITALS (9 sets, daily range): BP systolic 90–125; BP diastolic 54–102
[2023-05-14 04:04] LABS: Hematocrit 41.4 % (37.0-53.0); Hemoglobin 13.9 g/dL (13.5-17.5); Mean Corpuscular HGB 29.5 pg (26.0-34.0); Mean Corpuscular HGB Conc 33.6 g/dL (31.5-36.5); Mean Corpuscular Volume 88 fL (80-100); Mean Platelet Volume 11.7 fL (9.1-12.4); Platelet Count 90 K/mm3 (150-400); RDW Coefficient Variation 16.5 % (11.7-14.2); RDW Standard Deviation 53.3 fL (35.1-46.3); Red Blood Cell Count 4.71 M/mm3 (4.30-5.90); White Blood Cell Count 26.72 K/mm3 (4.00-11.30)
[2023-05-14 04:23] LABS: Albumin, Blood 1.6 g/dL (3.4-5.0); Anion Gap 4 mmol/L (6-16); Blood Urea Nitrogen 14 mg/dL (8-24); Bun/Creatinine Ratio 20.4 (12.0-20.0); CO2, Blood 25 mmol/L (21-32); Calcium, Blood 7.6 mg/dL (8.5-10.1); Chloride, Blood 113 mmol/L (98-108); Creatinine, Blood 0.69 mg/dL (0.60-1.20); Glomerular Filtration Rate 100 (60-); Glucose, Blood 177 mg/dL (70-99); Magnesium, Blood 1.4 mg/dL (1.6-2.4); Phosphorus, Blood 1.1 mg/dL (2.5-4.9); Potassium, Blood 3.9 mmol/L (3.5-5.5); Sodium, Blood 142 mmol/L (136-145)
[2023-05-14 04:58] LABS: BAND PERCENT MAN 5 % (0-8); BASOPHILS PERCENT MAN 0 % (0-2); EOSINOPHILS PERCENT MAN 0 % (0-6); LYMPHOCYTES % ATYPICAL MANUAL 1 % (0-0); LYMPHOCYTES ABSOLUTE MAN 0.53 K/mm3 (0.84-5.20); LYMPHOCYTES PERCENT MAN 1 % (21-46); MONOCYTES ABSOLUTE MAN 1.06 K/mm3 (0.16-1.47); MONOCYTES PERCENT MAN 4 % (4-13); NEUTROPHILS ABSOLUTE MAN 25.11 K/mm3 (1.96-9.15); SEG NEUTROPHILS PERCENT MAN 89 % (41-73); TOTAL CELLS COUNTED 100
--- NOTE | 2023-05-14 06:16 | NUR ---
SHIFT SUMMARY PT REMAINS A&O X3-4. VSS T/O SHIFT; SBP 120'S, HRR SINUS RHYTHM/SINUS TACH RATE IN 90 - 100'S. PT HAD ONE EPISODE DURING THE SHIFT; WHERE HE SEEMED TOBECOME INCREASINGLY MORE CONFUSED AND PT WAS NOT FOLLOWING COMMANDS, RESTLESS/AGITATED, AND PT NOT ANSWERING ALL QUESTIONS CONSISTENTLY. DURING THIS TIME, PT UNABLE TO VERBALIZE WHAT WAS WRONG. PT MEDICATED PER EMAR FOR PAIN, REPOSITIONED AND THIS DID NOT SEEM TO HELP ALLEVIATE SX. THIS RN NOTIFIED RESIDENT; NEW ORDERS FOR ONE TIME IV DOSE OF TORODOL - SEE EMAR. DURING THIS, PT DID HAVE TREMORS/SHAKING AND APPEARED AFRAID. PT TEMP AT THIS TIME 98.3 ORAL. PT FINALLY ABLE TO RELAX ON HIS OWN AND THEN MENTATION MUCH IMPROVED. PT ANSWERING ALL QUESTIONS APPROPRIATELY AND CONVERSING WITH THIS RN NORMALLY. PT UNABLE TO RECALL EVENT OR WHAT HAPPEN. AFTER, REASSESSMENT OF TEMP SHOWED 99.8; THIS RN APPLIED ICE PACKS AND FAN TO PT. THIS SEEMED TO HELP, RECHECK OF TEMP SHOWED 98.4. NO EVENTS SINCE THE ONE MENTIONED ABOVE. PT C/O OF CHRONIC LEG AND BACK PAIN PREVIOUS. PT REPOSITIONED Q2 OR PRN. NO BM THIS SHIFT. PT SLOAN IN PLACE AND DRAINING; PT HAD 350 MLS OF URINE THIS SHIFT. PT NOT TAKING IN MUCH PO, THIS RN ENCOURAGING PT TO DRINK WATER. IVF PER EMAR. PT NOW RESTING WELL. CALL LIGHT IN REACH. WILL UPDATE ONCOMING RN
--- NOTE | 2023-05-14 11:09 | NUR ---
UPDATE: PT A&Ox4 THIS AM, REQUESTED AND RECEIVED PAIN MEDICATION AT APPROX 0900. APPRX 09 PT C/O CONTINUED PAIN IN LOW BACK, REQUESTS MORE MEDICATION AND REMINDED ABOUT RECENT ADMINISTRATION. PT THEN BEGINS CALLING OUT, FREQUENTLY MOVING AND ATTEMPTING TO REPOSITION, BODY IS STIFF, RHYTHMIC MOTION TO UPPER EXTREMITIES WITH PT RUBBING HEAD THEN REACHING TOWARDS CEILING, HEART RATE 120s-140, O2 SATS <90 (PT PLACED ON 2 L/MIN NC). WHEN THIS EPISODE FIRST BEGAN, PT WAS ANSWERING STAFF WITH YES/NO ANSWERS, THEN PT STOPPED ANSWERING STAFF AND WAS ONLY CRYING OUT. PROVIDER NOTIFIED AND TO BEDSIDE. PT MEDICATED PER ORDERS, HOME MEDICATIONS REVIEWED AND SOME HAVE BEEN ORDERED. PT's PHARMACY HAS BEEN CONTACTED AND IS SENDING MEDICATION LIST. AT THIS TIME, FREQUENCY OF PT CRYING OUT AND MOVING HAS LESSENED AND PT APPEARS MORE RELAXED. WILL CONTINUE TO MONITOR AND TREAT ACCORDINGLY UNTIL CHANGE OF SHIFT.
--- NOTE | 2023-05-14 17:42 | NUR ---
SHIFT SUMMARY: NO OTHER "EPISODES" SINCE THE INITIAL ONE THIS AM. PT HAS BEEN RESTING WITH EYES CLOSED MOST OF THE AFTERNOON, WOKE UP TO STAFF IN ROOM FOR VS CHECK THIS EVENING. PT HAS BEEN A&O SINCE THEN, ABLE TO MAKE NEEDS KNOWN AND ANSWERING QUESTIONS APPROPRIATELY. O2 SATS >93%, CURRENTLY ON 2 L/MIN NC. PT DENIES CP, SR/ST ON MONITOR W/RATE MOSTLY 90s-100. SUPRAPUBIC CATHETER CONTINUES TO DRAIN TO GRAVITY, LOW VOLUME OUTPUT. OSTOMY PATENT, CHECKED OFTEN FOR SIGNS OF NEEDING TO BE EMPTIED OR BURPED. CURRENTLY, PT IS RESTING IN BED W/MEAL TRAY AND CALL LIGHT IN REACH. FLUIDS INFUSING PER ORDERS. WILL CONTINUE TO MONITOR AND TREAT ACCORDINGLY UNTIL CHANGE OF SHIFT.
[2023-05-15 04:24] VITALS: BP 107/56
[2023-05-15 04:25] LABS: BASOPHILS ABSOLUTE AUTO 0.08 K/mm3 (0.00-0.23); BASOPHILS PERCENT AUTO 0 % (0-2); EOSINOPHILS ABSOLUTE AUTO 0.28 K/mm3 (0.00-0.68); EOSINOPHILS PERCENT AUTO 1 % (0-6); Hematocrit 41.1 % (37.0-53.0); Hemoglobin 13.8 g/dL (13.5-17.5); IMMATURE GRAN ABSOLUTE AUTO 0.42 K/mm3 (0.00-0.10); IMMATURE GRAN PERCENT AUTO 2 % (0-1); LYMPHOCYTES PERCENT AUTO 13 % (21-46); MONOCYTES ABSOLUTE AUTO 0.63 K/mm3 (0.16-1.47); MONOCYTES PERCENT AUTO 3 % (4-13); Mean Corpuscular HGB 29.8 pg (26.0-34.0); Mean Corpuscular HGB Conc 33.6 g/dL (31.5-36.5); Mean Corpuscular Volume 89 fL (80-100); Mean Platelet Volume 11.7 fL (9.1-12.4); NEUTROPHILS ABSOLUTE AUTO 15.41 K/mm3 (1.96-9.15); NEUTROPHILS PERCENT AUTO 80 % (41-73); Platelet Count 62 K/mm3 (150-400); RDW Standard Deviation 55.5 fL (35.1-46.3); Red Blood Cell Count 4.63 M/mm3 (4.30-5.90); White Blood Cell Count 19.32 K/mm3 (4.00-11.30)
[2023-05-15 04:56] LABS: Albumin, Blood 1.6 g/dL (3.4-5.0); Anion Gap 3 mmol/L (6-16); Blood Urea Nitrogen 13 mg/dL (8-24); Bun/Creatinine Ratio 19.7 (12.0-20.0); CO2, Blood 27 mmol/L (21-32); Calcium, Blood 7.5 mg/dL (8.5-10.1); Chloride, Blood 112 mmol/L (98-108); Creatinine, Blood 0.66 mg/dL (0.60-1.20); Glomerular Filtration Rate 101 (60-); Glucose, Blood 149 mg/dL (70-99); Magnesium, Blood 1.6 mg/dL (1.6-2.4); Phosphorus, Blood 1.9 mg/dL (2.5-4.9); Potassium, Blood 3.7 mmol/L (3.5-5.5); Sodium, Blood 142 mmol/L (136-145)
--- NOTE | 2023-05-15 06:23 | NUR ---
End of shift note. Pt had an uneventful night. Pt reports minimal sleep overnight. Some issue with coughing/wheezing in the later morning but PRN breathing tx seemed to help. Pt medicated for pain as needed. Staff offered to reposition Pt frequently and Pt has declined all shift. Pt is able to make needs known, call light is within reach.
[2023-05-15 08:02] VITALS: BP 136/102
[2023-05-15 11:42] VITALS: BP 105/59
[2023-05-15 12:04] VITALS: BP 101/49
[2023-05-15 15:05] VITALS: BP 105/65
--- NOTE | 2023-05-15 17:58 | NUR ---
SHIFT SUMMARY; PATIENT TRANSFERRED FROM PCU 11 LATE THIS AFTERNOON. HE WAS COUGHING OFTEN AND APPEARS TO BE SHORT OF BREATH. HE DID ASK FOR PAIN MEDS ON ARRIVAL. WAS CALLED AND ORDERS FOR LACTIC ACID. FLU SWAB AND 1 VIEW CXR GIVEN. PATIENT THEN HAD BREATHING TREATMENT AND SEEMED TO SLOW HIS RESPIRATIONS TO 24 FROM 36 AND COUGHING DID SUBSIDE. PER MD NOTES PATIENT MAY DC IN A FEW DAYS.
[2023-05-15 19:40] LABS: Influenza A, PCR NEGATIVE (NEGATIVE); Influenza B, PCR NEGATIVE (NEGATIVE); Resp Syncytial Virus, PCR NEGATIVE (NEGATIVE); SARS-Cov-2 (COVID-19) PCR, MMC NEGATIVE (NEGATIVE)
[2023-05-15 19:48] VITALS: BP 102/58
--- NOTE | 2023-05-16 04:09 | NUR ---
SHIFT SUMMARY PATIENT HAD NO ACUTE CHANGES OBSERVED. AXOX 3-4 AND BEDREST. POWERGLIDE FLAKO ARM INTACT. IV ABX INFUSED. SUPRA PUBIC SLOAN INTACT AND DRAINING TO GRAVITY. TELE MONITOR NSR 97. ON 3L O2 NC. OSTOMY BAG INTACT. VSS WITH LOW GRADE TEMP 99.3. DENIES CHEST PAIN, SOB, AND N/V. REPORTED INSOMNIA AND TRAZADONE 200 MG GIVEN PER EMAR. REPORTED BACK PAIN X ONE AND OXYCODONE 5 MG GIVEN PRN. WATCHED TV FIRST PART OF SHIFT. CALL LIGHT IN REACH. BED IN LOWEST POSITION. WILL CONTINUE TO MONITOR UNTIL DAY SHIFT NURSE ASSUMES CARE.
[2023-05-16 04:23] VITALS: BP 136/71
[2023-05-16 06:37] LABS: BASOPHILS ABSOLUTE AUTO 0.04 K/mm3 (0.00-0.23); BASOPHILS PERCENT AUTO 0 % (0-2); EOSINOPHILS ABSOLUTE AUTO 0.18 K/mm3 (0.00-0.68); EOSINOPHILS PERCENT AUTO 1 % (0-6); Hematocrit 38.7 % (37.0-53.0); IMMATURE GRAN PERCENT AUTO 1 % (0-1); LYMPHOCYTES ABSOLUTE AUTO 1.51 K/mm3 (0.84-5.20); LYMPHOCYTES PERCENT AUTO 8 % (21-46); MONOCYTES ABSOLUTE AUTO 0.63 K/mm3 (0.16-1.47); MONOCYTES PERCENT AUTO 4 % (4-13); Mean Corpuscular HGB 29.3 pg (26.0-34.0); Mean Corpuscular HGB Conc 33.6 g/dL (31.5-36.5); Mean Corpuscular Volume 87 fL (80-100); Mean Platelet Volume 12.5 fL (9.1-12.4); NEUTROPHILS ABSOLUTE AUTO 15.73 K/mm3 (1.96-9.15); NEUTROPHILS PERCENT AUTO 87 % (41-73); Platelet Count 72 K/mm3 (150-400); RDW Coefficient Variation 17.2 % (11.7-14.2); RDW Standard Deviation 55.1 fL (35.1-46.3); Red Blood Cell Count 4.43 M/mm3 (4.30-5.90); White Blood Cell Count 18.19 K/mm3 (4.00-11.30)
[2023-05-16 07:01] LABS: Albumin, Blood 1.6 g/dL (3.4-5.0); Anion Gap 3 mmol/L (6-16); Blood Urea Nitrogen 10 mg/dL (8-24); Bun/Creatinine Ratio 12.6 (12.0-20.0); CO2, Blood 30 mmol/L (21-32); Calcium, Blood 7.4 mg/dL (8.5-10.1); Chloride, Blood 107 mmol/L (98-108); Creatinine, Blood 0.79 mg/dL (0.60-1.20); Glomerular Filtration Rate 96 (60-); Glucose, Blood 175 mg/dL (70-99); Magnesium, Blood 1.4 mg/dL (1.6-2.4); Phosphorus, Blood 2.6 mg/dL (2.5-4.9); Potassium, Blood 3.2 mmol/L (3.5-5.5); Sodium, Blood 140 mmol/L (136-145)
[2023-05-16 07:29] VITALS: BP 119/64
--- NOTE | 2023-05-16 08:16 | NUR ---
pt laying in bed calling out, a/ox3, cooperative with care, follows commands well, reports pain 9/10, medicated for pain, lungs are clear dim in bases, resp even and unlabored, no cough noted, on 4 liters 02 via n/c, resp even and unlabored, no cough noted, hrr, very distant, edema noted to b/l le, ppp faint, cap refill <3 sec, vs stable, afebrile, iv site is power glide to tamra site is clear and patent, btx4, abd flat soft nontend, ostomy in place draining brown stool, supra pubic cath in place draining pili urine, skin pale, has wound to left foot, top of foot, open to air, moves arms not legs, pilar call light in reach.
[2023-05-16] MEDS ORDERED: FURO20 PO (14:18)
[2023-05-16] MEDS ORDERED: CEFTRIAXON1 GM/50 M1 IV (14:18)
[2023-05-16] MEDS ORDERED: VISBIOME 112.51 EACH PO (14:19)
[2023-05-16] MEDS ORDERED: LORA10ER PO (14:19)
[2023-05-16 14:44] LABS: Albumin, Blood 1.6 g/dL (3.4-5.0); Anion Gap 4 mmol/L (6-16); Blood Urea Nitrogen 10 mg/dL (8-24); Bun/Creatinine Ratio 14.3 (12.0-20.0); CO2, Blood 31 mmol/L (21-32); Calcium, Blood 7.5 mg/dL (8.5-10.1); Chloride, Blood 105 mmol/L (98-108); Glomerular Filtration Rate 99 (60-); Glucose, Blood 205 mg/dL (70-99); Phosphorus, Blood 2.3 mg/dL (2.5-4.9); Sodium, Blood 140 mmol/L (136-145)
[2023-05-16 16:18] VITALS: BP 108/68
--- NOTE | 2023-05-16 18:05 | NUR ---
pt will be on [facility] iv abx, will go home with powerglide, probably tomorrow. have medicated for pain three times today, no further changes this shift. call light in reach.
[2023-05-16 19:13] VITALS: BP 107/63
--- NOTE | 2023-05-17 04:39 | NUR ---
SHIFT SUMMARY PATIENT HAD NO ACUTE CHANGES. AXO X 4 AND BEDREST. ON 3L O2 N/C. SUPRA PUBIC SLOAN INTACT AND DRAINING TO GRAVITY. POWERGLIDE FLAKO ARM INTACT. IV ABX INFUSED. REPORTED BACK PAIN AND OXYCODONE 5 MG GIVEN PER EMAR. DENIES CHEST PAIN, SOB, AND N/V. VSS/AFEBRILE. OSTOMY INTACT. CALL LIGHT IN REACH. BED IN LOWEST POSITION. WILL CONTINUE TO MONITOR UNTIL DAY SHIFT NURSE ASSUMES CARE.
[2023-05-17 05:00] VITALS: BP 117/64
[2023-05-17 06:29] LABS: BASOPHILS ABSOLUTE AUTO 0.06 K/mm3 (0.00-0.23); BASOPHILS PERCENT AUTO 0 % (0-2); EOSINOPHILS ABSOLUTE AUTO 0.44 K/mm3 (0.00-0.68); EOSINOPHILS PERCENT AUTO 2 % (0-6); Hematocrit 39.3 % (37.0-53.0); Hemoglobin 13.3 g/dL (13.5-17.5); IMMATURE GRAN PERCENT AUTO 1 % (0-1); LYMPHOCYTES ABSOLUTE AUTO 2.22 K/mm3 (0.84-5.20); LYMPHOCYTES PERCENT AUTO 10 % (21-46); MONOCYTES ABSOLUTE AUTO 0.99 K/mm3 (0.16-1.47); MONOCYTES PERCENT AUTO 5 % (4-13); Mean Corpuscular HGB 29.8 pg (26.0-34.0); Mean Corpuscular HGB Conc 33.8 g/dL (31.5-36.5); Mean Corpuscular Volume 88 fL (80-100); Mean Platelet Volume 11.2 fL (9.1-12.4); NEUTROPHILS ABSOLUTE AUTO 17.52 K/mm3 (1.96-9.15); NEUTROPHILS PERCENT AUTO 82 % (41-73); Platelet Count 104 K/mm3 (150-400); RDW Coefficient Variation 17.2 % (11.7-14.2); RDW Standard Deviation 55.7 fL (35.1-46.3); Red Blood Cell Count 4.46 M/mm3 (4.30-5.90); White Blood Cell Count 21.43 K/mm3 (4.00-11.30)
[2023-05-17 06:41] LABS: Albumin, Blood 1.7 g/dL (3.4-5.0); Anion Gap 4 mmol/L (6-16); Blood Urea Nitrogen 10 mg/dL (8-24); Bun/Creatinine Ratio 16.4 (12.0-20.0); CO2, Blood 31 mmol/L (21-32); Calcium, Blood 7.7 mg/dL (8.5-10.1); Chloride, Blood 106 mmol/L (98-108); Creatinine, Blood 0.61 mg/dL (0.60-1.20); Glomerular Filtration Rate 103 (60-); Glucose, Blood 128 mg/dL (70-99); Magnesium, Blood 1.7 mg/dL (1.6-2.4); Phosphorus, Blood 2.7 mg/dL (2.5-4.9); Potassium, Blood 4.2 mmol/L (3.5-5.5); Sodium, Blood 141 mmol/L (136-145)
[2023-05-17 07:43] VITALS: BP 122/59
--- NOTE | 2023-05-17 09:45 | NUR ---
pt laying in bed awake a/ox3 asking for pain meds 2 hrs before he can have, repositioned him in bed which helped, a/ox3, cooperative with care, follows commands well, lungs are clear in [place], dim in bases, resp even and unlabored, no cough noted, hrr, tele in place running sr in the 70's, trace edema noted to b/l le, cap refill <3 sec, vs stable, afebrile, piv to rfa, site is clear and patent, power glide to tamra site is clear and patent, btx4, abd flat soft nontender, voids via supra pubic cath, urine cloudy pili urine, skin c/w/d, moves upper ext, legs are flacid, br, total care, pilar, call light in reach.
--- NOTE | 2023-05-17 10:08 | NUR ---
pt did have audible wheezing t/o, and exp wheezing posterior. call light in reach.
--- NOTE | 2023-05-17 14:07 | NUR ---
pt resting in bed, was medicated this afternoon for pain, started him on vanco, report given to [facility]. call light in reach.
[2023-05-17 15:57] VITALS: BP 126/73
--- NOTE | 2023-05-17 18:31 | NUR ---
PATIENT IS ALERT AND ORIENTED AND COOPERATIVE WITH CARE. HE RECIEVED A BEDBATH THIS AFTERNOON. ON 3L O2 VIA NC. SUPRAPUBIC CATHETER CARE PROVIED WITH BEDBATH. OSTOMY LEFT SIDE IS PINK. SALINE LOCKED. MEDICATED FOR PAIN PER EMAR. WILL CONTINUE TO MONITOR
[2023-05-17 19:18] VITALS: BP 123/68
[2023-05-18 04:31] VITALS: BP 118/63
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
[2023-05-18 07:30] LABS: BASOPHILS ABSOLUTE AUTO 0.05 K/mm3 (0.00-0.23); BASOPHILS PERCENT AUTO 0 % (0-2); EOSINOPHILS ABSOLUTE AUTO 0.01 K/mm3 (0.00-0.68); EOSINOPHILS PERCENT AUTO 0 % (0-6); Hematocrit 40.6 % (37.0-53.0); Hemoglobin 13.7 g/dL (13.5-17.5); IMMATURE GRAN ABSOLUTE AUTO 0.25 K/mm3 (0.00-0.10); IMMATURE GRAN PERCENT AUTO 1 % (0-1); LYMPHOCYTES ABSOLUTE AUTO 1.82 K/mm3 (0.84-5.20); LYMPHOCYTES PERCENT AUTO 8 % (21-46); MONOCYTES ABSOLUTE AUTO 0.68 K/mm3 (0.16-1.47); MONOCYTES PERCENT AUTO 3 % (4-13); Mean Corpuscular HGB 29.8 pg (26.0-34.0); Mean Corpuscular HGB Conc 33.7 g/dL (31.5-36.5); Mean Corpuscular Volume 88 fL (80-100); Mean Platelet Volume 12.3 fL (9.1-12.4); NEUTROPHILS ABSOLUTE AUTO 19.25 K/mm3 (1.96-9.15); NEUTROPHILS PERCENT AUTO 87 % (41-73); Platelet Count 143 K/mm3 (150-400); RDW Coefficient Variation 17.2 % (11.7-14.2); White Blood Cell Count 22.06 K/mm3 (4.00-11.30)
[2023-05-18 07:50] VITALS: BP 130/64
[2023-05-18 07:59] LABS: Albumin, Blood 1.6 g/dL (3.4-5.0); Albumin/Globulin Ratio 0.4 (0.8-1.8); Bilirubin, Total 0.4 mg/dL (0.1-1.0); Bun/Creatinine Ratio 27.3 (12.0-20.0); C-REACTIVE PROTEIN, EXT RANGE 13.5 mg/dL (0.000-0.300); Calcium, Blood 8.1 mg/dL (8.5-10.1); Creatinine, Blood 0.59 mg/dL (0.60-1.20); Globulin, Blood 3.9 g/dL (2.2-4.0); Magnesium, Blood 1.8 mg/dL (1.6-2.4); Phosphorus, Blood 3.4 mg/dL (2.5-4.9); Potassium, Blood 4.5 mmol/L (3.5-5.5); Total Protein, Blood 5.5 g/dL (6.4-8.2)
--- NOTE | 2023-05-18 18:32 | NUR ---
SHIFT SUMMARY PATIENT IN BED ALL SHIFT, WILLING TO REPOSITION. STAFF MANAGING COLOSTOMY AND CHRONIC CATHETER. VANCO GIVEN, NO COMPLICATIONS. OXY DOSING INCREASED THIS SHIFT PER DOC ORDERS. POWERGLIDE UNABLE TO DRAW BLOOD. ATTEMPTED TO WEAN OXYGEN, 88-89% ON ROOM AIR, CONTINUED WITH 1-2L NEEDED. WILL CONTINUE TO MONITOR
[2023-05-18 19:37] VITALS: BP 150/68
[2023-05-18 23:13] LABS: Vancomycin, Trough 29.7 ug/mL (5.0-10.0)
[2023-05-19 03:23] VITALS: BP 130/69
--- NOTE | 2023-05-19 05:08 | NUR ---
SHIFT SUMMARY NOC PT A/O X 4. PLEASANT AND COOPERATIVE WITH CARE. NO ACUTE CHANGES TO REPORT. PT HAD CRITICAL VANCO TROUGH AND VANCO RETIMED FOR 0900. PT HAS SUPRAPUBIC CATHETER IN PLACE DRAINING TO GRAVITY. PT ON O2 2L/NC SPO2 >92%. PT HAS PG IN JUD[place]. PT IS WAITING ON SNF PLACEMENT FOR REHAB AND CONTINUE ABX THERAPY. ON TELE RUNNING SINUS RHYTHM IN 70'S-80'S. PT IS CURRENTLY RESTING WITH BED IN LOWEST POSITION, AND CALL LIGHT WITHIN REACH.
[2023-05-19 05:11] LABS: BASOPHILS ABSOLUTE AUTO 0.03 K/mm3 (0.00-0.23); BASOPHILS PERCENT AUTO 0 % (0-2); EOSINOPHILS ABSOLUTE AUTO 0.19 K/mm3 (0.00-0.68); EOSINOPHILS PERCENT AUTO 1 % (0-6); Hematocrit 39.5 % (37.0-53.0); Hemoglobin 13.3 g/dL (13.5-17.5); IMMATURE GRAN ABSOLUTE AUTO 0.09 K/mm3 (0.00-0.10); IMMATURE GRAN PERCENT AUTO 1 % (0-1); LYMPHOCYTES ABSOLUTE AUTO 2.78 K/mm3 (0.84-5.20); LYMPHOCYTES PERCENT AUTO 18 % (21-46); MONOCYTES ABSOLUTE AUTO 0.74 K/mm3 (0.16-1.47); MONOCYTES PERCENT AUTO 5 % (4-13); Mean Corpuscular HGB 29.6 pg (26.0-34.0); Mean Corpuscular HGB Conc 33.7 g/dL (31.5-36.5); Mean Corpuscular Volume 88 fL (80-100); Mean Platelet Volume 11.2 fL (9.1-12.4); NEUTROPHILS ABSOLUTE AUTO 11.75 K/mm3 (1.96-9.15); NEUTROPHILS PERCENT AUTO 76 % (41-73); Platelet Count 210 K/mm3 (150-400); RDW Coefficient Variation 17.3 % (11.7-14.2); RDW Standard Deviation 55.4 fL (35.1-46.3); White Blood Cell Count 15.58 K/mm3 (4.00-11.30)
[2023-05-19 05:49] LABS: Albumin, Blood 1.7 g/dL (3.4-5.0); Anion Gap 2 mmol/L (6-16); Blood Urea Nitrogen 16 mg/dL (8-24); Bun/Creatinine Ratio 25.2 (12.0-20.0); CO2, Blood 35 mmol/L (21-32); Calcium, Blood 7.7 mg/dL (8.5-10.1); Chloride, Blood 105 mmol/L (98-108); Creatinine, Blood 0.64 mg/dL (0.60-1.20); Glomerular Filtration Rate 102 (60-); Glucose, Blood 117 mg/dL (70-99); Phosphorus, Blood 2.9 mg/dL (2.5-4.9); Potassium, Blood 3.7 mmol/L (3.5-5.5); Sodium, Blood 142 mmol/L (136-145); Vancomycin, Random 24.7 ug/mL
[2023-05-19 07:17] VITALS: BP 135/76
[2023-05-19 15:07] VITALS: BP 124/63
--- NOTE | 2023-05-19 15:55 | NUR ---
SHIFT SUMMARY PATIENT IN BED THIS SHIFT, WILLING TO REPOSITION WHEN NEEDED. ADEQUATE OUTPUT. C/O BILAT LEG AND LOWER BACK PAIN, CHRONIC, MANAGED WELL WITH OXY. DECREASED APPETITE. NO COMPLAINTS OF NAUSEA. WILL CONTINUE TO MONITOR
[2023-05-19 19:17] VITALS: BP 107/82
[2023-05-20 04:53] VITALS: BP 125/68
--- NOTE | 2023-05-20 05:49 | NUR ---
SHIFT SUMMARY NOC PT A/O X 4. PLEASANT AND COOPERATIVE WITH CARE. NO ACUTE CHANGES TO REPORT. PT HAS SUPRAPUBIC CATHETER IN PLACE DRAINING TO GRAVITY. PT ON RA SPO2 >88% AND PT REFUSED TO PUT O2 BACK ON, DENIES SOB. PT HAS PG IN JUDY. PT IS WAITING ON SNF PLACEMENT FOR REHAB AND CONTINUE ABX THERAPY. ON TELE RUNNING SINUS RHYTHM IN 70'S-80'S. PT IS CURRENTLY RESTING WITH BED IN LOWEST POSITION, AND CALL LIGHT WITHIN REACH.
[2023-05-20 07:55] VITALS: BP 117/70
[2023-05-20 08:50] LABS: BASOPHILS ABSOLUTE AUTO 0.04 K/mm3 (0.00-0.23); BASOPHILS PERCENT AUTO 0 % (0-2); EOSINOPHILS ABSOLUTE AUTO 0.22 K/mm3 (0.00-0.68); EOSINOPHILS PERCENT AUTO 1 % (0-6); Hematocrit 44.7 % (37.0-53.0); Hemoglobin 14.6 g/dL (13.5-17.5); IMMATURE GRAN ABSOLUTE AUTO 0.13 K/mm3 (0.00-0.10); IMMATURE GRAN PERCENT AUTO 1 % (0-1); LYMPHOCYTES ABSOLUTE AUTO 2.56 K/mm3 (0.84-5.20); LYMPHOCYTES PERCENT AUTO 16 % (21-46); MONOCYTES ABSOLUTE AUTO 0.77 K/mm3 (0.16-1.47); MONOCYTES PERCENT AUTO 5 % (4-13); Mean Corpuscular HGB 29.3 pg (26.0-34.0); Mean Corpuscular HGB Conc 32.7 g/dL (31.5-36.5); Mean Corpuscular Volume 90 fL (80-100); Mean Platelet Volume 10.8 fL (9.1-12.4); NEUTROPHILS ABSOLUTE AUTO 12.61 K/mm3 (1.96-9.15); NEUTROPHILS PERCENT AUTO 77 % (41-73); Platelet Count 275 K/mm3 (150-400); RDW Coefficient Variation 17.4 % (11.7-14.2); RDW Standard Deviation 56.7 fL (35.1-46.3); Red Blood Cell Count 4.99 M/mm3 (4.30-5.90); White Blood Cell Count 16.33 K/mm3 (4.00-11.30)
[2023-05-20 09:06] LABS: Bun/Creatinine Ratio 17.8 (12.0-20.0); C-REACTIVE PROTEIN, EXT RANGE 12.5 mg/dL (0.000-0.300); Calcium, Blood 8.2 mg/dL (8.5-10.1); Creatinine, Blood 0.62 mg/dL (0.60-1.20); Potassium, Blood 3.9 mmol/L (3.5-5.5)
[2023-05-20 16:18] VITALS: BP 116/65
--- NOTE | 2023-05-20 16:59 | NUR ---
SHIFT SUMMARY: PT A/O X 4, BEDREST. PLEASANT AND COOPERATIVE. PT REFUSING LOVENOX INJECTIONS. PT PAIN MANAGED WITH CURRENT PAIN MEDICATIONS. SLOAN CATHETER PATENT AND DRAINING CLEAR YELLOW URINE. PT WOULD BENEFIT FROM MICONAZOLE POWDER. YEAST RASH DEVELOPING IN GROIN AREA. PT HAS POOR APPETITE.
[2023-05-20 19:41] VITALS: BP 110/59
[2023-05-20] MEDS ORDERED: TRIM100 PO (23:49)
[2023-05-20] MEDS ORDERED: OXYC5 PO (23:51)
[2023-05-21 04:24] VITALS: BP 101/63
[2023-05-21 05:15] LABS: BASOPHILS ABSOLUTE AUTO 0.03 K/mm3 (0.00-0.23); BASOPHILS PERCENT AUTO 0 % (0-2); EOSINOPHILS ABSOLUTE AUTO 0.19 K/mm3 (0.00-0.68); EOSINOPHILS PERCENT AUTO 1 % (0-6); Hematocrit 36.6 % (37.0-53.0); Hemoglobin 12.1 g/dL (13.5-17.5); IMMATURE GRAN ABSOLUTE AUTO 0.14 K/mm3 (0.00-0.10); IMMATURE GRAN PERCENT AUTO 1 % (0-1); LYMPHOCYTES ABSOLUTE AUTO 2.19 K/mm3 (0.84-5.20); LYMPHOCYTES PERCENT AUTO 14 % (21-46); MONOCYTES ABSOLUTE AUTO 0.79 K/mm3 (0.16-1.47); MONOCYTES PERCENT AUTO 5 % (4-13); Mean Corpuscular HGB 29.4 pg (26.0-34.0); Mean Corpuscular HGB Conc 33.1 g/dL (31.5-36.5); Mean Corpuscular Volume 89 fL (80-100); Mean Platelet Volume 10.9 fL (9.1-12.4); NEUTROPHILS ABSOLUTE AUTO 11.96 K/mm3 (1.96-9.15); NEUTROPHILS PERCENT AUTO 78 % (41-73); Platelet Count 305 K/mm3 (150-400); RDW Coefficient Variation 17.1 % (11.7-14.2); RDW Standard Deviation 55.1 fL (35.1-46.3); Red Blood Cell Count 4.11 M/mm3 (4.30-5.90)
[2023-05-21 05:40] LABS: Albumin, Blood 1.7 g/dL (3.4-5.0); Albumin/Globulin Ratio 0.5 (0.8-1.8); Bilirubin, Total 0.2 mg/dL (0.1-1.0); Bun/Creatinine Ratio 17.7 (12.0-20.0); C-REACTIVE PROTEIN, EXT RANGE 11.8 mg/dL (0.000-0.300); Calcium, Blood 7.8 mg/dL (8.5-10.1); Creatinine, Blood 0.62 mg/dL (0.60-1.20); Globulin, Blood 3.7 g/dL (2.2-4.0); Potassium, Blood 3.9 mmol/L (3.5-5.5); Total Protein, Blood 5.4 g/dL (6.4-8.2)
[2023-05-21 07:06] VITALS: BP 117/74
[2023-05-21 11:52] LABS: Vancomycin, Trough 17.9 ug/mL (5.0-10.0)
[2023-05-21 15:33] VITALS: BP 124/64
--- NOTE | 2023-05-21 16:22 | NUR ---
SHIFT SUMMARY: PT A/O X 4, BEDREST AT THIS TIME. PLEASANT AND COOPERATIVE. PT STILL ON 3.5 LPM VIA NC. UNABLE TO WEAN OFF O2, SATS DROPPED TO 86% WHEN HE HAD REMOVED O2 AND WAS FOUND WITHOUT IT ON AT [address] CAMERON NOTIFIED OF CONCERNS AND CXR WAS ORDERED. PT OSTOMY HAS BROWN STOOL IN OSTOMY POUCH. MICONAZOLE POWDER ORDERED FOR START OF YEAST LIKE RASH TO GROIN AND R ARMPIT. PT EATING WELL. PAIN MANAGED AT THIS TIME.
[2023-05-21 19:26] VITALS: BP 113/63
--- NOTE | 2023-05-22 04:07 | NUR ---
NOTE PT RESTING QUIETLY. HE HAS REFUSED HELP TO REPOSITION. LEFT LQ OSTOMY BAG BURPED. NO OUR GA. STOMA PINK. ENCOURAGED TO DRINK WATER. HE LIKES CANDY. SLOAN EMPTIED. URINE CURTIS, CLEAR. MEDCAITED FOR BACK AND LEG PAIN PER EMAR. PT WITJH 3.5 L HIGH FLOW CANNULA IN PLACE. VSS. CARE ON GOING.
[2023-05-22 04:32] VITALS: BP 126/67
[2023-05-22 06:16] LABS: BASOPHILS ABSOLUTE AUTO 0.04 K/mm3 (0.00-0.23); BASOPHILS PERCENT AUTO 0 % (0-2); EOSINOPHILS ABSOLUTE AUTO 0.25 K/mm3 (0.00-0.68); EOSINOPHILS PERCENT AUTO 2 % (0-6); Hematocrit 36.3 % (37.0-53.0); IMMATURE GRAN ABSOLUTE AUTO 0.14 K/mm3 (0.00-0.10); IMMATURE GRAN PERCENT AUTO 1 % (0-1); LYMPHOCYTES ABSOLUTE AUTO 2.04 K/mm3 (0.84-5.20); LYMPHOCYTES PERCENT AUTO 15 % (21-46); MONOCYTES PERCENT AUTO 6 % (4-13); Mean Corpuscular HGB 29.6 pg (26.0-34.0); Mean Corpuscular HGB Conc 33.1 g/dL (31.5-36.5); Mean Corpuscular Volume 90 fL (80-100); Mean Platelet Volume 10.5 fL (9.1-12.4); NEUTROPHILS ABSOLUTE AUTO 10.56 K/mm3 (1.96-9.15); NEUTROPHILS PERCENT AUTO 76 % (41-73); Platelet Count 333 K/mm3 (150-400); RDW Coefficient Variation 17.2 % (11.7-14.2); RDW Standard Deviation 55.6 fL (35.1-46.3); Red Blood Cell Count 4.05 M/mm3 (4.30-5.90); White Blood Cell Count 13.83 K/mm3 (4.00-11.30)
[2023-05-22 06:39] LABS: Albumin, Blood 1.7 g/dL (3.4-5.0); Albumin/Globulin Ratio 0.4 (0.8-1.8); Bilirubin, Total 0.4 mg/dL (0.1-1.0); Bun/Creatinine Ratio 16.2 (12.0-20.0); Calcium, Blood 7.9 mg/dL (8.5-10.1); Creatinine, Blood 0.62 mg/dL (0.60-1.20); Globulin, Blood 3.8 g/dL (2.2-4.0); Potassium, Blood 3.9 mmol/L (3.5-5.5); Total Protein, Blood 5.5 g/dL (6.4-8.2)
[2023-05-22 08:05] VITALS: BP 119/75
[2023-05-22 15:45] VITALS: BP 116/63
--- NOTE | 2023-05-22 16:23 | NUR ---
ASSUMED CARE OF PT AT 1430. NO ACUTE CHANGES DURING MY TIME WITH THE PT. 2-3L NC. PT C/O OF PAIN, TREATED PER EAR. ABLE TO MAKE NEEDS KNOWN. USES CALL LIGHT. MECH SOFT DIET. ALERT AND ORIENTED X4. LIFT ASSIST REQUIRED
[2023-05-22 19:15] VITALS: BP 117/60
[2023-05-23 03:20] VITALS: BP 116/71
--- NOTE | 2023-05-23 04:19 | NUR ---
1900: ASSUMED CARE OF PT, REPORT RECEIVED FROM ALEXEY RN. PT IS LAYING IN BED TO HIS RIGHT SIDE. OXYGEN VIA NC AT 3LPM. BREATHING IS EVEN AND UNLABORED. A/O X4. DENIES DISTRESS OR DISCOMFORT AT THAT TIME. REQUEST FOR PAIN MEDICATION AND SLEEP AID EARLY IN THE EVENING, SEE EMR. PT ASSISTED IN BED FOR COMFORT MULTIPLE TIMES DURING THE NIGHT. AIR BED IN PLACE. BLE ELEVATED. BRACE REMOVED FROM LEFT KNEE AT START OF SHIFT. BLANCHEABLE REDNESS TO OUTER LEFT KNEE. CATHETER CARE COMPLETED, GAUZE DRESSING PLACED FOR SKIN INTEGRITY. OSTOMY APPLIANCE CHANGED R/T TO NO SEAL ON ONE SIDE. SKIN IS CLEANSED AND SKIN PREP PROVIDED PRIOR TO PLACING NEW DEVICE. PT TOLERATED WELL. SKIN IS INTACT. OSTOMY IS BEEFY RED. SAFETY MEASURES TAKEN, PT IS ABLE TO MAKE NEEDS KNOWN. NEEDS ADDRESSED THROUGHOUT THE SHIFT.
[2023-05-23 05:49] LABS: BASOPHILS ABSOLUTE AUTO 0.05 K/mm3 (0.00-0.23); BASOPHILS PERCENT AUTO 0 % (0-2); EOSINOPHILS ABSOLUTE AUTO 0.25 K/mm3 (0.00-0.68); EOSINOPHILS PERCENT AUTO 2 % (0-6); Hematocrit 36.9 % (37.0-53.0); IMMATURE GRAN ABSOLUTE AUTO 0.08 K/mm3 (0.00-0.10); IMMATURE GRAN PERCENT AUTO 1 % (0-1); LYMPHOCYTES ABSOLUTE AUTO 1.59 K/mm3 (0.84-5.20); LYMPHOCYTES PERCENT AUTO 14 % (21-46); MONOCYTES ABSOLUTE AUTO 0.76 K/mm3 (0.16-1.47); MONOCYTES PERCENT AUTO 6 % (4-13); Mean Corpuscular HGB 29.3 pg (26.0-34.0); Mean Corpuscular HGB Conc 32.5 g/dL (31.5-36.5); Mean Corpuscular Volume 90 fL (80-100); Mean Platelet Volume 10.6 fL (9.1-12.4); NEUTROPHILS ABSOLUTE AUTO 9.07 K/mm3 (1.96-9.15); NEUTROPHILS PERCENT AUTO 77 % (41-73); Platelet Count 378 K/mm3 (150-400); RDW Standard Deviation 55.6 fL (35.1-46.3); Red Blood Cell Count 4.09 M/mm3 (4.30-5.90)
[2023-05-23 06:09] LABS: Bun/Creatinine Ratio 21.3 (12.0-20.0); C-REACTIVE PROTEIN, EXT RANGE 10.6 mg/dL (0.000-0.300); Calcium, Blood 8.4 mg/dL (8.5-10.1); Creatinine, Blood 0.61 mg/dL (0.60-1.20)
[2023-05-23 08:19] VITALS: BP 108/63
--- NOTE | 2023-05-23 10:58 | NUR ---
lost iv access, charge is aware a new powerglide will be needed. attempted to wake pt 4 times this morning for breakfast and medications. pt stated "i dont want shit, i want to sleep" he was able to anwer questions appropriately, oriented x4.
[2023-05-23 15:40] VITALS: BP 111/57
--- NOTE | 2023-05-23 19:06 | NUR ---
pt is drowsy, arousable to verbal stimuli. oriented x4. refusing repositionimg at times. not very good po intake. per aid, pt not eating off tray but storing food off to the side. no acute changes this shift. able to make needs known.
[2023-05-23 19:38] VITALS: BP 102/68
--- NOTE | 2023-05-24 05:01 | NUR ---
SHIFT SUMMARY ASHER WAS ALERT AND FULLY ORIENTED THIS SHIFT. PT HAD NO ACUTE EVENTS TONIGHT AND NO NOTED CHANGES IN CONDITION. PT HAD NO NEW COMPLAINTS, AND DENIES SOB OR C/P/PRESSURE. PT CALLED FOR PAIN MEDS ONCE OR TWICE, BUT OTHERWISE SLEPT SOUNDLY THE ENTIRE NIGHT. PT RESTING IN BED AT A LOW POSITION WITH THE CALL LIGHT IN REACH WHICH HE USES APPROPRIATELY.
[2023-05-24 05:57] LABS: BASOPHILS ABSOLUTE AUTO 0.04 K/mm3 (0.00-0.23); BASOPHILS PERCENT AUTO 0 % (0-2); EOSINOPHILS PERCENT AUTO 2 % (0-6); Hematocrit 38.9 % (37.0-53.0); Hemoglobin 12.6 g/dL (13.5-17.5); IMMATURE GRAN ABSOLUTE AUTO 0.07 K/mm3 (0.00-0.10); IMMATURE GRAN PERCENT AUTO 1 % (0-1); LYMPHOCYTES ABSOLUTE AUTO 1.62 K/mm3 (0.84-5.20); LYMPHOCYTES PERCENT AUTO 13 % (21-46); MONOCYTES ABSOLUTE AUTO 0.83 K/mm3 (0.16-1.47); MONOCYTES PERCENT AUTO 7 % (4-13); Mean Corpuscular HGB 29.5 pg (26.0-34.0); Mean Corpuscular HGB Conc 32.4 g/dL (31.5-36.5); Mean Corpuscular Volume 91 fL (80-100); Mean Platelet Volume 10.8 fL (9.1-12.4); NEUTROPHILS ABSOLUTE AUTO 9.94 K/mm3 (1.96-9.15); NEUTROPHILS PERCENT AUTO 78 % (41-73); Platelet Count 395 K/mm3 (150-400); RDW Coefficient Variation 16.9 % (11.7-14.2); Red Blood Cell Count 4.27 M/mm3 (4.30-5.90)
[2023-05-24 06:14] LABS: Bun/Creatinine Ratio 20.9 (12.0-20.0); Calcium, Blood 8.3 mg/dL (8.5-10.1); Creatinine, Blood 0.72 mg/dL (0.60-1.20)
[2023-05-24 07:49] VITALS: BP 108/61
[2023-05-24 15:41] VITALS: BP 111/59
--- NOTE | 2023-05-24 16:10 | NUR ---
NO ACUTE CHANGES THIS SHIFT. PT REFUSING REPOSITIONING EXCEPT FOR MEALS. ABLE TO MAKE NEEDS KNOWN, ATTEPTED TO WEAN O2 DOWN- 84% R/A, 93% 3L NC. UNABLE TO WEAN AT THIS TIME. PAIN TREAED PER EMAR. ANTIBIOTICS CONTINUED
[2023-05-24 19:53] VITALS: BP 118/92
[2023-05-25 04:48] VITALS: BP 123/67
[2023-05-25 04:57] LABS: BASOPHILS ABSOLUTE AUTO 0.04 K/mm3 (0.00-0.23); BASOPHILS PERCENT AUTO 0 % (0-2); EOSINOPHILS ABSOLUTE AUTO 0.25 K/mm3 (0.00-0.68); EOSINOPHILS PERCENT AUTO 2 % (0-6); Hematocrit 37.7 % (37.0-53.0); Hemoglobin 12.3 g/dL (13.5-17.5); IMMATURE GRAN ABSOLUTE AUTO 0.04 K/mm3 (0.00-0.10); IMMATURE GRAN PERCENT AUTO 0 % (0-1); LYMPHOCYTES ABSOLUTE AUTO 2.48 K/mm3 (0.84-5.20); LYMPHOCYTES PERCENT AUTO 23 % (21-46); MONOCYTES PERCENT AUTO 10 % (4-13); Mean Corpuscular HGB 29.5 pg (26.0-34.0); Mean Corpuscular HGB Conc 32.6 g/dL (31.5-36.5); Mean Corpuscular Volume 90 fL (80-100); Mean Platelet Volume 10.3 fL (9.1-12.4); NEUTROPHILS ABSOLUTE AUTO 6.88 K/mm3 (1.96-9.15); NEUTROPHILS PERCENT AUTO 64 % (41-73); Platelet Count 380 K/mm3 (150-400); RDW Coefficient Variation 16.3 % (11.7-14.2); RDW Standard Deviation 53.8 fL (35.1-46.3); Red Blood Cell Count 4.17 M/mm3 (4.30-5.90); White Blood Cell Count 10.79 K/mm3 (4.00-11.30)
[2023-05-25 05:19] LABS: Albumin/Globulin Ratio 0.5 (0.8-1.8); Bilirubin, Total 0.3 mg/dL (0.1-1.0); Bun/Creatinine Ratio 21.7 (12.0-20.0); C-REACTIVE PROTEIN, EXT RANGE 7.46 mg/dL (0.000-0.300); Calcium, Blood 8.8 mg/dL (8.5-10.1); Creatinine, Blood 0.69 mg/dL (0.60-1.20); Globulin, Blood 4.3 g/dL (2.2-4.0); Potassium, Blood 4.3 mmol/L (3.5-5.5); Total Protein, Blood 6.3 g/dL (6.4-8.2)
--- NOTE | 2023-05-25 06:16 | NUR ---
SHIFT SUMMARY MR VENTURA HAS HAD GOOD UOP TO SUPRAPUBIC CATHETER OVERNIGHT BUT NO STOOL TO OSTOMY. TURNED AND REPOSITIONED IN BED. SKIN IS VERY EXCORIATED TO HIS GROIN AND BUTTOCKS/LOWER BACK, MEPILEX ON STAGE 2 SORE ON COCCYX. ON OXYGEN 3L N/C OVERNIGHT. C/O CHRONIC PAIN CONTROLLED ON MEDICATIONS. EDUCATED ON INCENTIVE SPIROMETER AND PERFORMED WITH POOR TECHNIQUE. ON TELEMETRY, SR, NO CALLS FROM MODEL MAKER APPRENTICE OVERNIGHT. BED LOW, CALL LIGHT IN REACH.
[2023-05-25 08:21] VITALS: BP 111/67
[2023-05-25 15:31] VITALS: BP 115/58
--- NOTE | 2023-05-25 16:54 | NUR ---
SHIFT SUMMARY PATIENT IS ALERT AND ORIENTED. PATIENT HAS HAD NO ACUTE EVENTS THIS SHIFT. VITAL SIGNS REVIEWED. IV FLUIDS INFUSED ORDERED. PATIENT HAS COMPLAINED OF PAIN ONCE THIS SHIFT, MEDICATED PER EMAR. PATIENT HAS NOT COMPLAINED OF SOB, NAUSEA, OR VOMITTING THIS SHIFT. PATIENT HAS HAD MINIMAL OUTPUT IN COLOSTOMY THIS SHIFT. BED IN LOCKED AND LOWEST POSITION.
[2023-05-25 21:02] VITALS: BP 123/68
[2023-05-26 04:48] VITALS: BP 131/66
[2023-05-26 05:14] LABS: BASOPHILS ABSOLUTE AUTO 0.05 K/mm3 (0.00-0.23); BASOPHILS PERCENT AUTO 1 % (0-2); EOSINOPHILS ABSOLUTE AUTO 0.22 K/mm3 (0.00-0.68); EOSINOPHILS PERCENT AUTO 3 % (0-6); Hematocrit 38.6 % (37.0-53.0); Hemoglobin 12.4 g/dL (13.5-17.5); IMMATURE GRAN ABSOLUTE AUTO 0.04 K/mm3 (0.00-0.10); IMMATURE GRAN PERCENT AUTO 1 % (0-1); LYMPHOCYTES ABSOLUTE AUTO 2.52 K/mm3 (0.84-5.20); LYMPHOCYTES PERCENT AUTO 29 % (21-46); MONOCYTES ABSOLUTE AUTO 0.89 K/mm3 (0.16-1.47); MONOCYTES PERCENT AUTO 10 % (4-13); Mean Corpuscular HGB 29.3 pg (26.0-34.0); Mean Corpuscular HGB Conc 32.1 g/dL (31.5-36.5); Mean Corpuscular Volume 91 fL (80-100); NEUTROPHILS ABSOLUTE AUTO 5.08 K/mm3 (1.96-9.15); NEUTROPHILS PERCENT AUTO 58 % (41-73); Platelet Count 364 K/mm3 (150-400); RDW Coefficient Variation 16.1 % (11.7-14.2); RDW Standard Deviation 54.3 fL (35.1-46.3); Red Blood Cell Count 4.23 M/mm3 (4.30-5.90)
[2023-05-26 05:44] LABS: C-REACTIVE PROTEIN, EXT RANGE 6.95 mg/dL (0.000-0.300)
[2023-05-26 05:45] LABS: Bun/Creatinine Ratio 25.3 (12.0-20.0); Calcium, Blood 8.6 mg/dL (8.5-10.1); Creatinine, Blood 0.59 mg/dL (0.60-1.20); Potassium, Blood 4.2 mmol/L (3.5-5.5)
--- NOTE | 2023-05-26 06:24 | NUR ---
SHIFT SUMMARY: PT IS ADMITTED FOR CATH RELATED UTI AND IS FULL CODE. IS ALERT AND ABLE TO MAKE NEEDS KNOWN. HAS BEEN A 1 P MIN-MOD DEPENDING ON ACTIVITY. HAS BEEN GIVEN PRN PAIN MANAGEMENT X2. IV TO RIGHT FOREARM IS PATENT WITH DRESSING THAT IS CDI. SUPRAPUBIC CATH IS PATENT AND DRAINING DARK CURTIS URINE. COLOSTOMY TO LOWER LEFT IS PATENT. PARISAJordy REPORTS SINUS @ 70
[2023-05-26 07:52] VITALS: BP 125/61
[2023-05-26 13:44] LABS: Vancomycin, Trough 15.1 ug/mL (5.0-10.0)
[2023-05-26 15:28] VITALS: BP 114/54
--- NOTE | 2023-05-26 17:48 | NUR ---
SHIFT SUMMARY PATIENT IS ALERT AND ORIENTED. PATIENT HAS HAD NO ACUTE EVENTS THIS SHIFT. VITAL SIGNS REVIEWED. PATIENT HAS NOT COMPLAINED OF NAUSEA, SOB OR VOMITTING THIS SHIFT. PATIENT HAS BEEN MEDICATED PER EMAR FOR PAIN THIS SHIFT. IV FLUIDS INFUSED ORDERED. PATIENTS SLOAN IS PATENT AND DRAINING CURTIS URINE. PATIENT IS PLANNING ON DCING HOME WITH HOME HEALTH TOMORROW. BED IN LOCKED AND LOWEST POSITION. CALL LIGHT IN PLACE. WILL MONITOR UNTIL SHIFT CHANGE.
[2023-05-26 19:23] VITALS: BP 103/86
[2023-05-27 02:33] VITALS: BP 100/63
--- NOTE | 2023-05-27 03:59 | NUR ---
1900: ASSUMED CARE OF PT. REPORT RECEIVED FROM DAY SHIFT RN. PT IS LAYING IN BED WITH HOB ELEVATED. A/O X4, BREATHING IS EVEN AND UNLABORED, NO ACUTE DISRESS. NEEDS ADDRESSED THROUGH THE NIGHT. PAIN ADDRESS PER EMR. CATHETER CARE COMPLETED. OSTOMY APPLIACE IS WELL ATTACHED, SMALL FORMED STOOL. PT INDICATES THAT HE IS GOING TO D/C HOME ON SATURDAY MORNING. NEEDS ADDRESSED THROUGHOUT THE SHIFT. SAFETY MEASURES TAKEN.
[2023-05-27 05:30] LABS: BASOPHILS ABSOLUTE AUTO 0.05 K/mm3 (0.00-0.23); BASOPHILS PERCENT AUTO 1 % (0-2); EOSINOPHILS ABSOLUTE AUTO 0.23 K/mm3 (0.00-0.68); EOSINOPHILS PERCENT AUTO 3 % (0-6); Hematocrit 38.4 % (37.0-53.0); Hemoglobin 12.4 g/dL (13.5-17.5); IMMATURE GRAN ABSOLUTE AUTO 0.03 K/mm3 (0.00-0.10); IMMATURE GRAN PERCENT AUTO 0 % (0-1); LYMPHOCYTES ABSOLUTE AUTO 1.96 K/mm3 (0.84-5.20); LYMPHOCYTES PERCENT AUTO 25 % (21-46); MONOCYTES PERCENT AUTO 10 % (4-13); Mean Corpuscular HGB 29.7 pg (26.0-34.0); Mean Corpuscular HGB Conc 32.3 g/dL (31.5-36.5); Mean Corpuscular Volume 92 fL (80-100); Mean Platelet Volume 10.6 fL (9.1-12.4); NEUTROPHILS ABSOLUTE AUTO 4.91 K/mm3 (1.96-9.15); NEUTROPHILS PERCENT AUTO 62 % (41-73); Platelet Count 369 K/mm3 (150-400); RDW Coefficient Variation 16.1 % (11.7-14.2); RDW Standard Deviation 55.1 fL (35.1-46.3); Red Blood Cell Count 4.17 M/mm3 (4.30-5.90); White Blood Cell Count 7.98 K/mm3 (4.00-11.30)
[2023-05-27 06:01] LABS: Bun/Creatinine Ratio 26.1 (12.0-20.0); C-REACTIVE PROTEIN, EXT RANGE 3.68 mg/dL (0.000-0.300); Calcium, Blood 8.8 mg/dL (8.5-10.1); Creatinine, Blood 0.46 mg/dL (0.60-1.20); Potassium, Blood 3.8 mmol/L (3.5-5.5)
[2023-05-27 07:32] VITALS: BP 112/55
[2023-05-27] MEDS ORDERED: FURO40 PO (13:52)
[2023-05-27] MEDS ORDERED: MELATONIN5 M1 PO (13:53)
--- NOTE | 2023-05-27 16:30 | NUR ---
DISCHARGE A&OX4, COOPERATIVE WITH CARE. NO ACUTE EVENTS THIS SHIFT. DENIED CP/PRESSURE, HEADACHE, DIZZINESS, OR SOB. MEDICATED PER EMAR FOR 9/10 PAIN TO LLE AND COCCYX. DISCHARGE PACKET REVIEWED WITH PATIENT. NO QUESTIONS OR CONCERNS VERBALIZED. PATIENT WAS PICKED UP BY [facility] AT 1600 FOR TRANSPORT.
== END 2023-05-27 15:59 | disposition home or self-care (01) | DRG 698 ==
LOC: ER 12:27 → PCU 17:43 → MEDS 05-15 16:24
PROVIDERS: Emergency Medicine; Family Medicine; Internal Medicine; Nurse Practitioner Acute Care; Student in an Organized Health Care Education/Training Program; ADMIT Internal Medicine
PROC: 3E03329 Introduction of Other Anti-infective into Peripheral Vein, Percutaneous Approach (ICD-10-PCS; principal; 2023-05-10)
PROC: 0T9B70Z Drainage of Bladder with Drainage Device, Via Natural or Artificial Opening (ICD-10-PCS; 2023-05-10)
DX: T83.510A Infection and inflammatory reaction due to cystostomy catheter, initial encounter (principal); A41.81 Sepsis due to Enterococcus; G92.8 Other toxic encephalopathy; J96.01 Acute respiratory failure with hypoxia; I50.31 Acute diastolic (congestive) heart failure; N39.0 Urinary tract infection, site not specified; Z16.20 Resistance to unspecified antibiotic; G82.21 Paraplegia, complete; N31.2 Flaccid neuropathic bladder, not elsewhere classified; Y84.6 Urinary catheterization as the cause of abnormal reaction of the patient, or of later complication, without mention of misadventure at the time of the procedure; J44.9 Chronic obstructive pulmonary disease, unspecified; M50.30 Other cervical disc degeneration, unspecified cervical region; K21.9 Gastro-esophageal reflux disease without esophagitis; G47.30 Sleep apnea, unspecified; G62.9 Polyneuropathy, unspecified; B19.20 Unspecified viral hepatitis C without hepatic coma; F32.A Depression, unspecified; D50.9 Iron deficiency anemia, unspecified; G89.29 Other chronic pain; B96.4 Proteus (mirabilis) (morganii) as the cause of diseases classified elsewhere; F41.1 Generalized anxiety disorder; R79.89 Other specified abnormal findings of blood chemistry; I48.91 Unspecified atrial fibrillation; F17.210 Nicotine dependence, cigarettes, uncomplicated; Z79.891 Long term (current) use of opiate analgesic; Z79.899 Other long term (current) drug therapy; Z87.442 Personal history of urinary calculi; Z98.890 Other specified postprocedural states; Z93.3 Colostomy status; Z93.2 Ileostomy status; Z87.81 Personal history of (healed) traumatic fracture; Z11.52 Encounter for screening for COVID-19; Z79.51 Long term (current) use of inhaled steroids; Z99.81 Dependence on supplemental oxygen
CPT/HCPCS: 0241U; 36415; 51705; 51798; 70450; 71045; 71046; 71260; 80048; 80053; 80069; 80202; 81001; 82803; 83605; 83735; 83880; 84100; 84145; 84484; 85025; 85651; 86140; 87040; 87070; 87077; 87086; 87186; 87205; 92526; 92610; 93005; 93010; 93306; 94640; 94664; 94760; 94761; 94762; 96365-59; 96375-59; 99285-25; A9270; C1751; C2627; J0692; J0696; J0744; J1200; J1650; J1885; J1940; J3360; J3370; J3475; J3480; J7030; J7050; J7060; J7120; J7512; Q9967

== ENCOUNTER → 2023-06-13 | Outpatient (CLI) | payer OTHER ==
[~2023-06-13] MED LIST changes: +CEFTRIAXON1 GM/50 M1 IV; +FURO20 PO; +FURO40 PO; +LORA10ER PO; +MELATONIN5 M1 PO; +TRIM100 PO; +VISBIOME 112.51 EACH PO
== END ==
LOC: LAB 12:36 → LAB SHORT 12:36
DX: N30.20 Other chronic cystitis without hematuria (principal); T83.9XXS Unspecified complication of genitourinary prosthetic device, implant and graft, sequela
CPT/HCPCS: 87086

== ENCOUNTER 2023-08-28 02:23 | Day surgery (SDC) | payer OTHER | END 2023-08-28 23:28 | disposition home or self-care (01) | LOC: WOUND 02:23 | DX: L89.219 Pressure ulcer of right hip, unspecified stage (principal); J44.9 Chronic obstructive pulmonary disease, unspecified; E78.5 Hyperlipidemia, unspecified; G62.9 Polyneuropathy, unspecified | CPT/HCPCS: G0463 ==

== ENCOUNTER → 2024-06-11 | Outpatient (CLI) | payer OTHER ==
[~2024-06-11] MED LIST changes: +ONDA4ODT MM
== END ==
LOC: LAB SHORT 17:44 → LAB 17:44
DX: L98.492 Non-pressure chronic ulcer of skin of other sites with fat layer exposed (principal)
CPT/HCPCS: 87070; 87075; 87077; 87186; 87205

== ENCOUNTER 2024-06-21 19:33 | Inpatient (IN) | payer OTHER ==
[~2024-06-21] VITALS: Ht 180.3 cm; Wt 64.4 kg
[~2024-06-21 19:33] MED LIST changes: +EPINEPhrine HCl 0.1 MG/ML STE Water 10ML SYR IV ONE
[2024-06-21] MEDS ORDERED: propofoL 100 ML IV ONE (19:36)
[2024-06-21 19:52] LABS: BASOPHILS ABSOLUTE AUTO 0.09 K/mm3 (0.00-0.23); BASOPHILS PERCENT AUTO 1 % (0-2); EOSINOPHILS ABSOLUTE AUTO 0.63 K/mm3 (0.00-0.68); EOSINOPHILS PERCENT AUTO 4 % (0-6); Hematocrit 46.5 % (37.0-53.0); Hemoglobin 15.2 g/dL (13.5-17.5); Mean Corpuscular HGB 31.3 pg (26.0-34.0); Mean Corpuscular HGB Conc 32.7 g/dL (31.5-36.5); Mean Corpuscular Volume 96 fL (80-100); Mean Platelet Volume 10.3 fL (9.1-12.4); Platelet Count 209 K/mm3 (150-400); RDW Coefficient Variation 14.7 % (11.7-14.2); RDW Standard Deviation 52.2 fL (35.1-46.3); Red Blood Cell Count 4.85 M/mm3 (4.30-5.90); White Blood Cell Count 16.82 K/mm3 (4.00-11.30)
[2024-06-21 19:57] LABS: IMMATURE GRAN ABSOLUTE AUTO 0.08 K/mm3 (0.00-0.10); IMMATURE GRAN PERCENT AUTO 1 % (0-1); LYMPHOCYTES ABSOLUTE AUTO 5.59 K/mm3 (0.84-5.20); LYMPHOCYTES PERCENT AUTO 33 % (21-46); MONOCYTES PERCENT AUTO 7 % (4-13); NEUTROPHILS ABSOLUTE AUTO 9.23 K/mm3 (1.96-9.15); NEUTROPHILS PERCENT AUTO 55 % (41-73)
[2024-06-21] MEDS ORDERED: fentaNYL citrate 1,000 MCG in NS 80 ML IV SCH (20:00)
[2024-06-21] MEDS ORDERED: propofoL 100 ML IV SCH (20:00)
[2024-06-21] MEDS ORDERED: NS 1,000 ML IV SCH (20:05)
[2024-06-21] MEDS ORDERED: Vancomycin HCL 2,000 MG in NS 520 ML IV ONE (20:20)
[2024-06-21] MEDS ORDERED: Piperacillin/Tazobactam Sod 3.375 GM in NS 100 ML IV ONE (20:20)
[2024-06-21 20:25] LABS: Albumin, Blood 2.9 g/dL (3.4-5.0); Albumin/Globulin Ratio 0.9 (0.8-1.8); Bilirubin, Total 0.3 mg/dL (0.1-1.0); Bun/Creatinine Ratio 22.8 (12.0-20.0); Calcium, Blood 8.5 mg/dL (8.5-10.1); Creatinine, Blood 0.66 mg/dL (0.60-1.20); Globulin, Blood 3.3 g/dL (2.2-4.0); Total Protein, Blood 6.2 g/dL (6.4-8.2)
[2024-06-21 20:29] LABS: Bicarbonate Venous 24.2 mmol/L (24.0-30.0); PCO2 Venous 57.5 mmHg (38-42); pH Blood Venous 7.29 (7.34-7.37)
[2024-06-21 20:58] LABS: PCO2 Venous 19.2 mmHg (38-42); pH Blood Venous 7.24 (7.34-7.37)
[2024-06-21 20:59] LABS: Base Excess Venous -19.2 mmol/L; Bicarbonate Venous 10.9 mmol/L (24.0-30.0)
[2024-06-21] MEDS ORDERED: Ondansetron HCl 2 MG / ML 2ML Vial IV PRN (22:10)
[2024-06-21] MEDS ORDERED: FLU VACC TS2024-25(6MOS UP)/PF 45 MCG/0.5 ML SYRINGE IM ONE (22:10)
[2024-06-21] MEDS ORDERED: Ipratropium/Albuterol SulF 2.5-0.5MG/3 ML Amp INH PRN (22:10)
[2024-06-21] MEDS ORDERED: Cetylpyridinium Chloride 1 EA MISC MT SCH (22:15)
[2024-06-21] MEDS ORDERED: NS 1,000 ML IV ONE (22:15)
[2024-06-21 22:31] LABS: Magnesium, Blood 1.8 mg/dL (1.6-2.4)
[2024-06-21] MEDS ORDERED: propofoL 100 ML IV PRN (22:45)
[2024-06-21] MEDS ORDERED: CALCIUM GLUC IN NACL, ISO-OSM 50 ML IV ONE (22:45)
[2024-06-21 23:00] VITALS: BP 108/63
[2024-06-21] MEDS ORDERED: Pantoprazole Sodium 40 MG Injection IV SCH (23:00)
[2024-06-21] MEDS ORDERED: Enoxaparin 40 MG/0.4 ML SYR SC SCH (23:00)
[2024-06-21 23:15] VITALS: BP 121/105
[2024-06-21 23:30] VITALS: BP 111/64
[2024-06-21 23:34] LABS: Bun/Creatinine Ratio 21.8 (12.0-20.0); Creatinine, Blood 0.64 mg/dL (0.60-1.20); Potassium, Blood 4.2 mmol/L (3.5-5.5)
[2024-06-21 23:45] VITALS: BP 108/69
[2024-06-22] VITALS (77 sets, daily range): BP systolic 71–141; BP diastolic 41–115
[2024-06-22] MEDS ORDERED: Hydrogen Peroxide 1.5 % Solution MT SCH
[2024-06-22 01:19] LABS: BASOPHILS ABSOLUTE AUTO 0.07 K/mm3 (0.00-0.23); BASOPHILS PERCENT AUTO 0 % (0-2); EOSINOPHILS ABSOLUTE AUTO 0.21 K/mm3 (0.00-0.68); EOSINOPHILS PERCENT AUTO 1 % (0-6); Hemoglobin 15.2 g/dL (13.5-17.5); IMMATURE GRAN ABSOLUTE AUTO 0.15 K/mm3 (0.00-0.10); IMMATURE GRAN PERCENT AUTO 1 % (0-1); LYMPHOCYTES ABSOLUTE AUTO 1.98 K/mm3 (0.84-5.20); LYMPHOCYTES PERCENT AUTO 7 % (21-46); MONOCYTES PERCENT AUTO 6 % (4-13); Mean Corpuscular HGB 31.7 pg (26.0-34.0); Mean Corpuscular Volume 96 fL (80-100); NEUTROPHILS ABSOLUTE AUTO 22.81 K/mm3 (1.96-9.15); NEUTROPHILS PERCENT AUTO 85 % (41-73); RDW Coefficient Variation 14.6 % (11.7-14.2); RDW Standard Deviation 51.3 fL (35.1-46.3); Red Blood Cell Count 4.79 M/mm3 (4.30-5.90); White Blood Cell Count 26.72 K/mm3 (4.00-11.30)
[2024-06-22 01:19] LABS: Bicarbonate Venous 21.2 mmol/L (24.0-30.0); PCO2 Venous 41.3 mmHg (38-42); pH Blood Venous 7.33 (7.34-7.37)
[2024-06-22 01:20] LABS: Mean Platelet Volume 10.3 fL (9.1-12.4); Platelet Count 170 K/mm3 (150-400)
[2024-06-22 01:47] LABS: Albumin, Blood 2.7 g/dL (3.4-5.0); Albumin/Globulin Ratio 0.8 (0.8-1.8); Bilirubin, Total 0.4 mg/dL (0.1-1.0); Bun/Creatinine Ratio 21.5 (12.0-20.0); Calcium, Blood 8.9 mg/dL (8.5-10.1); Creatinine, Blood 0.65 mg/dL (0.60-1.20); Globulin, Blood 3.3 g/dL (2.2-4.0); Potassium, Blood 4.3 mmol/L (3.5-5.5)
[2024-06-22] MEDS ORDERED: Piperacillin/Tazobactam Sod 4.5 GM in NS 100 ML IV SCH (02:00)
--- NOTE | 2024-06-22 08:55 | NUR ---
CARE ASSUMPTION DURING BEDSIDE SHIFT REPORT FROM NOC RN THE PT IS LYING IN BED INTUBATED ON THE VENTILATOR. ET TUBE CONFIRMED AT BEDSIDE 29CM TO THE LIP AND 27CM TO HIS GUMS. VENT SETTINGS AC/VC 18/450/5.0 W 40% FIO2. PT'S MONITOR SHOWING STABLE MAP >65 W LEVOPHED GTT INFUSING AT 4 MCG/MIN. PROPOFOL GTT INFUSING AT 25 MCG/KG/MIN. PT AWAKENING EASILY TO VOICE AND IS FOLLOWING SOME SIMPLE COMMANDS. NOC RN REPORTING THAT PT'S SUPRAPUBIC CATHETER LEAKING DURING NOC SHIFT. DURING THIS RN'S ASSESSMENT THE PT'S SUPRAPUBIC CATHETER LEAKING SIGNIFICANTLY AROUND SITE. CATHETER CHANGED BY FABRIC CUTTER TO WHICH JAMIE RED BLOOD BEGAN TO COME DOWN THE CATHETER LINE. DR. ELLER NOTIFIED OF THIS FINDING AT THE BEDSIDE. THIS RN INSTRUCTED TO FLUSH CATHETER TO SEE IF THE BLOOD WOULD CLEAR UP. LINE FLUSHED AND URINE BEGAN TO BECOME PINK. PT HAS ILLEOSTOMY W INTACT BAG, NO DRAINAGE IN BAG BUT BAG IS FULL OF GAS WHICH WAS RELEASED.
[2024-06-22] MEDS ORDERED: FentaNYL Citrate 50 MCG/ML 2 ML Injection IV PRN ×2 (09:20→12:20)
[2024-06-22 10:24] LABS: Influenza A, PCR NEGATIVE (NEGATIVE); Influenza B, PCR NEGATIVE (NEGATIVE); Resp Syncytial Virus, PCR NEGATIVE (NEGATIVE); SARS-Cov-2 (COVID-19) PCR, MMC NEGATIVE (NEGATIVE)
[2024-06-22 10:33] LABS: Vancomycin, Random 18.9 ug/mL
[2024-06-22] MEDS ORDERED: Ketamine HCL 10 MG in NS 100 ML IV SCH (15:45)
[2024-06-22] MEDS ORDERED: LORazepam 2 MG/ML 1ML Injection ONE (16:46)
[2024-06-22] MEDS ORDERED: LORazepam 2 MG/ML 1ML Injection IV ONE (16:50)
[2024-06-22] MEDS ORDERED: Ketamine HCL 100 MG in NS 100 ML IV SCH (17:25)
--- NOTE | 2024-06-22 18:10 | NUR ---
DAY SHIFT SUMMARY PT REMAINED INTUBATED THIS SHIFT. IT HAS BEEN DIIFICULT TO KEEP THE PT COMFORTABLE THIS SHIFT HE HAS BEEN VERY AGITATED WHEN AWAKE BUT WHEN HE WAS GIVEN HIGHER DOSES OF PROPOFOL AND IV FENTANYL HE BECAME MORE HYPOTENSIVE AND BRADYCARDIC LOW 40 BPM. IT WAS ATTEMPTED TO REPLACE THE LEVOPHED GTT W EPI TO INCREASE HR ON PROPOFOL BUT PT NEEDING MORE SEDATION AND HAD LOWER BP SO SEDATION WAS CHANGED TO KETAMINE GTT AT THE END OF THE SHIFT. PT FOLLOWING COMMANDS T/O THE SHIFT BUT WAS NOT ABLE TO CALM HIMSELF DOWN WHEN HE WAS NOT ADEQUATELY SEDATED. LEVOPHED GTT ON AT 4 MCG/MIN ALL SHIFT BEFORE BEING SWITCHED TO EPI GTT AT 5 MCG/MIN. ALL VASOPRESSORS STOPPED ONCE KETAMINE GTT STARTED. PT'S SUPRAPUBIC CATHETER CHANGED THIS AM TO LARGER BORE CATHETER AND WHILE INITIAL BLOOD NOTED IN CATHETER LINE IT CLEARED TO NORMAL URINE T/O THE DAY. NO OUTPUT FROM ILLEOSTOMY BAG THIS SHIFT. PT W MULTIPLE WOUNDS ON R CALF/ BIALT BUTTOCKS, BOTTOM OF HIS SCROTUM. ALL WOUNDS CLEANED AND MEDI-HONEY PLACED ON THEM BEFORE PADDED DRESSINGS REPLACED. PT MORE AGITATED AT END OF SHIFT SO DR. PEREZ NOTIFIED AND ADDDITIONAL SEDATION ORDERS ABTAINED. WILL REPORT TO ONCOMING RN.
[2024-06-22] MEDS ORDERED: LORazepam 2 MG/ML 1ML Injection IV PRN (18:40)
[2024-06-22] MEDS ORDERED: fentaNYL citrate 1,000 MCG in NS 80 ML IV SCH (18:40)
[2024-06-22] MEDS ORDERED: FentaNYL Citrate 50 MCG/ML 2 ML Injection IV ONE (18:40)
[2024-06-22] MEDS ORDERED: Protein Supplement 30 ML UD PT SCH (21:00)
[2024-06-22] MEDS ORDERED: Arginine/Glutamine/Calcium Hmb 1 Packet PT SCH (21:00)
[2024-06-22] MEDS ORDERED: Vancomycin HCL 1,250 MG in NS 250 ML IV SCH (22:00)
[2024-06-23] VITALS (31 sets, daily range): BP systolic 86–146; BP diastolic 43–115
[2024-06-23] MEDS ORDERED: Ketamine HCL 1,000 MG in NS 100 ML IV SCH (00:45)
[2024-06-23 04:05] LABS: BASOPHILS ABSOLUTE AUTO 0.06 K/mm3 (0.00-0.23); BASOPHILS PERCENT AUTO 1 % (0-2); EOSINOPHILS ABSOLUTE AUTO 0.42 K/mm3 (0.00-0.68); EOSINOPHILS PERCENT AUTO 3 % (0-6); Hematocrit 38.3 % (37.0-53.0); Hemoglobin 13.3 g/dL (13.5-17.5); IMMATURE GRAN ABSOLUTE AUTO 0.04 K/mm3 (0.00-0.10); IMMATURE GRAN PERCENT AUTO 0 % (0-1); LYMPHOCYTES ABSOLUTE AUTO 2.57 K/mm3 (0.84-5.20); LYMPHOCYTES PERCENT AUTO 20 % (21-46); MONOCYTES ABSOLUTE AUTO 0.87 K/mm3 (0.16-1.47); MONOCYTES PERCENT AUTO 7 % (4-13); Mean Corpuscular HGB 31.8 pg (26.0-34.0); Mean Corpuscular HGB Conc 34.7 g/dL (31.5-36.5); Mean Corpuscular Volume 92 fL (80-100); Mean Platelet Volume 11.1 fL (9.1-12.4); NEUTROPHILS ABSOLUTE AUTO 9.18 K/mm3 (1.96-9.15); NEUTROPHILS PERCENT AUTO 70 % (41-73); Platelet Count 208 K/mm3 (150-400); RDW Coefficient Variation 14.7 % (11.7-14.2); RDW Standard Deviation 49.6 fL (35.1-46.3); Red Blood Cell Count 4.18 M/mm3 (4.30-5.90); White Blood Cell Count 13.14 K/mm3 (4.00-11.30)
[2024-06-23 04:24] LABS: Bun/Creatinine Ratio 29.8 (12.0-20.0); Calcium, Blood 8.4 mg/dL (8.5-10.1); Creatinine, Blood 0.61 mg/dL (0.60-1.20); Magnesium, Blood 1.7 mg/dL (1.6-2.4); Phosphorus, Blood 1.9 mg/dL (2.5-4.9); Potassium, Blood 3.4 mmol/L (3.5-5.5)
--- NOTE | 2024-06-23 06:29 | NUR ---
SHIFT SUMMARY PT HAS HAD ISSUES WITH SEDATION THROUGHOUT THE EVENING. PT HAS REMAINED ON KETAMINE AND FENTANYL WHILE ALSO BEING PLACED ON PROPOFOL. PT HAS HAD SPANS OF TIME THAT HE HAS BEEN COMFORTABLY SEDATED AND SPANS THAT HE HAS BEEN ANXIOUS, PULLING AT RESTRAINTS, AND APPARENTLY UNCOMFORTABLE. PT HAS NOT FOLLOWED COMMANDS THROUGHOUT SHIFT. OXYGEN NEEDS ON VENT HAVE NOT CHANGED. PTS BLOOD PRESSURE HAS BEEN UP AND DOWN DEPENDING ON SEDATION LEVEL WELL HEART RATE. PT HAS NOT HAD STOOL OUT OF HIS COLOSTOMY BAG BUT HAS HAD URINE OUTPUT FROM THE SUPRAPUBIC CATHETER. WILL CONTINUE TO MONITOR PT UNTIL REPORT IS PASSED TO THE DAY SHIFT.
[2024-06-23] MEDS ORDERED: Potassium Phosphate Dibasic 20 MM in Dextrose 5% 500 ML IV STA (08:03)
[2024-06-23] MEDS ORDERED: Mag Sulfate 1 GM/D5% 100ML 100 ML IV STA (08:03)
--- NOTE | 2024-06-23 09:56 | NUR ---
THIS RN ASSUMED CARE OF PT AT 0700. PT IS INTUBATED AND SEDATED, PT HAS NOT FOLLOWED COMMANDS, PT IS REACHING FOR ETT TUBE, DR. BERNARDO BEDSIDE AND IS AWARE. DR. BERNARDO WANTS TO KEEP PT INTUBATED TODAY AND LET HIM RELAX. PT HEART RATE IS IN THE 70s HAD RENATE DOWN TO 40s. BLOOD PRESSURE STABLE AT 103/61 AND ON LEVO ON 1MCG. PT IS ON ACVC 450/30%/5 AND 18 RESPIRATIONS. PT SOUNDS CLEAR/DIMINISHED. PT SATTING >92%. PT HAS SUPRAPUBIC IN PLACE DRAINING TO GRAVITY. PT HAS A COLOSTOMY THAT HAS NOT DRAINED ANYTHING YET. PT ON CHRONIC NARCOTICS AT HOME. PT DOES HAVE NON-HEALED PRESSURE INJURIES ON BUTTOCK AND SCROTUM. PT IS ON PIVOT 1.5 AT GOAL OF 20ML/HR. NO OTHER INTERVENTIONS AT THIS TIME. PLAN OF CARE CONTINUED.
[2024-06-23] MEDS ORDERED: Piperacillin/Tazobactam Sod 3.375 GM in NS 100 ML IV SCH (12:00)
[2024-06-23] MEDS ORDERED: Potassium Chloride 20 MEQ/15 ML UDC PO ONE (12:00)
[2024-06-23] MEDS ORDERED: Magnesium Hydroxide Conc 10 ML UDC PT PRN (13:15)
[2024-06-23] MEDS ORDERED: Bisacodyl 10 MG Supp PR PRN (13:15)
[2024-06-23] MEDS ORDERED: Docusate Sodium Liquid 100 MG UDC PT PRN (13:15)
[2024-06-23 13:23] LABS: Albumin, Blood 2.3 g/dL (3.4-5.0); Anion Gap 7 mmol/L (3-11); Blood Urea Nitrogen 19 mg/dL (8-24); Bun/Creatinine Ratio 29.7 (12.0-20.0); CO2, Blood 28 mmol/L (21-32); Calcium, Blood 8.3 mg/dL (8.5-10.1); Chloride, Blood 112 mmol/L (98-108); Creatinine, Blood 0.64 mg/dL (0.60-1.20); Glomerular Filtration Rate 101 (60-); Glucose, Blood 132 mg/dL (70-99); Sodium, Blood 143 mmol/L (136-145)
--- NOTE | 2024-06-23 15:35 | NUR ---
PT IS IN OR FOR IND OF THE PRESSURE INJURY ON THE RIGHT TIBIA, PT LEFT AT 1533.
[2024-06-23] MEDS ORDERED: Ondansetron HCl 2 MG / ML 2ML Vial ONE (15:37)
--- NOTE | 2024-06-23 18:14 | NUR ---
PT SUMMARY PT IS STILL INTUBATED AND SEDATED. PT DID GO FOR A DEBRIMENT OF THAT RIGHT LOWER LEG PRESSURE INJURY. PT TOLERATED WELL. PT IS STILL MAKING LOTS OF URINE FROM SUPRPUBIC. THIS RN NOTICIED SOME PINK FROTHY SPUTUM FROM ETT SUCTION, DR. BERNARDO WAS NOTIFIED AND SAW PT BEDSIDE, NO NEW INTERVENTIONS AT THIS TIME. WANTS TO MONITOR. NO OTHER NEW ACUTE EVENTS TO REPORT OVERNIGHT. PLAN OF CARE CONTINUED.
[2024-06-23 22:08] LABS: Vancomycin, Trough 12.5 ug/mL (5.0-10.0)
[2024-06-23] MEDS ORDERED: Vancomycin HCL 750 MG in NS 250 ML IV SCH (22:24)
[2024-06-24] VITALS (21 sets, daily range): BP systolic 91–157; BP diastolic 61–99
[2024-06-24 04:14] LABS: Albumin, Blood 2.2 g/dL (3.4-5.0); Albumin/Globulin Ratio 0.7 (0.8-1.8); Bilirubin, Total 0.5 mg/dL (0.1-1.0); Bun/Creatinine Ratio 36.1 (12.0-20.0); Creatinine, Blood 0.61 mg/dL (0.60-1.20); Globulin, Blood 3.3 g/dL (2.2-4.0); Phosphorus, Blood 2.4 mg/dL (2.5-4.9); Potassium, Blood 3.7 mmol/L (3.5-5.5); Total Protein, Blood 5.5 g/dL (6.4-8.2)
[2024-06-24] MEDS ORDERED: POTASSIUM PHOSPHATE DIBASIC IV ONE (05:35)
--- NOTE | 2024-06-24 06:12 | NUR ---
SHIFT SUMMARY NO ACUTE EVENTS THIS SHIFTS, SB-SR 57-70s, SBP MAP >65, RASS +2/-2 WITH FENTANYL, KETAMINE AND PROPOFOL CONTINOUS INFUSIONS TITRATED PER EMAR, PT TURNED AND REPOSITIONED EVERY 2 HOURS, PT VERY SENSITIVE TO ANY STIMULI AND BECOMES AGITATED/RESTLESS EASILY WITH LIGHTS ON AND TALKING IN ROOM, STIMULI DECREASED WITH LIGHTS LEFT OFF AND LOWERED VOICES WHEN IN ROOM, COLOSTOMY APPLIANCE IN PLACE AND INTACT WITH NO OUTPUT NOTED, SUPRAPUBIC CATH PATENT AND DRAINING TO GRAVITY, DRESSING TO RLE DRY AND INTACT, HOB UP 45 DEGREES, SIDE RAILS UP X2, KINZA WRIST RESTRAINTS ON REMAINS INTUBATED ON VENT FIO2 30%, SPO2 >90%, CALLED AND NOTIFIED OF AM LAB RESULTS POTASSIUM 3.7, PHOS 2.4, NEW ORDERS RECEIVED
[2024-06-24] MEDS ORDERED: Potassium Phosphate Dibasic 15 MM in Dextrose 5% 250 ML IV ONE (06:15)
--- NOTE | 2024-06-24 12:54 | NUR ---
PT WAS EXTUBATED TODAY AT 0845, WITH PRESENT AT BEDSIDE, PT WAS PUT ON 4L NC AND TOLERATED REALLY WELL. PT WAS ABLE TO SAY YES AND NO, FOLLOWED COMMANDS, PT WAS ALERT AND ORIENTED X2-3. THROUGHOUT THE DAY THE PT BECAME MORE AGRESSIVE, THREATENING STAFF AND STATED "I'M GOING TO CHOKE YOU" TO THIS RN. THIS RN HAS NOT BEEN ABLE TO GET VITAL SIGNS ON PT AND PT YELLS WHEN TRYING TO GIVE IV MEDICATIONS EVEN AFTER BEING EDUCATED ON THE BENEFITS OF THE MEDICATION. DARRYL IS THE PTs CAREGIVER, THIS RN, AND SOCIAL WORKERS HAVE NOT BEEN ABLE TO GET AHOLD OF DARRYL. DR. GARCIA AND HAVE BEEN NOTIFIED OF THE PTs SITUATION. NO OTHER INTERVENTIONS AT THIS MOMENT. PLAN OF CARE CONTINUED.
[2024-06-24] MEDS ORDERED: TraZODone HCl 100 MG Tab PO PRN (13:55)
--- NOTE | 2024-06-24 15:49 | NUR ---
PT IS BEING TRANSFERED TO [facility].
--- NOTE | 2024-06-24 16:16 | NUR ---
PATIENT ARRIVAL: PATIENT ARRIVES TO UNIT AND WAS TRANSFFERED VIA SLIDE SHEET TO BED. VITAL SIGNS TAKEN AND PATIENT STABLE. PATIENT WAS ANGRY AND VERBALLY STATING "HE WAS GOING TO KILL ONE OF THE NURSES HERE" SETTLED DOWN AFTER BEING ORIETNED TO THE ROOM AND NOTIFIED THAT THE TYPE OF BEHAVIOR WOULD NOT BE TOLERATED WHILE HERE ON THE UNIT. PATIENT IS ORIETNED X3 AND NOT ABLE TO GIVEN ANY INFOMATION REGARDING WHAT BROUGHT HIM HERE. PATIENT CALMED DOWN, OSTOMY DRAINED, AND MEPELEX ON COCCYX WAS REPLACD. PATIENT HAS CALL LIGHT WITHIN REACH AND BED IN LOWEST POSITION.
--- NOTE | 2024-06-24 17:20 | NUR ---
SHIFT SUMMARY: PATIENT IS ALERT AND ORIENTED X3, NOT ABLE TO GIVE THE SITUATION BRINGING HIM TO THE HOSPITAL. IS SATTING >92% ON ROOM AIR, WAS EXTUBATED THIS MORNING. ON TELE SHOWING SINUS RYTHM TO SINUS TACH. OSTOMY WAS CHANGED AND MEEPELEX REPLACED ON COCCYX. PATIENT ORIETNED TO ROOM AND WAS TOLD WE WOULDN'T TOLERATE THE OUTBURSTS OF ANGER AND BEING TALKED TOO RUDELY, OR THREATENED. PATIENT WAS RECEPTIVE AND DID APOLOGIZE. WAS ABLE TO GET SOME REST AND CALMED DOWN. THIS RN WILL CONTINUE TO MONITOR UNTIL CHAIRMAN & CHIEF EXECUTIVE OFFICER RN TAKES OVER.
[2024-06-24] MEDS ORDERED: Arginine/Glutamine/Calcium Hmb 1 Packet PO SCH (21:00)
[2024-06-24 22:37] LABS: Vancomycin, Trough 16.2 ug/mL (5.0-10.0)
[2024-06-24] MEDS ORDERED: Morphine Sulfate 4 MG/1 ML Injection IV ONE (22:40)
[2024-06-25] VITALS (7 sets, daily range): BP systolic 126–157; BP diastolic 47–87
[2024-06-25 04:56] LABS: BASOPHILS ABSOLUTE AUTO 0.05 K/mm3 (0.00-0.23); BASOPHILS PERCENT AUTO 1 % (0-2); EOSINOPHILS ABSOLUTE AUTO 0.51 K/mm3 (0.00-0.68); EOSINOPHILS PERCENT AUTO 5 % (0-6); Hematocrit 40.6 % (37.0-53.0); Hemoglobin 13.7 g/dL (13.5-17.5); IMMATURE GRAN ABSOLUTE AUTO 0.07 K/mm3 (0.00-0.10); IMMATURE GRAN PERCENT AUTO 1 % (0-1); LYMPHOCYTES ABSOLUTE AUTO 2.19 K/mm3 (0.84-5.20); LYMPHOCYTES PERCENT AUTO 23 % (21-46); MONOCYTES ABSOLUTE AUTO 0.71 K/mm3 (0.16-1.47); MONOCYTES PERCENT AUTO 7 % (4-13); Mean Corpuscular HGB 31.9 pg (26.0-34.0); Mean Corpuscular HGB Conc 33.7 g/dL (31.5-36.5); Mean Corpuscular Volume 95 fL (80-100); NEUTROPHILS ABSOLUTE AUTO 6.13 K/mm3 (1.96-9.15); NEUTROPHILS PERCENT AUTO 64 % (41-73); Platelet Count 198 K/mm3 (150-400); RDW Coefficient Variation 14.3 % (11.7-14.2); RDW Standard Deviation 49.6 fL (35.1-46.3); Red Blood Cell Count 4.29 M/mm3 (4.30-5.90); White Blood Cell Count 9.66 K/mm3 (4.00-11.30)
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
[2024-06-25 05:17] LABS: Albumin, Blood 2.4 g/dL (3.4-5.0); Anion Gap 14 mmol/L (3-11); Blood Urea Nitrogen 11 mg/dL (8-24); Bun/Creatinine Ratio 24.9 (12.0-20.0); CO2, Blood 19 mmol/L (21-32); Calcium, Blood 8.5 mg/dL (8.5-10.1); Chloride, Blood 115 mmol/L (98-108); Creatinine, Blood 0.44 mg/dL (0.60-1.20); Glomerular Filtration Rate 113 (60-); Glucose, Blood 66 mg/dL (70-99); Magnesium, Blood 1.8 mg/dL (1.6-2.4); Phosphorus, Blood 2.4 mg/dL (2.5-4.9); Potassium, Blood 3.8 mmol/L (3.5-5.5); Sodium, Blood 144 mmol/L (136-145)
--- NOTE | 2024-06-25 06:46 | NUR ---
UPDATE PT HAD BLOOD GLUCOSE OF 66 ON MORNING LABS. PT NPO PENDING ST EVAL. BEDISDE SWALLOW EVAL DONE PT ABLE TO TOLERATE SMALL SIPS OF ORANGE JUICE. NO ORDERS FOR BG CHECKS. CALL PLACED TO PROVIDER, ORDER FOR BG CHECKS PRN PLACED AND TO CALL BACK IF NO IMPROVEMENT. RECHECKED BG AFTER AFTER 236 ML OF ORANGE JUICE, BG OF 69. CALL PLACED TO PROVIDER NO ANSWER. TRIED CALLIGN AFTER ABOUT 10 MINUTES STILL NO ANSWER. GAVE ANOTHER 118 ML OF JUICE. PT NOT EXPRIENCING S/S OF HYPOGLYCEMIA. WILL MONITOR PT AND REPORT TO ALEXEY RN.
--- NOTE | 2024-06-25 07:35 | NUR ---
ASSUMPTION NOTE: THIS RN TO ASSUME CARE OF PATIENT. PATIENT AWAKE IN BED WATCHING TV. RN ASKED IF PATIENT WAS FEELING LIGHTHEADED,DIZZY OR SWEATY. PATIENT DECLINED AND WAS OFFERED SIPS OF APPLE JUICE. THIS RN CALLED DOCTOR AT START OF SHIFT TO NOTIFY OF LOWEST BLOOD SUGAR AND ASKED FOR MEDICATIONS PATIENT IS NPO BUT A BEDSIDE SWALLOW EVALUATION WAS DONE BY THIS RN. PATIENT DECLINED FOOD AND WAS OFFERED APPLE JUICE. RN TOLD PATIENT WE WOULD FINGER STICK AGAIN TO CHECK BLOOD SUGAR. HAS BED IN LOWEST POSITION AND CALL LIGHT WITHIN REACH.
[2024-06-25] MEDS ORDERED: PARoxetine HCl 20 MG Tab PO SCH (09:00)
--- NOTE | 2024-06-25 09:56 | NUR ---
SPEECH EVALUATION: SPEECH CAME TO SEE PATIENT AND DO AN EVALUATION. PATIENT WAS NOT COOPEARTIVE AND STATED " HE DOES NOT NEED TO BE EVALUATED". PATIENT AFTER ASKED IF "HE WAS GETTING KICKED OUT FOR NOT COOPERATING", PATIENT NOTIFIED THAT NO HE IS NOT HOWEVER HE SHOULD TRY TO HELP HIMSELF HIM CHOKING BROUGHT HIM IN. THIS RN EDUCATED HIM ON NEEDING TO FOLLOW OUR RECOMMENDATIONS WE ARE HERE TO HELP. PATIENT UNDERSTANDING AND STATED "HOW CAN I HELP AND WHAT DO I NEED TO DO". PATIENT HAS CALL LIGHT WITHIN REACH AND BED IN LOWEST POSITION.
--- NOTE | 2024-06-25 17:12 | NUR ---
MD CALLED: THIS RN CALLED REGARDING PATIENT COMPLAINING OF COUGHING AND ASKED FOR SOMETHING, MD OKAY WITH ADDING COUGH SYRUP TO EMAR. AWAITING ORDERS.
[2024-06-25] MEDS ORDERED: Guaifenesin/Dextromethorphan Syrup 5 ML UDC PO PRN (17:25)
--- NOTE | 2024-06-25 17:30 | NUR ---
SHIFT SUMMARY: PATIENT IS ALERT AND ORIENTED X3, NOT ABLE TO GIVE THE SITUATION THAT BROUGHT HIM IN. PATIENT IS ON TELE SHOWING SINUS RYTHM WITH RATE 80'S. SATTING >92% ON ROOM AIR. MD AND PHARMACY CHANGED PATIETNS PHENO ORDER AND LOWERED THE DOSE AND HAD A SET TIME FRAME, LOOK ON EMAR FOR FURTHER DIRECTION. PATIENT WAS ABLE TO REST TODAY AND CIWAS HIGHEST WERE 9. PATIENT WAS SEEN BY ADAPT, SEE PREVIOUS NOTES FOR MORE DETAILS. PATIENTS GIRLFRIEND CAME TO VISIT AND BROUGHT HIM SOME NEW CLOTHES. THIS RN WILL CONTINUE TO MONITOR PATIENT UNTIL SHIFT CHANGE AND FLIGHT OPERATIONS INSPECTOR RN TAKES OVER CARE.
--- NOTE | 2024-06-25 17:44 | NUR ---
SHIFT SUMMARY: PATIENT IS ALERT AND ORIENTED X3, NOT ABLE TO GIVE THE SITUATON BRINGING HIM TO THE HOSPITAL. IS ON TELE SHOWING SINUS RYTHM WITH RATE IN 80'S. SATTING >92% ON ROOM AIR, IV ABX WERE GIVEN PER EMAR. PATIENT CHANGED HIS CODE STATUS AND IS NOW DNR, SEE POLST IN CHART. PATIENT WAS SEEN BY SWALLOW EVALUATION TODAY AND DID NOT COOPERATE, BASELINE DIET WAS ORDERED SEE EMAR. PATIENT WAS GIVEN A BED BATH TODAY AND WAS ABLE TO SLEEP. BLOOD SUGAR ELEVATED THROUGHOUT THE SHIFT HE WAS ABLE TO EAT AND DRINK AFTER BEING SEEN BY SPEECH. PLAN WILL BE TO DISCHARGE POSSIBLY TOMORROW 2.6.25 BACK HOME. THIS RN WILL CONTINUE TO MONITOR UNTIL SHIFT CHANGE AND ELECTRONICS ASSEMBLER AND TESTER RN ASSUMES CARE.
[2024-06-25] MEDS ORDERED: OxyCODONE HCL 5 MG TAB PO PRN (18:50)
--- NOTE | 2024-06-25 18:52 | NUR ---
NIGHT RESIDENT CALLED: THIS RN CALLED NIGHT RESIDENT REQUESTING HOME MEDICATIONS BE RESTARTED AND ASKED FOR ADDITIONAL PAIN MEDICATIONS, PATIENT STATED "THOSE MEDICATIONS WERE NOT WORKING LAST TIME". MD STARTED SOME OF HOME MEDICATIONS.
[2024-06-25] MEDS ORDERED: Gabapentin 300 MG Cap PO SCH (21:00)
[2024-06-25 21:39] LABS: Vancomycin, Trough 17.7 ug/mL (5.0-10.0)
[2024-06-26 03:04] VITALS: BP 139/71
--- NOTE | 2024-06-26 05:12 | NUR ---
SHIFT SUMMARY PT A&O X4, COOPERATIVE TO CARE. HR IN THE 70'S, SR, DENIES CP/PRESSURE, NUMB/TINGLING, SBP STABLE. O2 >92% ON RA, DENIES SOB. PT WITH COLOSTOMY IN PLACE, BROWN STOOL NOTED IN BAG. SUPRAPUBIC SLOAN IN PLACE, DRAINING YELLOW URINE TO GRAVITY. NO ACUTE CHANGES T/O SHIFT. PT DENEIS ANY QUESTIONS OR CONCERNS. WILL MONITOR PT AND REPORT TO DAY SHIFT RN.
[2024-06-26 08:48] VITALS: BP 140/64
[2024-06-26] MEDS ORDERED: Potassium Chloride 20 MEQ/15 ML UDC PO ONE (09:00)
[2024-06-26] MEDS ORDERED: Potassium Phos/Sodium Phos 250 MG PACK PO ONE (09:00)
[2024-06-26] MEDS ORDERED: HYDROmorphone HCl/Pf 1MG SYR IV PRN (09:05)
[2024-06-26] MEDS ORDERED: OxyCODONE HCL 5 MG TAB PO ONE (10:00)
[2024-06-26] MEDS ORDERED: OxyCODONE HCL 5 MG TAB PO PRN (10:00)
[2024-06-26] MEDS ORDERED: Q-Tussin100 MG/5 M PO (11:21)
[2024-06-26] MEDS ORDERED: DOCU100 PO (11:22)
[2024-06-26] MEDS ORDERED: ONDA4ODT MM (11:22)
[2024-06-26 12:27] VITALS: BP 134/66
--- NOTE | 2024-06-26 12:40 | NUR ---
DC TO HOME: PT DISCHARGED TO HOME IN NO ACUTE STRESS. IVS WERE REMOVED WITH CATHETER INTACT. DC PAPER WORK WAS GONE OVER WITH PT. ALL QUESTIONS AND CONCERNS WERE ADDRESSED. PT HAS NO FURTHER QUESTIONS OR CONCERS. PT DC'D VIA WHEEL CHAIR BY HIS CAREGIVER.
== END 2024-06-26 12:40 | disposition hospice, home (50) | DRG 853 ==
LOC: ER 19:33 → PCU 22:06 → ICUE 22:06 → PCU 22:55 → ICUE 06-22 02:27 → PCU 06-24 15:59
PROVIDERS: Family Medicine; Internal Medicine Critical Care Medicine; Orthopaedic Surgery Sports Medicine; Student in an Organized Health Care Education/Training Program; ADMIT Internal Medicine
PROC: 5A1945Z Respiratory Ventilation, 24-96 Consecutive Hours (ICD-10-PCS; 2024-06-21)
PROC: 0BH17EZ Insertion of Endotracheal Airway into Trachea, Via Natural or Artificial Opening (ICD-10-PCS; 2024-06-21)
PROC: 3E033XZ Introduction of Vasopressor into Peripheral Vein, Percutaneous Approach (ICD-10-PCS; 2024-06-21)
PROC: 3E03329 Introduction of Other Anti-infective into Peripheral Vein, Percutaneous Approach (ICD-10-PCS; 2024-06-21)
PROC: 0QBJ0ZX Excision of Right Fibula, Open Approach, Diagnostic (ICD-10-PCS; 2024-06-23)
PROC: 0QBJ0ZZ Excision of Right Fibula, Open Approach (ICD-10-PCS; principal; 2024-06-23 15:30)
DX: A41.9 Sepsis, unspecified organism (principal); G93.41 Metabolic encephalopathy; J69.0 Pneumonitis due to inhalation of food and vomit; R65.21 Severe sepsis with septic shock; J96.01 Acute respiratory failure with hypoxia; N39.0 Urinary tract infection, site not specified; E44.0 Moderate protein-calorie malnutrition; J44.0 Chronic obstructive pulmonary disease with (acute) lower respiratory infection; R64 Cachexia; I96 Gangrene, not elsewhere classified; G82.21 Paraplegia, complete; K21.9 Gastro-esophageal reflux disease without esophagitis; M50.30 Other cervical disc degeneration, unspecified cervical region; G47.00 Insomnia, unspecified; Z51.5 Encounter for palliative care; S81.801A Unspecified open wound, right lower leg, initial encounter; W18.30XA Fall on same level, unspecified, initial encounter; F41.1 Generalized anxiety disorder; R31.9 Hematuria, unspecified; Z93.3 Colostomy status; B19.20 Unspecified viral hepatitis C without hepatic coma; Z79.899 Other long term (current) drug therapy; Z79.891 Long term (current) use of opiate analgesic; G62.9 Polyneuropathy, unspecified; Z98.890 Other specified postprocedural states; Z87.891 Personal history of nicotine dependence; Z68.25 Body mass index [BMI] 25.0-25.9, adult
CPT/HCPCS: 0241U; 31500; 36415; 51700; 51703; 51798; 70450; 71045; 71260; 73590; 80048; 80053; 80069; 80202; 82330; 82803; 82947; 83605; 83690; 83735; 83880; 84100; 84484; 85025; 87040; 87070; 87075; 87077; 87086; 87186; 87205; 92610; 93005; 93010; 93306; 94002; 94003; 94760; 94762; 96365-59; 96366-59; 96368; 96375-59; 99285-25; A9270; C1751; J0171; J0612; J1171; J1650; J2060; J2270; J2405; J2470; J2543; J2704; J3010; J3370; J3475; J7030; J7040; J7050; J7060; Q9967

== ENCOUNTER 2025-01-11 15:06 | Inpatient (IN) | payer OTHER ==
[~2025-01-11] VITALS: Ht 172.7 cm; Wt 48.0 kg
[~2025-01-11 15:06] MED LIST changes: +DOCU100 PO; -EPINEPhrine HCl 0.1 MG/ML STE Water 10ML SYR IV ONE; -FURO40 PO; -GABA800 PO; +ONDA4 PO; +OXYC10TA19 PO; +Q-Tussin100 MG/5 M PO; +Trazodone HCl300 MG PO; -Ventolin/Prove6.7 GM INH
[2025-01-11] MEDS ORDERED: Lidocaine 2% Jelly Uro-Jet TOP ONE (17:20)
[2025-01-11] MEDS ORDERED: HYDROmorphone HCl/Pf 1MG SYR IV ONE (19:20)
[2025-01-11 20:18] LABS: BASOPHILS ABSOLUTE AUTO 0.12 K/mm3 (0.00-0.23); BASOPHILS PERCENT AUTO 1 % (0-2); EOSINOPHILS ABSOLUTE AUTO 0.25 K/mm3 (0.00-0.68); EOSINOPHILS PERCENT AUTO 2 % (0-6); Hematocrit 38.8 % (37.0-53.0); Hemoglobin 13.0 g/dL (13.5-17.5); IMMATURE GRAN ABSOLUTE AUTO 0.24 K/mm3 (0.00-0.10); IMMATURE GRAN PERCENT AUTO 2 % (0-1); LYMPHOCYTES ABSOLUTE AUTO 2.99 K/mm3 (0.84-5.20); LYMPHOCYTES PERCENT AUTO 19 % (21-46); MONOCYTES ABSOLUTE AUTO 1.02 K/mm3 (0.16-1.47); MONOCYTES PERCENT AUTO 7 % (4-13); Mean Corpuscular HGB Conc 33.5 g/dL (31.5-36.5); Mean Corpuscular Volume 91 fL (80-100); NEUTROPHILS ABSOLUTE AUTO 11.00 K/mm3 (1.96-9.15); NEUTROPHILS PERCENT AUTO 71 % (41-73); NRBC ABSOLUTE 0.04 K/mm3 (0.00-0.02); NRBC Auto 0.3 /100 WBC (0.0-0.2); RDW Coefficient Variation 15.3 % (11.7-14.2); RDW Standard Deviation 50.3 fL (35.1-46.3)
[2025-01-11 20:21] LABS: Alanine Aminotransfer (ALT/SGP 8.0 U/L (12-78); Albumin, Blood 1.9 g/dL (3.4-5.0); Albumin/Globulin Ratio 0.4 (0.8-1.8); Anion Gap 8.0 mmol/L (3-11); Aspartate Aminotrans (AST/SGOT 15.0 U/L (12-37); Bilirubin, Total 0.3 mg/dL (0.1-1.0); Blood Urea Nitrogen 13.0 mg/dL (8-24); CO2, Blood 28.0 mmol/L (21-32); Calcium, Blood 8.6 mg/dL (8.5-10.1); Chloride, Blood 104.0 mmol/L (98-108); Creatinine, Blood 0.4 mg/dL (0.60-1.20); Globulin, Blood 4.7 g/dL (2.2-4.0); Glucose, Blood 124.0 mg/dL (70-99); Platelet Count 305 K/mm3 (150-400); Potassium, Blood 4.0 mmol/L (3.5-5.5); Sodium, Blood 136.0 mmol/L (136-145); Total Protein, Blood 6.6 g/dL (6.4-8.2)
[2025-01-11] MEDS ORDERED: NS 1,000 ML IV SCH (20:55)
[2025-01-11 21:06] LABS: Source, Urine Suprapubic Cath
[2025-01-11 21:14] LABS: Bilirubin, Urine Neg (Neg); Color, Urine Red (P-Yellow); Glucose Qualitative, Urine Neg (Neg); Ketones, Urine Neg (Neg); Leukocyte Esterase, Urine 3+ (Neg); Protein, Urine 4+ (Neg); Specific Gravity, Urine 1.010 (1.003-1.022); Urobilinogen, Urine NORM (Normal)
[2025-01-11 21:23] LABS: Red Blood Cells, Urine TNTC /hpf (0-2)
[2025-01-11 21:26] LABS: White Blood Cells, Urine 50-100 /hpf (0-5)
[2025-01-11 22:15] LABS: C-REACTIVE PROTEIN, EXT RANGE 10.3 mg/dL (0.000-0.300)
[2025-01-11] MEDS ORDERED: HYDROmorphone HCl/Pf 1MG SYR IV PRN (22:50)
[2025-01-11] MEDS ORDERED: Naloxone HCl 0.4MG / ML 1ML Vial IV PRN (22:50)
[2025-01-11] MEDS ORDERED: Ondansetron HCl 2 MG / ML 2ML Vial IV PRN (22:50)
[2025-01-12 00:26] VITALS: BP 111/78
--- NOTE | 2025-01-12 01:50 | NUR ---
DR. CHRISTINA NOTIFIED THAT PATIENT SUPRAPUBIC CATHETER IS STILL LEAKING. NO NEW ORDERS FROM
--- NOTE | 2025-01-12 06:04 | NUR ---
PT ADMITTED DURING SHIFT FOR UTI. PATIENT ALERT AND ORIENTED 3-4 WITH INTERMITTENT FORGETFULNESS. PATIENT BED BOUND DUE TO PARAPLEGIA. SP CATHETER IN PLACE- CHANGED IN ED. DRESSING ON CATHETER CHANGED WHE PATIENT ARRIVED TO FLOORD. PATIENT HAS MULTIPLE WOUNDS T/O. PICTURES IN CHART- WOUND CARE COMPLETED. Q 2 TURNS. PATIENT HAS OSTOMY IN PLACE. MEDICATED FOR PAIN- SEE EMAR. BED IN LOW POSITION WITH WHEELS LOCKED. CALL LIGT IN REACH. BED ALARM ON
[2025-01-12 07:51] VITALS: BP 96/68
[2025-01-12] MEDS ORDERED: Lactobacil 2-S.Thermo-Bifido 1 1 Cap PO SCH (09:00)
[2025-01-12] MEDS ORDERED: Enoxaparin 40 MG/0.4 ML SYR SC SCH (09:00)
[2025-01-12 11:43] VITALS: BP 126/77
[2025-01-12] MEDS ORDERED: Morphine Sulfate 20 MG/1ML 1 ML Oral Syringe SL PRN (12:10)
--- NOTE | 2025-01-12 17:34 | NUR ---
SHIFT SUMMARY PATIENT RECEIVED WOUND CARE CARE AND WAS WASHED TODAY. WAS PUT ON COMFORT CARE MEASURES. PATIENT IS DROWSY AT TIMES BUT IS ABLE TO ANSWER SIMPLE QUESTIONS FOR SHORT PERIODS OF TIME BEFORE ZONING OUT. PATIENT STATED THAT AT THIS POINT, MEDICATION IS KEEPING HIM COMFORTABLE. CALL LIGHT RICHIN REACH AND WILL CONTIUE TO MONITOR.
--- NOTE | 2025-01-12 17:52 | NUR ---
PT HAD PRESSURE WOUND AND SUPRAPUBIC AND GROIN AREAS CLEANED AND NEW BANDAGES APPLIED. PLEASE SEE PHOTOS OF WOUNDS. PT WAS TREATED FOR PAIN AND ANXIETY PRIOR TO WOUND CARE.
--- NOTE | 2025-01-12 17:55 | NUR ---
THIS POWER PROJECT MANAGER HAS REVIEWED AND AGREES WITH ALL NOTES AND ASSESSMENTS BY JAZZY PICKENS.
[2025-01-13] MEDS ORDERED: MORP20L PO (16:00)
[2025-01-13] MEDS ORDERED: Ativan1 MG PO (16:02)
[2025-01-13] MEDS ORDERED: HYDHCL25 PO (16:13)
--- NOTE | 2025-01-13 19:26 | NUR ---
End of shift summary: Patient is alert and oriented x2 with bouts of confusion and random conversation. Patient is pleasant and cooperative with care. All medications administered per EMAR and patient medicated for pain throughout the shift. Patient suprapubic catheter dressing changed; all other dressings are clean/dry/intact. Patient utilizing call light appropriately, but still will call out at times for assistance. Bed in lowest position, call light within reach. Report given to night nurse.
--- NOTE | 2025-01-14 04:55 | NUR ---
SHIFT SUMMARY - NO ACUTE CHANGES THIS SHIFT. PT IS COMFORT CARE - SEE EMAR FOR PAIN MANAGEMENT. COLOSTOMY BAG IN PLACE - WNL. SPC IN PLACE WNL. DRESSING CHANGE TO BUTTOCKS LAST NOC. PT DOESN'T USE THE CALL LIGHT, BUT YELLS OUT - OCCASIONALLY FORGETFUL. CALL LIGHT WITHIN REACH. BED IN LOW POSITION.
--- NOTE | 2025-01-14 19:51 | NUR ---
END OF SHIFT SUMMARY: A&Ox3-4. PLEASANT AND COOPERATIVE WITH CARE. CALLS APPROPRIATELY AND IS ABLE TO ADVOCATE NEEDS MOSTLY EFFECTIVELY. BREATHING EVEN AND UNLABORED c RA. COLOSTOMY PATENT. SLOAN PATENT AND DRAINING YELLOW URINE TO GRAVITY. PAINFUL; MEDICATED MULTIPLE TIMES T/O DAY c 20MG ROXANOL WHICH HE TOLERATES WELL. ORDER FOR NO IV ACCESS AND DC IV MEDS. BEDFAST c CONTRACTURES AND MULTIPLE EXCORIATIONS. TOLERATING REGULAR DIET. BED IN LOWEST POSITION, CALL LIGHT WITHIN REACH, ALL NEEDS MET. REPORT TO ONCOMING NURSE.
--- NOTE | 2025-01-15 06:33 | NUR ---
SHIFT SUMMARY PT ALERT TO SELF. REDIRECTABLE TO PLACE AND SITUATION. MEDICATED FOR PAIN T/O NIGHT. DRESSING ON BOTTOM CLEANED AND CHANGED D/T IT BEING SATURATED. PT SEEN SCRATCHING AT BACK AND GROIN AT TIMES DURING THE NIGHT. NEW SECUREMENT DEVICE PLACED FOR SUPRAPUBIC CATH D/T PT PULLING OTHER ONE OFF. PT REPOSITIONED DURING THE NIGHT BUT PT IS ABLE TO TURN HIMSELF BACK ONTO THE RIGHT SIDE, WHICH HE SEEMS TO PREFER. NO ACUTE CHANGES. BED IN LOWEST POSITION AND CALL LIGHT IN REACH.
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
--- NOTE | 2025-01-15 16:10 | NUR ---
PATIENT TRANSPORTED HOME VIA OWN W/C, DISCHARGE INSTRUCTIONS GIVEN TO PATIENT, PATIENT STATED UNDERSTANDING OF MEDICATIONS AND PAIN MEDS. PATIENT REFUSED FURTHER QUESTIONS
== END 2025-01-15 16:09 | disposition hospice, home (50) | DRG 698 ==
LOC: ER 15:06 → MEDS 22:47 → ENPENDDIS 01-15 10:02 → MEDS 01-15 16:09
PROVIDERS: Emergency Medicine; ADMIT Student in an Organized Health Care Education/Training Program
PROC: 0T2BX0Z Change Drainage Device in Bladder, External Approach (ICD-10-PCS; principal; 2025-01-11)
PROC: 8E0ZXY6 Isolation (ICD-10-PCS; 2025-01-11)
DX: T83.510A Infection and inflammatory reaction due to cystostomy catheter, initial encounter (principal); A41.9 Sepsis, unspecified organism; G92.8 Other toxic encephalopathy; L89.313 Pressure ulcer of right buttock, stage 3; G82.21 Paraplegia, complete; R64 Cachexia; Z68.1 Body mass index [BMI] 19.9 or less, adult; T83.038A Leakage of other urinary catheter, initial encounter; Y84.6 Urinary catheterization as the cause of abnormal reaction of the patient, or of later complication, without mention of misadventure at the time of the procedure; L89.152 Pressure ulcer of sacral region, stage 2; Z51.5 Encounter for palliative care; Z66 Do not resuscitate; M50.30 Other cervical disc degeneration, unspecified cervical region; K21.9 Gastro-esophageal reflux disease without esophagitis; G47.00 Insomnia, unspecified; J44.9 Chronic obstructive pulmonary disease, unspecified; B19.20 Unspecified viral hepatitis C without hepatic coma; Z79.899 Other long term (current) drug therapy; Z93.3 Colostomy status; Z98.890 Other specified postprocedural states; Z87.81 Personal history of (healed) traumatic fracture; Z87.891 Personal history of nicotine dependence
CPT/HCPCS: 51705; 74177; 80053; 81001; 83605; 85025; 86140; 94762; 96374-59; 99284-25; A9270; J1171; J1650; J2185; J7030; J7120; Q9967

== ENCOUNTER 2025-01-18 14:18 | Emergency (ER) | payer OTHER ==
[~2025-01-18] VITALS: Ht 170.2 cm; Wt 48.1 kg
[~2025-01-18 14:18] MED LIST changes: +Ativan1 MG PO; +HYDHCL25 PO; +MORP20L PO
[2025-01-18] MEDS ORDERED: CefTRIAXone Sodium 1,000 MG in NS 100 ML IV ONE (16:00)
[2025-01-18] MEDS ORDERED: Morphine Sulfate 4 MG/1 ML Injection IV ONE ×2 (16:10→18:25)
[2025-01-18 16:21] LABS: BASOPHILS ABSOLUTE AUTO 0.08 K/mm3 (0.00-0.23); BASOPHILS PERCENT AUTO 1 % (0-2); EOSINOPHILS ABSOLUTE AUTO 0.55 K/mm3 (0.00-0.68); EOSINOPHILS PERCENT AUTO 4 % (0-6); Hematocrit 33.0 % (37.0-53.0); Hemoglobin 10.9 g/dL (13.5-17.5); IMMATURE GRAN ABSOLUTE AUTO 0.06 K/mm3 (0.00-0.10); IMMATURE GRAN PERCENT AUTO 0 % (0-1); LYMPHOCYTES ABSOLUTE AUTO 3.65 K/mm3 (0.84-5.20); LYMPHOCYTES PERCENT AUTO 25 % (21-46); MONOCYTES ABSOLUTE AUTO 1.16 K/mm3 (0.16-1.47); MONOCYTES PERCENT AUTO 8 % (4-13); Mean Corpuscular HGB Conc 33.0 g/dL (31.5-36.5); Mean Corpuscular Volume 93 fL (80-100); NEUTROPHILS ABSOLUTE AUTO 9.28 K/mm3 (1.96-9.15); NEUTROPHILS PERCENT AUTO 63 % (41-73); NRBC ABSOLUTE 0.00 K/mm3 (0.00-0.02); NRBC Auto 0.0 /100 WBC (0.0-0.2); Platelet Count 307 K/mm3 (150-400); RDW Coefficient Variation 15.3 % (11.7-14.2); RDW Standard Deviation 53.0 fL (35.1-46.3)
[2025-01-18 16:38] LABS: Prothrombin Time Results 10.9 Sec (9.7-11.5)
[2025-01-18 16:41] LABS: Magnesium, Blood 1.8 mg/dL (1.6-2.4)
[2025-01-18 16:43] LABS: Alanine Aminotransfer (ALT/SGP 9 U/L (12-78); Albumin, Blood 1.9 g/dL (3.4-5.0); Albumin/Globulin Ratio 0.5 (0.8-1.8); Anion Gap 3 mmol/L (3-11); Aspartate Aminotrans (AST/SGOT 8 U/L (12-37); Bilirubin, Direct <0.1 mg/dL (0.0-0.3); Bilirubin, Indirect Unable to Calculate mg/dL (0.1-0.7); Bilirubin, Total 0.2 mg/dL (0.1-1.0); Blood Urea Nitrogen 12 mg/dL (8-24); CO2, Blood 32 mmol/L (21-32); Calcium, Blood 8.1 mg/dL (8.5-10.1); Chloride, Blood 103 mmol/L (98-108); Creatinine, Blood 0.36 mg/dL (0.60-1.20); Globulin, Blood 3.5 g/dL (2.2-4.0); Glucose, Blood 97 mg/dL (70-99); Phosphorus, Blood 3.5 mg/dL (2.5-4.9); Potassium, Blood 3.7 mmol/L (3.5-5.5); Sodium, Blood 134 mmol/L (136-145); Total Protein, Blood 5.4 g/dL (6.4-8.2)
[2025-01-18 18:26] VITALS: BP 101/73
[2025-01-18 18:38] LABS: Source, Urine Clean Catch
[2025-01-18 18:42] LABS: Bilirubin, Urine Neg (Neg); Glucose Qualitative, Urine Neg (Neg); Ketones, Urine Neg (Neg); Leukocyte Esterase, Urine 3+ (Neg); Protein, Urine 3+ (Neg); Specific Gravity, Urine 1.010 (1.003-1.022); Urobilinogen, Urine NORM (Normal)
[2025-01-18 18:50] LABS: Color, Urine Pale Yellow (P-Yellow)
[2025-01-18 18:51] LABS: White Blood Cells, Urine TNTC /hpf (0-5)
[2025-01-18] MEDS ORDERED: CEFP200 PO (20:18)
[2025-01-18] MEDS ORDERED: Morphine Sulfate 4 MG/1 ML Injection IM ONE (21:05)
== END 2025-01-18 21:20 | disposition home or self-care (01) ==
LOC: ER 14:18
PROVIDERS: Student in an Organized Health Care Education/Training Program
DX: N39.0 Urinary tract infection, site not specified (principal); A00-B99 Certain infectious and parasitic diseases; Z93.50 Unspecified cystostomy status; L89.314 Pressure ulcer of right buttock, stage 4; G82.20 Paraplegia, unspecified; J44.9 Chronic obstructive pulmonary disease, unspecified; Z87.891 Personal history of nicotine dependence; Z59.89 Other problems related to housing and economic circumstances
CPT/HCPCS: 80053; 81001; 82248; 83605; 83735; 84100; 85025; 85610; 85730; 87040; 93005; 93010; 96365; 96372-59; 96375; 96376; 99284-25; A9270; J0696; J2270

== ENCOUNTER 2025-02-23 17:08 | Emergency (ER) | payer OTHER ==
[~2025-02-23] VITALS: Ht 172.7 cm; Wt 54.4 kg
[~2025-02-23 17:08] MED LIST changes: +CEFP200 PO
[2025-02-23 17:46] VITALS: BP 98/60
== END 2025-02-23 19:40 | disposition home or self-care (01) ==
LOC: ER 17:08
DX: T83.090A Other mechanical complication of cystostomy catheter, initial encounter (principal); Z79.899 Other long term (current) drug therapy; Z87.891 Personal history of nicotine dependence
CPT/HCPCS: 51702

== ENCOUNTER 2025-03-22 20:58 | Emergency (ER) | payer OTHER ==
[~2025-03-22] VITALS: Ht 170.2 cm; Wt 49.9 kg
[~2025-03-22 20:58] MED LIST changes: +AMOCLA875 PO; +JUVEN PACKET1 EA10 PO; +SENN187 PO
[2025-03-22] MEDS ORDERED: NS 1,000 ML IV SCH (23:25)
[2025-03-23] VITALS: BP 119/60
[2025-03-23 00:02] LABS: BASOPHILS ABSOLUTE AUTO 0.07 K/mm3 (0.00-0.23); BASOPHILS PERCENT AUTO 1 % (0-2); EOSINOPHILS ABSOLUTE AUTO 0.59 K/mm3 (0.00-0.68); EOSINOPHILS PERCENT AUTO 5 % (0-6); Hematocrit 39.2 % (37.0-53.0); Hemoglobin 12.7 g/dL (13.5-17.5); IMMATURE GRAN ABSOLUTE AUTO 0.04 K/mm3 (0.00-0.10); IMMATURE GRAN PERCENT AUTO 0 % (0-1); LYMPHOCYTES ABSOLUTE AUTO 3.56 K/mm3 (0.84-5.20); LYMPHOCYTES PERCENT AUTO 32 % (21-46); MONOCYTES ABSOLUTE AUTO 0.90 K/mm3 (0.16-1.47); MONOCYTES PERCENT AUTO 8 % (4-13); Mean Corpuscular HGB Conc 32.4 g/dL (31.5-36.5); Mean Corpuscular Volume 91 fL (80-100); NEUTROPHILS ABSOLUTE AUTO 6.09 K/mm3 (1.96-9.15); NEUTROPHILS PERCENT AUTO 54 % (41-73); NRBC ABSOLUTE 0.00 K/mm3 (0.00-0.02); NRBC Auto 0.0 /100 WBC (0.0-0.2); Platelet Count 286 K/mm3 (150-400); RDW Coefficient Variation 14.6 % (11.7-14.2); RDW Standard Deviation 49.1 fL (35.1-46.3)
[2025-03-23 00:42] LABS: Alanine Aminotransfer (ALT/SGP <6 U/L (12-78); Albumin, Blood 2.2 g/dL (3.4-5.0); Albumin/Globulin Ratio 0.5 (0.8-1.8); Anion Gap 5 mmol/L (3-11); Aspartate Aminotrans (AST/SGOT 7 U/L (12-37); Bilirubin, Total 0.2 mg/dL (0.1-1.0); Blood Urea Nitrogen 14 mg/dL (8-24); CO2, Blood 32 mmol/L (21-32); Calcium, Blood 8.6 mg/dL (8.5-10.1); Chloride, Blood 106 mmol/L (98-108); Creatinine, Blood 0.48 mg/dL (0.60-1.20); Globulin, Blood 4.2 g/dL (2.2-4.0); Glucose, Blood 126 mg/dL (70-99); Potassium, Blood 3.4 mmol/L (3.5-5.5); Sodium, Blood 140 mmol/L (136-145); Total Protein, Blood 6.4 g/dL (6.4-8.2)
== END 2025-03-23 01:40 | disposition home or self-care (01) ==
LOC: ER 20:58
PROVIDERS: Emergency Medicine
DX: D64.9 Anemia, unspecified (principal); E87.6 Hypokalemia; J44.9 Chronic obstructive pulmonary disease, unspecified; G82.20 Paraplegia, unspecified; Z96.0 Presence of urogenital implants; Z87.891 Personal history of nicotine dependence
CPT/HCPCS: 51798; 80053; 85025; 99284-25; J7030

== ENCOUNTER 2025-03-24 13:06 | Emergency (ER) | payer OTHER ==
[~2025-03-24] VITALS: Ht 170.2 cm; Wt 49.0 kg
[2025-03-24 16:57] VITALS: BP 103/67
== END 2025-03-24 16:58 | disposition home or self-care (01) ==
LOC: ER 13:06
DX: T83.038A Leakage of other urinary catheter, initial encounter (principal); J44.9 Chronic obstructive pulmonary disease, unspecified; Z87.891 Personal history of nicotine dependence; Z79.899 Other long term (current) drug therapy
CPT/HCPCS: 10060; 99283-25

== ENCOUNTER → 2025-04-12 | Outpatient (CLI) | payer OTHER | END | disposition home or self-care (01) | LOC: LAB SHORT 13:45 → LAB 13:45 | DX: L08.9 Local infection of the skin and subcutaneous tissue, unspecified (principal) | CPT/HCPCS: 87070; 87205 ==

== ENCOUNTER 2025-04-15 12:11 | Inpatient (IN) | payer OTHER ==
[~2025-04-15] VITALS: Ht 170.2 cm; Wt 50.1 kg
[2025-04-15] VITALS (9 sets, daily range): BP systolic 91–125; BP diastolic 48–90
[2025-04-15] MEDS ORDERED: NS 1,000 ML IV SCH ×3 (12:55→13:50)
[2025-04-15 13:04] LABS: BASOPHILS ABSOLUTE AUTO 0.03 K/mm3 (0.00-0.23); BASOPHILS PERCENT AUTO 0 % (0-2); EOSINOPHILS ABSOLUTE AUTO 0.07 K/mm3 (0.00-0.68); EOSINOPHILS PERCENT AUTO 1 % (0-6); Hematocrit 33.2 % (37.0-53.0); Hemoglobin 11.0 g/dL (13.5-17.5); IMMATURE GRAN ABSOLUTE AUTO 0.04 K/mm3 (0.00-0.10); IMMATURE GRAN PERCENT AUTO 0 % (0-1); LYMPHOCYTES ABSOLUTE AUTO 1.49 K/mm3 (0.84-5.20); LYMPHOCYTES PERCENT AUTO 15 % (21-46); MONOCYTES ABSOLUTE AUTO 0.61 K/mm3 (0.16-1.47); MONOCYTES PERCENT AUTO 6 % (4-13); Mean Corpuscular HGB Conc 33.1 g/dL (31.5-36.5); Mean Corpuscular Volume 90 fL (80-100); NEUTROPHILS ABSOLUTE AUTO 7.44 K/mm3 (1.96-9.15); NEUTROPHILS PERCENT AUTO 77 % (41-73); NRBC ABSOLUTE 0.00 K/mm3 (0.00-0.02); NRBC Auto 0.0 /100 WBC (0.0-0.2); Platelet Count 331 K/mm3 (150-400); RDW Coefficient Variation 14.3 % (11.7-14.2); RDW Standard Deviation 47.0 fL (35.1-46.3)
[2025-04-15 13:13] LABS: Alanine Aminotransfer (ALT/SGP 25.0 U/L (12-78); Albumin, Blood 1.5 g/dL (3.4-5.0); Albumin/Globulin Ratio 0.3 (0.8-1.8); Anion Gap 8.0 mmol/L (3-11); Aspartate Aminotrans (AST/SGOT 33.0 U/L (12-37); Bilirubin, Total 0.3 mg/dL (0.1-1.0); Blood Urea Nitrogen 17.0 mg/dL (8-24); CO2, Blood 29.0 mmol/L (21-32); Calcium, Blood 8.6 mg/dL (8.5-10.1); Chloride, Blood 97.0 mmol/L (98-108); Creatinine, Blood 0.38 mg/dL (0.60-1.20); Globulin, Blood 4.6 g/dL (2.2-4.0); Glucose, Blood 279.0 mg/dL (70-99); Potassium, Blood 3.2 mmol/L (3.5-5.5); Sodium, Blood 131.0 mmol/L (136-145); Total Protein, Blood 6.1 g/dL (6.4-8.2)
[2025-04-15] MEDS ORDERED: CefTRIAXone Sodium 1,000 MG in NS 50 ML IV ONE (13:50)
[2025-04-15 14:01] LABS: Source, Urine Suprapubic Cath
[2025-04-15 14:04] LABS: Bilirubin, Urine Neg (Neg); Color, Urine Yellow (P-Yellow); Glucose Qualitative, Urine Neg (Neg); Ketones, Urine 2+ (Neg); Leukocyte Esterase, Urine 3+ (Neg); Protein, Urine 2+ (Neg); Specific Gravity, Urine 1.020 (1.003-1.022); Urobilinogen, Urine NORM (Normal)
[2025-04-15 14:11] LABS: White Blood Cells, Urine TNTC /hpf (0-5)
[2025-04-15] MEDS ORDERED: Vancomycin (Pharmacy Consult) IV SCH (14:30)
[2025-04-15] MEDS ORDERED: FLU VACC TS2025(65UP)/MF59C/PF 45 MCG/0.5 ML SYRINGE IM SCH (14:30)
--- NOTE | 2025-04-15 19:04 | NUR ---
SHIFT SUMMARY NEURO: ALERT AND ORIENTED TO PERSON, PLACE AND TIME. ANSWERS MOST QUESTIONS APPROPRIATELY. FOLLOWS COMMANDS. CONTRACTURES PRESENT IN ALL EXTERMITIES. BED/WHEELCHAIR BOUND AT BASLINE. AFEBRILE CARDIAC: SR, SBP 100-120S. HR 70-80S. LEVOPHED NOT STARTED PT FLUID RESPONSIVE. PULM: COARSE RML, RLL OTHERWISE CLEAR/DIM. O2 SATS >92% ON RA. GI: COLOSTOMY BAG PRESENT WITH BROWN STOOL PRESENT IN APPLIANCE. : SUPRAPUBIC CATH DRAINING YELLOW URINE. PURLENT DRAINAGE FROM INSERTION SITE. SKIN: MULTIPLE DECUB ULCERS PRESENT SACRUM, L HIP AND COCCYX. WOUND ORDERS PLACED. UNABLE TO PLACE DRESSINGS THIS SHIFT. WITH DRY SCABS PRESENT TO [facility] IN VARYING STAGES OF HEALING CT SCAN COMPLETED.
--- NOTE | 2025-04-15 20:00 | NUR ---
ASSUMPTION OF CARE: ASSUMED CARE AT START OF SHIFT (1899). REPORT RECEIVED FROM DAY SHIFT RN. PT IS DOING WELL AND RESTING IN ED. PT IS ALERT AND CAN FOLLOW SIMPLE COMMANDS. LUNG SOUNDS ARE COARSE AND DIMINISHED IN BASES, ON RA WITH SPO2 >95%. SINUS RYTHM WITH SBP: 90-100'S MAP >65 HR: 70'S. IV: PERIPHERAL IN LAC AND RAC, IV IN RAC HAS BEEN INFLITRATED DURING THE DAY. SUPRAPUBIC CATHETER IN PLACE AND DRAINING TO GRAVITY. SKIN: WOUNDS ON COCCYX AND HIPS AND LOWER EXTREMITIES. PICTURE IN CHART AND WOUND CARE ORDERS IN PLACE. PT EXTREMITIES CONTRACTED, PT STILL HAS SOME MOVEMENT IN UPPER EXTREMITIES. LINES, CORDS, TUBES PLACED OUT OF REACH. CALL LIGHT PLACED WITHIN REACH.
[2025-04-15] MEDS ORDERED: Potassium Chloride 10 Meq Tablet SA PO ONE (20:25)
[2025-04-15] MEDS ORDERED: Lactobacil 2-S.Thermo-Bifido 1 1 Cap PO SCH (21:00)
[2025-04-16] VITALS (39 sets, daily range): BP systolic 67–130; BP diastolic 42–93
[2025-04-16 04:05] LABS: BASOPHILS ABSOLUTE AUTO 0.02 K/mm3 (0.00-0.23); BASOPHILS PERCENT AUTO 0 % (0-2); EOSINOPHILS ABSOLUTE AUTO 0.09 K/mm3 (0.00-0.68); EOSINOPHILS PERCENT AUTO 1 % (0-6); Hematocrit 30.4 % (37.0-53.0); Hemoglobin 10.1 g/dL (13.5-17.5); IMMATURE GRAN ABSOLUTE AUTO 0.04 K/mm3 (0.00-0.10); IMMATURE GRAN PERCENT AUTO 1 % (0-1); LYMPHOCYTES ABSOLUTE AUTO 1.65 K/mm3 (0.84-5.20); LYMPHOCYTES PERCENT AUTO 21 % (21-46); MONOCYTES ABSOLUTE AUTO 0.83 K/mm3 (0.16-1.47); MONOCYTES PERCENT AUTO 11 % (4-13); Mean Corpuscular HGB Conc 33.2 g/dL (31.5-36.5); Mean Corpuscular Volume 89 fL (80-100); NEUTROPHILS ABSOLUTE AUTO 5.28 K/mm3 (1.96-9.15); NEUTROPHILS PERCENT AUTO 67 % (41-73); NRBC ABSOLUTE 0.00 K/mm3 (0.00-0.02); NRBC Auto 0.0 /100 WBC (0.0-0.2); Platelet Count 297 K/mm3 (150-400); RDW Coefficient Variation 14.4 % (11.7-14.2); RDW Standard Deviation 46.8 fL (35.1-46.3)
[2025-04-16 04:36] LABS: Anion Gap 6.0 mmol/L (3-11); Blood Urea Nitrogen 11.0 mg/dL (8-24); CO2, Blood 29.0 mmol/L (21-32); Calcium, Blood 8.2 mg/dL (8.5-10.1); Chloride, Blood 104.0 mmol/L (98-108); Creatinine, Blood 0.41 mg/dL (0.60-1.20); Glucose, Blood 135.0 mg/dL (70-99); Potassium, Blood 3.1 mmol/L (3.5-5.5); Sodium, Blood 136.0 mmol/L (136-145)
--- NOTE | 2025-04-16 06:29 | NUR ---
SHIFT SUMMARY: PT IS DOING WELL AND RESTING IN BED. NO ACUTE CHANGES THROUGHOUT THE SHIFT. PT WAS ABLE TO SLEEP MOST OF THE NIGHT. VITAL SIGNS REMAIN STABLE. IV: POWERGLIDE IN LUE, PERIPHERAL IN LAC AND RAC. SUPRAPUBIC CATHETER IN PLACE AND DRAINGING TO GRAVITY. SKIN, SMALL AMOUNT OF PURLENT AROUND THE SUPRAPUBIC CATH INSERTION SITE, DECUBITUS ULCER ON COCCYX/HIP. LINES AND CORDS PLACED OUT OF REACH. CALL LIGHT PLACED WITHIN REACH.
[2025-04-16] MEDS ORDERED: Enoxaparin 40 MG/0.4 ML SYR SC SCH (09:00)
--- NOTE | 2025-04-16 09:41 | NUR ---
PALLIATIVE CARE NOTE: CONSULT RECEIVED FOR ADVANCED CARE PLANNING. REVIEWED MEDICAL RECORD. PT IS CURRENTLY DNR. POLST ON FILE STATES CPR. NO AD ON FILE. DARRYL COLEMAN IS HEALTHCARE PROXY. PT HAS POLST ON FILE WITH [facility] STATING DNR COMFORT MEASURES. PT IS CURRENTLY IN ICU GETTING TREATMENT. WILL CLARIFY POLST CHOICES.
[2025-04-16] MEDS ORDERED: Polyethylene Glycol 3350 17 gm PO PRN (10:20)
[2025-04-16] MEDS ORDERED: Docusate Sodium/Senna 1 Tab PO PRN (10:20)
--- NOTE | 2025-04-16 13:20 | NUR ---
ATTEMPTED PALLIATIVE CARE VISIT: ATTEMPTED TO VISIT PT. PT STATED HE WAS TOO TIRED TO VISIT. CM CURRENTLY SCREENING PT.
--- NOTE | 2025-04-16 16:00 | NUR ---
SHIFT SUMMARY/TRANSFER TO [facility] RM [id number] NEURO: ALERT AND ORIENTED TO PERSON, PLACE AND TIME. DISORIENTED TO SITUATION. +PARAPLEGIC. BUE SPASTIC AND BLE CONTRACTED AT BASELINE. ANSWERS QUESTIONS APPROPRIATELY. IRRITABLE REGARDING QUESTIONS ABOUT LIFE/ADLS AT HOME. CARDIAC: SB, SBP 90-120S HR 50-60S. MIDODRINE STARTED TODAY BY PULRupesh: LUNGS CLEAR TO AUSCULATION, DIM IN BASES. SPO2 >92% ON RA. GI: ABDOMEN IS SOFT/NON TENDER, LG BM TODAY. COLOSTOMY APPLIANCE CHANGED. : SUPRAPUBIC CATH SITE +PURLENT DRAINAGE AND LEAKING URINE FROM SITE. URINE ALSO DRAINING INTO CATH. +GRANULATION TISSUE OVERGROWTH AROUND SITE, +REDNESS +PAINFUL. SUPRAPUBIC CATH CHANGED AND URINE CULTURE SENT PER DR BORJA. SKIN: MULTIPLE DECUB STG 3-4 WOUNDS, PHOTOS IN CHART. ALL WOUND CLEANSED AND DRESSINGS APPLIED- ALGINATE/MEPLIEX FOAM. NO FLAT TIME ALLOWED AND PT TURNED Q2. PT TRANSFERRED TO [facility] RM [id number] AT 1555.
[2025-04-16] MEDS ORDERED: NS 250 ML IV PRN (16:05)
--- NOTE | 2025-04-16 17:01 | NUR ---
TRANSFER NOTE/SHIFT SUMMARY: PT ARRIVED TO ROOM 352 AT 1600 VIA BED. SLIDER SHEET USED TO TRANSFER. PT IS A PARAPALEGIC WITH CONTRACTED BLE. STG 4 ULCER WOUNDS LOCATED ON THE PATIENTS HIPS, DRESSINGS CHANGED 04/16 IN ICU. SCATTERED BRUISING AND SCABS ACROSS BODY. SUPRAPUBIC CATHETER IS PATENT AND DRAINING TO DRAVITY. SOME PURULENT DRAINAGE SEEN. COLOSTOMY IN PLACE WITH LITTLE FORMED OUTPUT. VSS AT TIME OF TRANSFER WITH MAP >60. O2 >90% ON ROOM AIR. ABX RUNNING PER JUL. PT LYING IN BED AND AWARE OF REPOSITIONING SCHEDULE. BED LOCKED AND IN THE LOWEST POSITION. CALL LT WITHIN REACH.
[2025-04-16] MEDS ORDERED: Arginine/Glutamine/Calcium Hmb 1 Packet PO SCH (21:00)
[2025-04-17] MEDS ORDERED: HYDHCL25 PO (02:14)
[2025-04-17 04:27] VITALS: BP 118/55
[2025-04-17 05:11] LABS: BASOPHILS ABSOLUTE AUTO 0.03 K/mm3 (0.00-0.23); BASOPHILS PERCENT AUTO 0 % (0-2); EOSINOPHILS ABSOLUTE AUTO 0.08 K/mm3 (0.00-0.68); EOSINOPHILS PERCENT AUTO 1 % (0-6); Hematocrit 29.2 % (37.0-53.0); Hemoglobin 9.8 g/dL (13.5-17.5); IMMATURE GRAN ABSOLUTE AUTO 0.06 K/mm3 (0.00-0.10); IMMATURE GRAN PERCENT AUTO 1 % (0-1); LYMPHOCYTES ABSOLUTE AUTO 1.88 K/mm3 (0.84-5.20); LYMPHOCYTES PERCENT AUTO 25 % (21-46); MONOCYTES ABSOLUTE AUTO 0.89 K/mm3 (0.16-1.47); MONOCYTES PERCENT AUTO 12 % (4-13); Mean Corpuscular HGB Conc 33.6 g/dL (31.5-36.5); Mean Corpuscular Volume 89 fL (80-100); NEUTROPHILS ABSOLUTE AUTO 4.72 K/mm3 (1.96-9.15); NEUTROPHILS PERCENT AUTO 62 % (41-73); NRBC ABSOLUTE 0.00 K/mm3 (0.00-0.02); NRBC Auto 0.0 /100 WBC (0.0-0.2); Platelet Count 302 K/mm3 (150-400); RDW Coefficient Variation 14.3 % (11.7-14.2); RDW Standard Deviation 46.7 fL (35.1-46.3)
[2025-04-17 05:57] LABS: Albumin, Blood 1.6 g/dL (3.4-5.0); Anion Gap 8 mmol/L (3-11); Blood Urea Nitrogen 10 mg/dL (8-24); CO2, Blood 27 mmol/L (21-32); Calcium, Blood 8.3 mg/dL (8.5-10.1); Chloride, Blood 104 mmol/L (98-108); Creatinine, Blood 0.32 mg/dL (0.60-1.20); Glucose, Blood 105 mg/dL (70-99); Phosphorus, Blood 2.2 mg/dL (2.5-4.9); Potassium, Blood 3.6 mmol/L (3.5-5.5); Sodium, Blood 135 mmol/L (136-145)
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
[2025-04-17 07:04] VITALS: BP 117/60
[2025-04-17] MEDS ORDERED: Potassium Phos/Sodium Phos 250 MG PACK PO ONE (10:40)
--- NOTE | 2025-04-17 11:59 | NUR ---
RN NOTE MR VENTURA IS OX4. C/O CHRONIC PAIN TO BACK AND LEGS, GIVEN PO MEDS WHEN DUE. SOFT BROWN STOOL EMPTIED FROM OSTOMY, SUPRAPUBIC CATHETER CONTINUES TO HAVE LEAKAGE AROUND IT, HE ALLOWED CATHETER CARE AND REPADDING. MR VENTURA HAS DECLINED SOME OF THE PET SUPPLIES SALESPERSON THIS MORNING, WILL CONTINUE TO TRY TO ASSESS. UNABLE TO ASSESS/CHANGE COCCYX/HIP WOUNDS OF THIS TIME PER PATIENT CHOICE. MR VENTURA IS EAGER TO BE DISCHARGED HOME. BED LOW, CALL LIGHT IN REACH.
[2025-04-17 13:08] VITALS: BP 122/67
[2025-04-17] MEDS ORDERED: Albuterol HFA200 ACT/6.7 GM INH INH PRN (14:25)
[2025-04-17 15:57] VITALS: BP 144/77
--- NOTE | 2025-04-17 16:00 | NUR ---
Shift Summary Mr Crowe is alert, orientated x4. c/o chronic pain to back and legs which he describes between 7-01/27, treated with repositioning and analgesia. No moaning or grimacing noticed. ~Q2hrly repositioning with wedges by RECORDING STUDIO INTERN. +soft brown stool to ostomy. Urine leakage around suprapubic bowman catheter. Skin around suprapubic catheter is red/irritated, pt allowed catheter care/cleaning. Poor appetite and poor nutrition. He has refused protein suppliments and drinks. He talked with Dr Rincon and said that he would like to go home with hospice when ready for discharge. Mr Crowe has declined wound care today. Bed low, call light in reach.
[2025-04-17 18:00] VITALS: BP 132/76
[2025-04-17 19:10] VITALS: BP 132/76
[2025-04-18] VITALS (8 sets, daily range): BP systolic 97–128; BP diastolic 56–80
--- NOTE | 2025-04-18 03:47 | NUR ---
SHIFT SUMMARY: i WAS UNABLE TO DO A SHIFT ASSESSMENT AT THE START OF SHIFT DUE TO PT NOT LETTING ME. PT REFUSED TO TAKE PROBIOTIC BUT TOOK OTHER MEDS FOR NIGHT TIME. PT IRRIATABLE AND STATES HE WANTS TO BE LEFT ALONE. ROUNDED ON PT BY OPENING DOOR TO CHECK ON HIM. THIS IRRITATED THE PT AND PT WAS EDUCATED THAT WE ARE REQUIRED TO ROUND/ CHECK IN EVERY TWO HOURS AT NIGHT TIME.
--- NOTE | 2025-04-18 04:56 | NUR ---
CHANGED PTS DRESSING ON COCCYX AND BOTH HIPS. WOUND CLEANSED WITH WOUND CLEANSER AND CAUSE AND THEN REDRESSED WITH A NEW MEPALEX. SUPER PUBIC CATH SITE LEAKING AND REQUIRED A FULL BED CHANGE. SITE CLEANSED WITH WOUND CLEANSER AND REDRESSED WITH SPLIT GAUZE AND A MALE ANA PAD TYPE DRESSING.
[2025-04-18 10:22] LABS: Albumin, Blood 1.6 g/dL (3.4-5.0); Anion Gap 7 mmol/L (3-11); Blood Urea Nitrogen 7 mg/dL (8-24); CO2, Blood 31 mmol/L (21-32); Calcium, Blood 8.3 mg/dL (8.5-10.1); Chloride, Blood 97 mmol/L (98-108); Creatinine, Blood 0.35 mg/dL (0.60-1.20); Glucose, Blood 120 mg/dL (70-99); Phosphorus, Blood 3.0 mg/dL (2.5-4.9); Potassium, Blood 3.2 mmol/L (3.5-5.5); Sodium, Blood 132 mmol/L (136-145)
--- NOTE | 2025-04-18 14:38 | NUR ---
UPDATED BY PROVIDER THAT PATIENT IS REQUESTING TO GO HOME WITH HOSPICE. PATIENT IS ASLEEP DURING MY ROUNDS. DISCUSSED WITH BSRN AND CARE COORDINATION.
--- NOTE | 2025-04-18 18:33 | NUR ---
SHIFT SUMMARY PATIENT ALERT AND ORIENTED X4. NO TELE ON RA. NO ACUTE CHANGES THROUGHOUT SHIFT. REPOSITIONED Q2H DURING SHIFT. MEDICATED PER JUL. PATIENT DOES NOT USE CALL LIGHT. SUPRA PUBIC DRESSING CHANGED DURING THIS SHIFT. BED IN LOCKED AND IN LOWEST POSITION. CALL LIGHT WITHIN REACH.
--- NOTE | 2025-04-18 23:52 | NUR ---
CALL PLACED TO PROVIDER REGARDING GIVING PT PO OXICODONE DUE TO SOFTER BPs SINCE THE START OF SHIFT. PROVIDER GAVE AN ORDER OVER THE PHONE FOR TYLENOL. PT ALSO EDUCATED TO DRINK FLUIDS WELL.
--- NOTE | 2025-04-19 04:05 | NUR ---
SHIFT SUMMARY: PT IS AOX4. PT CALLS OUT FOR HELP INSTEAD OF USING CALL LIGHT. PT EDUCATED TO USE CALL LIGHT INSTEAD OF SHOUTING/YELLING OUT WHAT HE NEEDS. PT HAS A SUPERPUBIC CATH IN PLACE THAT IS LEAKING. PT ALSO HAS THREE WOUNDS ON COCCYX AND BOTH HIPS THAT ARE DRESSED. PT IS A LIFT PT AND IS A PARAPLEGIC AND IS WHEEL CHAIR BOUND. PT IS IRRIATBLE BUT FOUND IF YOU EXPLAIN WHAT YOU ARE GOING TO DO BEFORE DOING ANY CARE THE PTS ANXIETY DECREASES. BED ALARM IS ON FOR SAFETY AND PT CALL LIGHT IN REACH.
[2025-04-19 04:17] VITALS: BP 92/51
[2025-04-19] MEDS ORDERED: NS 500 ML IV ONE (04:25)
[2025-04-19] MEDS ORDERED: NS 1,000 ML IV SCH (04:30)
--- NOTE | 2025-04-19 04:43 | NUR ---
CALL PLACED TO PROVIDER REGARDING LOW BP. PROVIDER PLACED ORDERS TO GIVE A 500 BOLUS OF NS AND THEN 100 MLS RUNNING AT 75MLS/HR AFTER THE BOLUS.
--- NOTE | 2025-04-19 04:44 | NUR ---
WOUND CARE: PT DRESSING CHANGED AND CLEANSED ON BOTH HIPS AND COCCYX. LEFT OUTTER KNEE WOUND DRESSING CHANGED WELL. ALL DRESSINGS C/D/I. SUPER PUBIC CATH IS LEAKING. CATH SITE CLEANSED AND DRESSING CHANGED. SITE IS ALSO WRAPPED IN MALE PERIPAD TO CAPTURE ANY FURTHER URINE. CATHETER SITE IS C/D/I.
[2025-04-19 05:33] VITALS: BP 105/63
[2025-04-19 06:44] LABS: Anion Gap 8.0 mmol/L (3-11); Blood Urea Nitrogen 14.0 mg/dL (8-24); CO2, Blood 30.0 mmol/L (21-32); Calcium, Blood 8.3 mg/dL (8.5-10.1); Chloride, Blood 104.0 mmol/L (98-108); Creatinine, Blood 0.37 mg/dL (0.60-1.20); Glucose, Blood 134.0 mg/dL (70-99); Potassium, Blood 4.0 mmol/L (3.5-5.5); Sodium, Blood 138.0 mmol/L (136-145)
[2025-04-19 07:36] VITALS: BP 98/55
[2025-04-19 12:58] VITALS: BP 111/62
[2025-04-19] MEDS ORDERED: Lidocaine 2% Viscous Soln 20 ML,Nystatin 100,000 Unit/ml Susp 20 ML,Mag Hydrox/Al Hydro... MT SCH (16:30)
--- NOTE | 2025-04-19 16:42 | NUR ---
SHIFT SUMMARY NO ACUTE CHANGES, A/Ox4, ABLE TO MAKE NEEDS KNOWN AND USES CALL SYSTEM APPROPRIATELY. PT REPORTS 8/10 PAIN, MEDICATED PER EMAR WITH POOR RESULTS. PROVIDER NOTED PT ON LOWER DOSE THAN HE TAKES AT HOME - NEW ORDERS PLACED. DRESSING TO R HIP CHANGED BY THIS RN DUE TO SOILING, ALL OTHER DRESSINGS C/D/I AND CHANGED BY NOC SHIFT MERCHANDISE SHOPPER AT APPROX 0400. CATHETER CARE COMPLETED - DRAINING CLEAR YELLOW URINE. COLOSTOMY BAG CHANGED TODAY DUE TO LEAKING. FAIR APPETITE, GOOD FLUID INTAKE. BLOOD PRESSURE IMPROVING. NS @ 75 ML/HR x1 BAG ALMOST COMPLETE. PT CURRENTLY RESTING IN BED WITH BED IN LOWEST POSITION AND CALL LIGHT IN REACH. PT APPEARS COMFORTABLE AND IN NO DISTRESS.
[2025-04-19 16:58] VITALS: BP 117/62
[2025-04-19 20:02] VITALS: BP 114/72
[2025-04-20 03:24] VITALS: BP 108/65
[2025-04-20 06:01] LABS: BASOPHILS ABSOLUTE AUTO 0.05 K/mm3 (0.00-0.23); BASOPHILS PERCENT AUTO 0 % (0-2); EOSINOPHILS ABSOLUTE AUTO 0.54 K/mm3 (0.00-0.68); EOSINOPHILS PERCENT AUTO 5 % (0-6); Hematocrit 29.7 % (37.0-53.0); Hemoglobin 9.8 g/dL (13.5-17.5); IMMATURE GRAN ABSOLUTE AUTO 0.12 K/mm3 (0.00-0.10); IMMATURE GRAN PERCENT AUTO 1 % (0-1); LYMPHOCYTES ABSOLUTE AUTO 3.50 K/mm3 (0.84-5.20); LYMPHOCYTES PERCENT AUTO 31 % (21-46); MONOCYTES ABSOLUTE AUTO 0.92 K/mm3 (0.16-1.47); MONOCYTES PERCENT AUTO 8 % (4-13); Mean Corpuscular HGB Conc 33.0 g/dL (31.5-36.5); Mean Corpuscular Volume 90 fL (80-100); NEUTROPHILS ABSOLUTE AUTO 6.24 K/mm3 (1.96-9.15); NEUTROPHILS PERCENT AUTO 55 % (41-73); NRBC ABSOLUTE 0.00 K/mm3 (0.00-0.02); NRBC Auto 0.0 /100 WBC (0.0-0.2); Platelet Count 324 K/mm3 (150-400); RDW Coefficient Variation 15.0 % (11.7-14.2); RDW Standard Deviation 49.3 fL (35.1-46.3)
[2025-04-20 06:51] LABS: Alanine Aminotransfer (ALT/SGP 17.0 U/L (12-78); Albumin, Blood 1.4 g/dL (3.4-5.0); Albumin/Globulin Ratio 0.3 (0.8-1.8); Anion Gap 5.0 mmol/L (3-11); Aspartate Aminotrans (AST/SGOT 25.0 U/L (12-37); Bilirubin, Total 0.2 mg/dL (0.1-1.0); Blood Urea Nitrogen 24.0 mg/dL (8-24); CO2, Blood 30.0 mmol/L (21-32); Calcium, Blood 8.1 mg/dL (8.5-10.1); Chloride, Blood 103.0 mmol/L (98-108); Creatinine, Blood 0.33 mg/dL (0.60-1.20); Globulin, Blood 4.1 g/dL (2.2-4.0); Glucose, Blood 114.0 mg/dL (70-99); Potassium, Blood 4.7 mmol/L (3.5-5.5); Sodium, Blood 133.0 mmol/L (136-145); Total Protein, Blood 5.5 g/dL (6.4-8.2)
[2025-04-20 07:25] VITALS: BP 83/49
--- NOTE | 2025-04-20 07:49 | NUR ---
NO ACUTE CHANGES FOR SHEARING SHED HAND, PT RELUCTANT TO TURN Q2, DRESSINGS CHANGED.
[2025-04-20 12:22] VITALS: BP 104/63
[2025-04-20 20:28] VITALS: BP 104/78
[2025-04-21 04:01] VITALS: BP 104/85
--- NOTE | 2025-04-21 04:47 | NUR ---
SHIFT SUMMARY: PT AOX3, PT PLEASANT, AND COOPERATIVE IN CARE. TOLERATING MEDICATIONS WELL, ABKLE TO EAT A FEW SNACKS BUT NOT MUCH MEAL. EXCITED TO GO HOME. SUPRAPUBIC CATHETER HAVING SOME LEAKAGE AT THE SITE. WOUND DRESSINGS STILL CDI. PT IN BED RESTING, BED IN LOWEST POSITION, CALL LIGHT IN REACH. CONTINUING CARE.
[2025-04-21 07:44] VITALS: BP 98/57
[2025-04-21 10:07] LABS: BASOPHILS ABSOLUTE AUTO 0.05 K/mm3 (0.00-0.23); BASOPHILS PERCENT AUTO 0 % (0-2); EOSINOPHILS ABSOLUTE AUTO 0.61 K/mm3 (0.00-0.68); EOSINOPHILS PERCENT AUTO 4 % (0-6); Hematocrit 31.7 % (37.0-53.0); Hemoglobin 10.4 g/dL (13.5-17.5); IMMATURE GRAN ABSOLUTE AUTO 0.09 K/mm3 (0.00-0.10); IMMATURE GRAN PERCENT AUTO 1 % (0-1); LYMPHOCYTES ABSOLUTE AUTO 3.32 K/mm3 (0.84-5.20); LYMPHOCYTES PERCENT AUTO 24 % (21-46); MONOCYTES ABSOLUTE AUTO 0.87 K/mm3 (0.16-1.47); MONOCYTES PERCENT AUTO 6 % (4-13); Mean Corpuscular HGB Conc 32.8 g/dL (31.5-36.5); Mean Corpuscular Volume 90 fL (80-100); NEUTROPHILS ABSOLUTE AUTO 8.96 K/mm3 (1.96-9.15); NEUTROPHILS PERCENT AUTO 64 % (41-73); NRBC ABSOLUTE 0.00 K/mm3 (0.00-0.02); NRBC Auto 0.0 /100 WBC (0.0-0.2); Platelet Count 436 K/mm3 (150-400); RDW Coefficient Variation 15.1 % (11.7-14.2); RDW Standard Deviation 50.1 fL (35.1-46.3)
[2025-04-21 10:27] LABS: Alanine Aminotransfer (ALT/SGP 19.0 U/L (12-78); Albumin, Blood 1.7 g/dL (3.4-5.0); Albumin/Globulin Ratio 0.4 (0.8-1.8); Anion Gap 5.0 mmol/L (3-11); Aspartate Aminotrans (AST/SGOT 19.0 U/L (12-37); Bilirubin, Total 0.2 mg/dL (0.1-1.0); Blood Urea Nitrogen 25.0 mg/dL (8-24); CO2, Blood 36.0 mmol/L (21-32); Calcium, Blood 8.4 mg/dL (8.5-10.1); Chloride, Blood 98.0 mmol/L (98-108); Creatinine, Blood 0.4 mg/dL (0.60-1.20); Globulin, Blood 4.6 g/dL (2.2-4.0); Glucose, Blood 108.0 mg/dL (70-99); Potassium, Blood 4.6 mmol/L (3.5-5.5); Sodium, Blood 134.0 mmol/L (136-145); Total Protein, Blood 6.3 g/dL (6.4-8.2)
[2025-04-21 12:34] VITALS: BP 92/45
--- NOTE | 2025-04-21 12:43 | NUR ---
Spiritual Care Visit. Pt. is awake in his bed and welcomed my visit. Pt. is pleasant, but displayed some evidence of mild anxiety. During a life review the Pt. verbalized that "he was going to ," and that he expected to be able to be discahrged home soon. Listened with empathy and a calming presence. Pt. verbalized concerns about his spiritual readiness for heaven. Pastoral care is given. Pt. displayed evidence of understanding and agreement and welcomed prayer. Prayed with the Pt. Pt. verbalized gratitude for the spiritual care visit.
[2025-04-21 15:39] VITALS: BP 94/54
[2025-04-21 17:42] VITALS: BP 100/60
--- NOTE | 2025-04-21 18:35 | NUR ---
SHIFT SUMMARY PATIENT ALERT AND ORIENTED X 3-4. COOPERATIVE DURING CARE. NO ACUTE CHANGES THROUGHOUT SHIFT. MAKE NEEDS KNOWN. COMPLAINT OF PAIN AND MEDICATED PER MAR. REPOSITIONED Q2H DURING SHIFT. PATIENT DOES NOT USE CALL LIGHT. WOUND DRESSING AND SUPRA PUBIC DRESSING CHANGED DURING THIS SHIFT. NEW WOUND PHOTOS IN CHART. BED IN LOCKED AND IN LOWEST POSITION. CALL LIGHT WITHIN REACH.
[2025-04-21 21:48] VITALS: BP 112/60
[2025-04-22 02:22] VITALS: BP 104/67
--- NOTE | 2025-04-22 04:13 | NUR ---
SHIFT SUMMARY ADMITTED FOR UTI. DNR CODE. PLAN IS FOR DC HOME W/HH. PARAPLEGIC, WITH SUPRAPUBIC SLOAN IN PLACE. REGULAR DIET. ON RA. BEDREST. Q2 TURNS DUE TO SKIN BREAKDOWN/PRESSURE ULCERS. DRESSINGS IN PLACE. A&O X2-3, LABILE MOODS/CONFUSED AT TIMES. OSTOMY IS PATENT. POWERGLIDE IN LUE. HE DOES REFUSE CARE AT TIMES, HE DID REFUSE HIS PO MEDS THIS SHIFT. I DID GIVE HIS IV ANTIB RX.
[2025-04-22 07:34] VITALS: BP 106/61
--- NOTE | 2025-04-22 08:21 | NUR ---
ASSUMPTION OF CARE: ASSUMED CARE OF PATIENT. AWAKE DURING SHIFT-CHANGE REPORT, ATTEMPTING TO GET OUT OF BED, STATING HE WANTS TO LEAVE. DISCUSSED COMPLETING DAY 11/23 OF IV ABT. REFUSING BLOOD DRAW THIS MORNING AND AGAIN NOW. REQUESTING PAIN MEDS FOR PAIN 12/27 "EVERYWHERE". BED IN LOWEST POSITION. CALL LIGHT WITHIN REACH.
[2025-04-22 09:32] LABS: BASOPHILS ABSOLUTE AUTO 0.04 K/mm3 (0.00-0.23); BASOPHILS PERCENT AUTO 0 % (0-2); EOSINOPHILS ABSOLUTE AUTO 0.26 K/mm3 (0.00-0.68); EOSINOPHILS PERCENT AUTO 2 % (0-6); Hematocrit 31.6 % (37.0-53.0); Hemoglobin 10.3 g/dL (13.5-17.5); IMMATURE GRAN ABSOLUTE AUTO 0.09 K/mm3 (0.00-0.10); IMMATURE GRAN PERCENT AUTO 1 % (0-1); LYMPHOCYTES ABSOLUTE AUTO 2.43 K/mm3 (0.84-5.20); LYMPHOCYTES PERCENT AUTO 16 % (21-46); MONOCYTES ABSOLUTE AUTO 0.75 K/mm3 (0.16-1.47); MONOCYTES PERCENT AUTO 5 % (4-13); Mean Corpuscular HGB Conc 32.6 g/dL (31.5-36.5); Mean Corpuscular Volume 90 fL (80-100); NEUTROPHILS ABSOLUTE AUTO 11.70 K/mm3 (1.96-9.15); NEUTROPHILS PERCENT AUTO 77 % (41-73); NRBC ABSOLUTE 0.00 K/mm3 (0.00-0.02); NRBC Auto 0.0 /100 WBC (0.0-0.2); Platelet Count 499 K/mm3 (150-400); RDW Coefficient Variation 15.3 % (11.7-14.2); RDW Standard Deviation 50.4 fL (35.1-46.3)
[2025-04-22 09:50] LABS: Alanine Aminotransfer (ALT/SGP 17.0 U/L (12-78); Albumin, Blood 1.7 g/dL (3.4-5.0); Albumin/Globulin Ratio 0.4 (0.8-1.8); Anion Gap 6.0 mmol/L (3-11); Aspartate Aminotrans (AST/SGOT 15.0 U/L (12-37); Bilirubin, Total 0.1 mg/dL (0.1-1.0); Blood Urea Nitrogen 27.0 mg/dL (8-24); CO2, Blood 35.0 mmol/L (21-32); Calcium, Blood 8.4 mg/dL (8.5-10.1); Chloride, Blood 99.0 mmol/L (98-108); Creatinine, Blood 0.49 mg/dL (0.60-1.20); Globulin, Blood 4.5 g/dL (2.2-4.0); Glucose, Blood 166.0 mg/dL (70-99); Potassium, Blood 3.9 mmol/L (3.5-5.5); Sodium, Blood 136.0 mmol/L (136-145); Total Protein, Blood 6.2 g/dL (6.4-8.2)
--- NOTE | 2025-04-22 12:15 | NUR ---
Spiritua Care Visit. Pt. is awake in bed and welcomed my visit. Facilitated an update and Pt. verbalized his expectation that he was going ot be discharged home later today. Listened with emapthy and interest. Considered matters of aron and his community of [place] Pt. welcomed prayed. Prayed with the Pt. Pt. verbalized gratitude for the spiritual care visit.
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
== END 2025-04-22 13:53 | disposition home health service (06) | DRG 698 ==
LOC: ER 12:11 → ICUE 14:28 → MEDS 14:28 → ICUE 16:01 → MEDS 16:16 → ICUE 18:00 → MEDS 04-16 15:48
PROVIDERS: Emergency Medicine; Family Medicine; ADMIT Family Medicine
DX: T83.510A Infection and inflammatory reaction due to cystostomy catheter, initial encounter (principal); A41.52 Sepsis due to Pseudomonas; L89.154 Pressure ulcer of sacral region, stage 4; R65.21 Severe sepsis with septic shock; A41.81 Sepsis due to Enterococcus; E43 Unspecified severe protein-calorie malnutrition; N39.0 Urinary tract infection, site not specified; R64 Cachexia; G82.20 Paraplegia, unspecified; E87.1 Hypo-osmolality and hyponatremia; F11.20 Opioid dependence, uncomplicated; Z68.1 Body mass index [BMI] 19.9 or less, adult; Z66 Do not resuscitate; R62.7 Adult failure to thrive; J44.9 Chronic obstructive pulmonary disease, unspecified; F41.1 Generalized anxiety disorder; G62.9 Polyneuropathy, unspecified; E87.6 Hypokalemia; D64.9 Anemia, unspecified; R73.9 Hyperglycemia, unspecified; Z93.2 Ileostomy status; Z93.3 Colostomy status; Z98.890 Other specified postprocedural states; Z74.01 Bed confinement status; Z86.19 Personal history of other infectious and parasitic diseases; Y84.6 Urinary catheterization as the cause of abnormal reaction of the patient, or of later complication, without mention of misadventure at the time of the procedure
CPT/HCPCS: 36415; 74177; 76857; 80048; 80053; 80069; 81001; 83605; 85025; 87040; 87070; 87076; 87077; 87086; 87186; 87205; 94760; 96361; 96365-59; 99284-25; A9270; C1751; J0696; J1650; J2185; J3373; J7030; J7040; J7050; J7120; Q9967